=== PATIENT | female | born 1950 | race American Indian/Alaskan Native ===

== ENCOUNTER 2018-08-04 12:30 | Inpatient (IN) | payer MEDICARE ==
--- NOTE | 2018-08-04 12:53 | Emergency Department Report ---
Blank Doc - Documentation Documentation: This is a 68-year-old female that presents with mal lower legs swelling and SOB. HX of CHF. Stated has been out of her insulin medications since February of last year. This initial assessment/diagnostic orders/clinical plan/treatment(s) is/are subject to change based on patient's health status, clinical progression and re- assessment by fellow clinical providers in the ED. Further treatment and workup at subsequent clinical providers discretion. Patient/guardians urged not to elope from the ED as their condition may be serious if not clinically assessed and managed. Initial orders include: 1- Patient sent to MAIN ED for further evaluation and treatment 2- labs 3- CXR 4- EKG 5- blood sugar
[2018-08-04] MEDS ORDERED: LASIX IV ONE (13:23)
--- NOTE | 2018-08-04 13:28 | Emergency Department Report ---
ED Shortness of Breath HPI - General Chief Complaint: Dyspnea/Respdistress Stated Complaint: SOB Time Seen by Provider: 08/04/18 12:52 Source: patient Mode of arrival: Wheelchair Limitations: No Limitations - History of Present Illness Initial Comments: Patient is 68 year old female with history of congestive heart failure, hypertension and diabetes. Patient presented to the ER complaining of shortness of breath and difficulty in breathing over the last 3 days. Patient stated that she has a diagnosis of congestive heart failure but she is not taking any medication. Patient found to have an oxygen saturation of 84%. Patient denied any chest pain. Patient also complaining of bilateral lower extremity swelling. I will am examining her patient found to have a fungating right breast mass. Patient stated that she discovered this mass three years ago and she did not wanted to be checked. She stated that she is here for the shortness of breath only. Patient informed this is most likely a breast cancer but she said she does not want to talk about it. MD Complaint: shortness of breath, cough -: days(s) (3) Known History Of: congestive heart failure Treatments Prior to Arrival: none - Related Data Home Oxygen Therapy: No Home Medications Medication Instructions Recorded Confirmed Last Taken No Known Home Medications [No 08/04/18 08/04/18 Unknown Reported Home Medications] Allergies Allergy/AdvReac Type Severity Reaction Status Date / Time No Known Allergies Allergy Unverified 08/04/18 12:53 ED Review of Systems ROS: Stated complaint: SOB Other details as noted in HPI Comment: All other systems reviewed and negative Constitutional: denies: chills, fever Respiratory: cough, orthopnea, shortness of breath, SOB with exertion, SOB at rest. denies: wheezing Cardiovascular: palpitations. denies: chest pain Gastrointestinal: denies: abdominal pain, nausea, vomiting, diarrhea, constipation, hematemesis, melena Neurological: denies: headache, weakness, numbness, paresthesias, confusion, abnormal gait ED Past Medical Hx - Past Medical History Previous Medical History?: Yes Hx Congestive Heart Failure: Yes Hx Diabetes: Yes - Social History Smoking Status: Former Smoker Substance Use Type: None - Medications Home Medications: Home Medications Medication Instructions Recorded Confirmed Last Taken Type No Known Home Medications [No 08/04/18 08/04/18 Unknown History Reported Home Medications] ED Physical Exam - General Limitations: No Limitations General appearance: alert, in distress (moderate respiratory distress) - Head Head exam: Present: atraumatic, normocephalic, normal inspection - Eye Eye exam: Present: normal appearance - ENT ENT exam: Present: normal exam, normal orophraynx, mucous membranes moist - Neck Neck exam: Present: normal inspection, full ROM. Absent: tenderness, meningismus, lymphadenopathy, thyromegaly - Respiratory Respiratory exam: Present: respiratory distress, rales, decreased breath sounds. Absent: wheezes, rhonchi, stridor, accessory muscle use, prolonged expiratory - Cardiovascular Cardiovascular Exam: Present: tachycardia - GI/Abdominal GI/Abdominal exam: Present: soft, normal bowel sounds. Absent: distended, tenderness, guarding, rebound, rigid, organomegaly, mass, bruit, pulsatile mass, hernia - Extremities Exam Extremities exam: Present: normal inspection, pedal edema - Back Exam Back exam: Present: normal inspection, full ROM - Neurological Exam Neurological exam: Present: alert, oriented X3, CN II-XII intact, normal gait, reflexes normal. Absent: motor sensory deficit - Skin Skin exam: Present: warm, intact, normal color ED Course Vital Signs 08/04/18 08/04/18 08/04/18 12:53 13:28 13:30 Temperature 98.7 F Pulse Rate 102 H 101 H 99 H Respiratory 18 15 21 Rate Blood Pressure 157/88 Blood Pressure [Left] O2 Sat by Pulse 84 95 94 Oximetry 08/04/18 08/04/18 08/04/18 13:46 14:00 14:09 Temperature Pulse Rate 97 H 97 H 96 H Respiratory 15 15 22 Rate Blood Pressure 189/100 Blood Pressure 188/97 [Left] O2 Sat by Pulse 100 100 Oximetry 08/04/18 08/04/18 08/04/18 14:16 14:20 14:30 Temperature Pulse Rate 96 H 95 H Respiratory 15 22 14 Rate Blood Pressure 188/97 188/104 Blood Pressure [Left] O2 Sat by Pulse 100 99 Oximetry 08/04/18 08/04/18 08/04/18 14:45 15:01 15:15 Temperature Pulse Rate 94 H 93 H 98 H Respiratory 14 17 12 Rate Blood Pressure 188/97 193/100 193/100 Blood Pressure [Left] O2 Sat by Pulse 99 100 85 Oximetry 08/04/18 08/04/18 08/04/18 15:31 15:45 16:00 Temperature Pulse Rate 99 H 91 H 89 Respiratory 29 H 17 23 Rate Blood Pressure 193/100 207/96 187/107 Blood Pressure [Left] O2 Sat by Pulse 100 100 Oximetry 08/04/18 08/04/18 08/04/18 16:09 16:15 16:16 Temperature Pulse Rate 92 H 91 H 92 H Respiratory 18 17 Rate Blood Pressure 207/96 212/115 Blood Pressure 212/115 [Left] O2 Sat by Pulse 100 100 Oximetry 08/04/18 08/04/18 08/04/18 16:30 16:45 16:58 Temperature Pulse Rate 92 H 89 Respiratory 25 H 19 20 Rate Blood Pressure 184/114 184/114 Blood Pressure 204/111 [Left] O2 Sat by Pulse 100 100 100 Oximetry 08/04/18 08/04/18 08/04/18 17:00 17:15 17:31 Temperature Pulse Rate 89 89 88 Respiratory 12 Rate Blood Pressure 184/109 184/114 187/107 Blood Pressure [Left] O2 Sat by Pulse 100 100 100 Oximetry 08/04/18 08/04/18 08/04/18 17:45 18:00 18:06 Temperature Pulse Rate 89 89 87 Respiratory Rate Blood Pressure 184/109 182/110 182/110 Blood Pressure [Left] O2 Sat by Pulse 100 100 Oximetry 08/04/18 08/04/18 08/04/18 18:15 18:26 18:31 Temperature Pulse Rate 84 96 H Respiratory 20 20 Rate Blood Pressure 182/110 Blood Pressure 193/105 176/96 [Left] O2 Sat by Pulse 100 100 100 Oximetry ED Medical Decision Making - Lab Data Result diagrams: 08/04/18 13:30 08/04/18 13:30 - EKG Data -: EKG Interpreted by Fl EKG shows normal: sinus rhythm - EKG Data Interpretation: no acute changes - Radiology Data Radiology results: report reviewed Chest x-ray is showing bilateral pleural effusion and pulmonary edema consistent with congestive heart failure. - Medical Decision Making Patient is 68 year old female with history of congestive heart failure, hypertension and diabetes. Patient presented to the ER complaining of shortness of breath and difficulty in breathing over the last 3 days. Patient stated that she has a diagnosis of congestive heart failure but she is not taking any medication. Patient denied any chest pain. Patient also complaining of bilateral lower extremity swelling. While am examining her patient found to have a fungating right breast mass. Patient stated that she discovered this mass three years ago and she did not wanted to be checked. She stated that she is here for the shortness of breath only. Patient informed this is most likely a breast cancer but she said she does not want to talk about it. Patient found to be in acute congestive heart failure. Patient given Lasix and started on BiPAP. The patient stated that she is feeling better. I discussed the patient is Dr. Chong, he agreed to admit the patient to medical service. Critical Care Time: Yes Critical care time in (mins) excluding proc time.: 30 Critical care attestation.: If time is entered above; I have spent that time in minutes in the direct care of this critically ill patient, excluding procedure time. ED Disposition Clinical Impression: Acute exacerbation of CHF (congestive heart failure), Acute and chronic respiratory failure Disposition: OP ADMIT IP TO THIS HOSP Is pt being admited?: Yes Condition: Stable
--- NOTE | 2018-08-04 13:38 | XRay Report ---
ROUTINE CHEST, TWO VIEWS: HISTORY: Dyspnea. No comparison. Mild cardiomegaly and pulmonary venous congestion are suspected. Small moderate left pleural effusion and trace right pleural effusion are identified. There is compressive atelectasis of the left lower lobe and lingula. No obvious pneumonia. No pneumothorax. IMPRESSION: Mild CHF.
[2018-08-04 14:03] LABS: Basophils # (Auto) 0.2 K/mm3 (0.0-0.1); Basophils % (Auto) 1.6 % (0.0-1.8); Eosinophils # (Auto) 0.2 K/mm3 (0.0-0.4); Hematocrit 27.8 % (30.3-42.9); Lymphocytes # (Auto) 1.9 K/mm3 (1.2-5.4); Lymphocytes % (Auto) 16.9 % (13.4-35.0); Mean Corpuscular HGB Conc 33 % (30-34); Mean Corpuscular Volume 78 fl (79-97); Monocytes # (Auto) 0.7 K/mm3 (0.0-0.8); Monocytes % (Auto) 6.6 % (0.0-7.3); Platelet Count 419 K/mm3 (140-440); Red Blood Count 3.55 M/mm3 (3.65-5.03); Red Cell Distribution Width 15.6 % (13.2-15.2)
[2018-08-04 14:12] LABS: INR 0.99 (0.87-1.13)
[2018-08-04 14:13] LABS: Partial Thromboplastin Time 32.3 Sec. (24.2-36.6)
[2018-08-04 14:37] LABS: Creatine Kinase MB 4.3 ng/mL (0.0-4.0)
[2018-08-04 14:40] LABS: Albumin 2.3 g/dL (3.9-5); Calcium 8.7 mg/dL (8.4-10.2)
[2018-08-04] MEDS ORDERED: NITROSTAT SL ONE ×2 (16:08→16:15)
[2018-08-04] MEDS ORDERED: APRESOLINE IV PRN (17:38)
[2018-08-04] MEDS ORDERED: APRESOLINE ONE (18:03)
[2018-08-04] MEDS ORDERED: IBUPROFEN PO PRN (23:08)
[2018-08-04] MEDS ORDERED: ZOFRAN IV PRN (23:08)
[2018-08-04] MEDS ORDERED: TYLENOL PO PRN (23:08)
[2018-08-04] MEDS ORDERED: SODIUM CHLORIDE FLUSH SYRINGE 10 ML IV PRN (23:08)
--- NOTE | 2018-08-04 23:20 | History and Physical Report ---
History of Present Illness Date of examination: 08/04/18 Date of admission: 08/04/18 15:04 Chief complaint: Shortness of breath for 3-5 days History of present illness: 68-year-old female with history of congestive heart failure hypertension and diabetes presents to the ER with increasing shortness of breath for the last 3-5 days. Patient has severe orthopnea and shortness of breath on minimal exertion. Patient has class IV NYHA symptoms. Patient not taking any medications. No chest pain. Very noncompliant. Precipitating factors== not taking diuretics. Relieving factors--compliance. No fever or chills. Past Medical History Previous Medical History?: Yes Congestive Heart Failure: Yes Diabetes: Yes Past surgical history N/a Social History Smoking Status: Former Smoker Substance Use Type: None Family history Htn Medications Home Medications: Home Medications Medication Instructions Recorded Confirmed Last Taken Type No Known Home Medications [No 08/04/18 08/04/18 Unknown History Reported Home Medications] Review of Systems ROS: Stated complaint: SOB Other details as noted in HPI Comment: All other systems reviewed and negative Constitutional: denies: chills, fever Respiratory: cough, orthopnea, shortness of breath, SOB with exertion, SOB at rest. denies: wheezing Cardiovascular: palpitations. denies: chest pain Gastrointestinal: denies: abdominal pain, nausea, vomiting, diarrhea, constipation, hematemesis, melena Neurological: denies: headache, weakness, numbness, paresthesias, confusion, abnormal gait 14 point review of systems done and otherwise negative Medications and Allergies Allergies Allergy/AdvReac Type Severity Reaction Status Date / Time No Known Allergies Allergy Unverified 08/04/18 12:53 Home Medications Medication Instructions Recorded Confirmed Last Taken Type No Known Home Medications [No 08/04/18 08/04/18 Unknown History Reported Home Medications] Active Meds: Active Medications Acetaminophen (Tylenol) 650 mg PO Q4H PRN PRN Reason: Pain MILD(1-3)/Fever >100.5/GANT Amlodipine Besylate (Norvasc) 10 mg PO QDAY [facility] Famotidine (Pepcid) 20 mg PO BID [facility] Furosemide (Lasix) 40 mg IV 0600,1800 [facility] Hydralazine HCl (Apresoline) 10 mg IV Q3H PRN PRN Reason: Blood Pressure Ibuprofen (Motrin) 600 mg PO Q6H PRN PRN Reason: Pain, Mild (1-3) Losartan Potassium (Cozaar) 100 mg PO QDAY [facility] Morphine Sulfate (Morphine) 2 mg IV Q4H PRN PRN Reason: Pain, Moderate (4-6) Ondansetron HCl (Zofran) 4 mg IV Q8H PRN PRN Reason: Nausea And Vomiting Potassium Chloride (K-Dur) 20 meq PO Q12H [facility] Sodium Chloride (Sodium Chloride Flush Syringe 10 Ml) 10 ml IV BID [facility] Sodium Chloride (Sodium Chloride Flush Syringe 10 Ml) 10 ml IV PRN PRN PRN Reason: LINE FLUSH Exam - Constitutional Vitals: Temp Pulse Resp BP Pulse Ox 94.5 F L 94 H 22 179/102 100 08/04/18 22:04 08/04/18 20:54 08/04/18 21:22 08/04/18 20:54 08/04/18 21:22 General appearance: Present: severe distress, well-nourished - EENT Eyes: Present: PERRL ENT: hearing intact, clear oral mucosa - Neck Neck: Present: supple, normal ROM - Respiratory Respiratory effort: normal Respiratory: bilateral: CTA - Cardiovascular Heart rate: 100 Rhythm: regular Heart Sounds: Present: S1 & S2. Absent: rub, click - Extremities Extremities: no ischemia, pulses intact, pulses symmetrical, No edema Peripheral Pulses: within normal limits - Abdominal General gastrointestinal: Present: soft, non-tender, non-distended, normal bowel sounds Female genitourinary: Present: normal - Integumentary Integumentary: Present: clear, warm, dry - Musculoskeletal Musculoskeletal: gait normal, strength equal bilaterally - Psychiatric Psychiatric: appropriate mood/affect, intact judgment & insight - Neurologic Neurologic: CNII-XII intact, moves all extremities - Allied Health Allied health notes reviewed: nursing, case management Results - Labs CBC & Chem 7: 08/04/18 13:30 08/04/18 13:30 Labs: Laboratory Last Values WBC 11.4 K/mm3 (4.5-11.0) H 08/04/18 13:30 RBC 3.55 M/mm3 (3.65-5.03) L 08/04/18 13:30 Hgb 9.0 gm/dl (10.1-14.3) L 08/04/18 13:30 Hct 27.8 % (30.3-42.9) L 08/04/18 13:30 MCV 78 fl (79-97) L 08/04/18 13:30 MCH 25 pg (28-32) L 08/04/18 13:30 MCHC 33 % (30-34) 08/04/18 13:30 RDW 15.6 % (13.2-15.2) H 08/04/18 13:30 Plt Count 419 K/mm3 (140-440) 08/04/18 13:30 Lymph % (Auto) 16.9 % (13.4-35.0) 08/04/18 13:30 [place] % (Auto) 6.6 % (0.0-7.3) 08/04/18:30 Eos % (Auto) 2.0 % (0.0-4.3) 08/04/18 13:30 Baso % (Auto) 1.6 % (0.0-1.8) 08/04/18 13:30 Lymph # 1.9 K/mm3 (1.2-5.4) 08/04/18 13:30 [place] # 0.7 K/mm3 (0.0-0.8) 08/04/18 13:30 Eos # 0.2 K/mm3 (0.0-0.4) 08/04/18 13:30 Baso # 0.2 K/mm3 (0.0-0.1) H 08/04/18 13:30 Seg Neutrophils % 72.9 % (40.0-70.0) H 08/04/18 13:30 Seg Neutrophils # 8.3 K/mm3 (1.8-7.7) H 08/04/18 13:30 PT 13.7 Sec. (12.2-14.9) 08/04/18 13:30 INR 0.99 (0.87-1.13) 08/04/18 13:30 APTT 32.3 Sec. (24.2-36.6) 08/04/18 13:30 VBG pH 7.325 (7.320-7.420) 08/04/18 13:30 Sodium 141 mmol/L (137-145) 08/04/18 13:30 Potassium 3.9 mmol/L (3.6-5.0) 08/04/18 13:30 Chloride 107.9 mmol/L (98-107) H 08/04/18 13:30 Carbon Dioxide 22 mmol/L (22-30) 08/04/18 13:30 15 mmol/L 08/04/18 13:30 BUN 23 mg/dL (7-17) H 08/04/18 13:30 1.4 mg/dL (0.7-1.2) H 08/04/18 13:30 Estimated GFR 46 ml/min 08/04/18 13:30 16 % 08/04/18 13:30 Glucose 183 mg/dL (65-100) H 08/04/18 13:30 Calcium 8.7 mg/dL (8.4-10.2) 08/04/18 13:30 0.20 mg/dL (0.1-1.2) 08/04/18 13:30 AST 17 units/L (5-40) 08/04/18 13:30 ALT 15 units/L (7-56) 08/04/18 13:30 132 units/L (35-129) H 08/04/18 13:30 164 units/L (30-135) H 08/04/18 13:30 CK-MB (CK-2) 4.3 ng/mL (0.0-4.0) H 08/04/18 13:30 CK-MB (CK-2) Rel Index 2.6 (0-4) 08/04/18 13:30 0.015 ng/mL (0.00-0.029) 08/04/18 16:47 NT-Pro-B Natriuret Pep 4330 pg/mL (0-900) H 08/04/18 13:30 7.2 g/dL (6.3-8.2) 08/04/18 13:30 2.3 g/dL (3.9-5) L 08/04/18 13:30 0.5 % 08/04/18 13:30 Short CBC 08/04/18 Range/Units 13:30 WBC 11.4 H (4.5-11.0) K/mm3 Hgb 9.0 L (10.1-14.3) gm/dl Hct 27.8 L (30.3-42.9) % Plt Count 419 (140-440) K/mm3 BMP 08/04/18 13:30 Sodium 141 Potassium 3.9 Chloride 107.9 H Carbon Dioxide 22 BUN 23 H Creatinine 1.4 H Glucose 183 H Calcium 8.7 Cardiac Enzymes 08/04/18 08/04/18 Range/Units 13:30 16:47 Total Creatine Kinase 164 H (30-135) units/L CK-MB (CK-2) 4.3 H (0.0-4.0) ng/mL Troponin T 0.019 0.015 (0.00-0.029) ng/mL Liver Function 08/04/18 Range/Units 13:30 Total Bilirubin 0.20 (0.1-1.2) mg/dL AST 17 (5-40) units/L ALT 15 (7-56) units/L Alkaline Phosphatase 132 H (35-129) units/L Albumin 2.3 L (3.9-5) g/dL - Imaging and Cardiology EKG: report reviewed (sinus tachycardia probable left ventricular enlargement and left atrial enlargement) Chest x-ray: report reviewed Imaging and Cardiology: Chest x-ray IMPRESSION: Mild CHF. Assessment and Plan Advance Directives: Yes (full code) VTE prophylaxis?: Chemical Plan of care discussed with patient/family: Yes - Patient Problems (1) Hypertensive emergency Current Visit: Yes Status: Acute Plan to address problem: Patient given multiple doses of IV hydralazine to bring the blood pressure down Blood pressure still high Losartan Coreg and amlodipine added IV hydralazine every 3 hours when necessary If necessary start Cardene drip (2) Acute exacerbation of CHF (congestive heart failure) Current Visit: Yes Status: Acute Qualifiers: Heart failure type: combined systolic and diastolic Qualified Code(s): I50.43 - Acute on chronic combined systolic (congestive) and diastolic (congestive) heart failure Plan to address problem: Patient initiated on IV Lasix and potassium Echocardiogram ordered Cardiology consult requested BNP high (3) Type 2 diabetes mellitus Current Visit: Yes Status: Chronic 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
[2018-08-04] MEDS: K-DUR PO SCH (23:41)
[2018-08-04] MEDS: COZAAR PO SCH (23:41)
[2018-08-05 01:39] LABS: % Iron Saturation 10.69 %
[2018-08-05 06:27] LABS: Hemoglobin 8.4 gm/dl (10.1-14.3); Mean Corpuscular HGB Conc 32 % (30-34); Mean Corpuscular Volume 79 fl (79-97); Red Cell Distribution Width 15.7 % (13.2-15.2)
[2018-08-05 06:28] LABS: Basophils # (Auto) 0.1 K/mm3 (0.0-0.1); Basophils % (Auto) 0.9 % (0.0-1.8); Eosinophils # (Auto) 0.3 K/mm3 (0.0-0.4); Eosinophils % (Auto) 2.6 % (0.0-4.3); Lymphocytes # (Auto) 1.7 K/mm3 (1.2-5.4); Lymphocytes % (Auto) 17.7 % (13.4-35.0); Monocytes # (Auto) 0.9 K/mm3 (0.0-0.8); Monocytes % (Auto) 9.4 % (0.0-7.3); Platelet Count 396 K/mm3 (140-440)
[2018-08-05] MEDS: LASIX IV SCH ×2 (06:50→18:44)
[2018-08-05 07:00] LABS: Calcium 8.5 mg/dL (8.4-10.2)
[2018-08-05] MEDS: HumaLOG SUB-Q SCH ×2 (08:18→21:58)
[2018-08-05] MEDS: DUONEB *Not for PRN Use IH SCH ×4 (09:34→21:00)
--- NOTE | 2018-08-05 10:00 | Consultation ---
History of Present Illness Consult date: 08/05/18 Consult reason: congestive heart failure History of present illness: Patient is a 68 year old woman with a history of Diabetes, Hypertension and a Right Breast Mass. She also has a history of congestive heart failure. As per patient, she is not taking any medications and has not seen a physician. Patient presents to this hospital with shortness of breath, fluid overload, anasarca with edema extending upwards to thighs and abdomen. CXR shows cardiomegaly with interstitial edema and bilateral pleural effusion. Initial labs shows acute renal failure, creatinine of 1.4 and anemia, hemoglobin 8.4. Patient was admitted to [facility] 4 months ago with similar symptoms. An echocardiogram at that time revealed a normal left ventricular systolic function, ejection fraction 60-65%. Medications and Allergies Allergies Allergy/AdvReac Type Severity Reaction Status Date / Time No Known Allergies Allergy Unverified 08/04/18 12:53 Home Medications Medication Instructions Recorded Confirmed Last Taken Type No Known Home Medications [No 08/04/18 08/04/18 Unknown History Reported Home Medications] Active Meds: Active Medications Acetaminophen (Tylenol) 650 mg PO Q4H PRN PRN Reason: Pain MILD(1-3)/Fever >100.5/GANT Albuterol/Ipratropium (Duoneb *Not For Prn Use*) 1 ampul IH QIDRT [facility] Last Admin: 08/05/18 09:34 Dose: 1 ampul Documented by: Amlodipine Besylate (Norvasc) 10 mg PO QDAY [facility] Famotidine (Pepcid) 20 mg PO BID [facility] Furosemide (Lasix) 40 mg IV 0600,1800 [facility] Last Admin: 08/05/18 06:50 Dose: 40 mg Documented by: Hydralazine HCl (Apresoline) 10 mg IV Q3H PRN PRN Reason: Blood Pressure Ibuprofen (Motrin) 600 mg PO Q6H PRN PRN Reason: Pain, Mild (1-3) Insulin Human Lispro (Humalog) 0 unit SUB-Q [facility]; Protocol Losartan Potassium (Cozaar) 100 mg PO QDAY [facility] Last Admin: 08/04/18 23:41 Dose: 100 mg Documented by: Morphine Sulfate (Morphine) 2 mg IV Q4H PRN PRN Reason: Pain, Moderate (4-6) Ondansetron HCl (Zofran) 4 mg IV Q8H PRN PRN Reason: Nausea And Vomiting Potassium Chloride (K-Dur) 20 meq PO Q12HR [facility] Last Admin: 08/04/18 23:41 Dose: 20 meq Documented by: Sodium Chloride (Sodium Chloride Flush Syringe 10 Ml) 10 ml IV BID [facility] Sodium Chloride (Sodium Chloride Flush Syringe 10 Ml) 10 ml IV PRN PRN PRN Reason: LINE FLUSH Physical Examination Vital Signs Temp Pulse Resp BP Pulse Ox 98.7 F 102 H 18 157/88 84 08/04/18 12:53 08/04/18 12:53 08/04/18 12:53 08/04/18 12:53 08/04/18 12:53 General appearance: no acute distress HEENT: Positive: PERRL Cardiac: Positive: Reg Rate and Rhythm Lungs: Positive: Decreased Breath Sounds Neuro: Positive: Grossly Intact Extremities: Present: edema Results 08/05/18 05:15 08/05/18 05:15 Cardiac Enzymes 08/04/18 08/05/18 Range/Units 13:30 05:15 AST 17 18 (5-40) units/L CK-MB (CK-2) 4.3 H (0.0-4.0) ng/mL Coagulation 08/04/18 Range/Units 13:30 PT 13.7 (12.2-14.9) Sec. INR 0.99 (0.87-1.13) APTT 32.3 (24.2-36.6) Sec. CBC 08/04/18 08/05/18 Range/Units 13:30 05:15 WBC 11.4 H 9.8 (4.5-11.0) K/mm3 RBC 3.55 L 3.30 L (3.65-5.03) M/mm3 Hgb 9.0 L 8.4 L (10.1-14.3) gm/dl Hct 27.8 L 26.0 L (30.3-42.9) % Plt Count 419 396 (140-440) K/mm3 Lymph # 1.9 1.7 (1.2-5.4) K/mm3 [place] # 0.7 0.9 H (0.0-0.8) K/mm3 Eos # 0.2 0.3 (0.0-0.4) K/mm3 Baso # 0.2 H 0.1 (0.0-0.1) K/mm3 Comprehensive Metabolic Panel 08/04/18 08/05/18 Range/Units 13:30 05:15 Sodium 141 143 (137-145) mmol/L Potassium 3.9 4.3 (3.6-5.0) mmol/L Chloride 107.9 H 111.1 H (98-107) mmol/L Carbon Dioxide 22 20 L (22-30) mmol/L BUN 23 H 23 H (7-17) mg/dL Creatinine 1.4 H 1.4 H (0.7-1.2) mg/dL Glucose 183 H 136 H (65-100) mg/dL Calcium 8.7 8.5 (8.4-10.2) mg/dL AST 17 18 (5-40) units/L ALT 15 13 (7-56) units/L Alkaline Phosphatase 132 H 116 (35-129) units/L Total Protein 7.2 6.4 (6.3-8.2) g/dL Albumin 2.3 L 2.0 L (3.9-5) g/dL Assessment and Plan Fluid overload Heart failure with a preserved ejection fraction 60-65% by echo 04/2018 at [facility] Bilateral pleural effusion Acute renal failure Diabetes Hypertension Hx of Right Breast mass Anemia Noncompliant with medications and follow up Recommendations We will obtain an echocardiogram for LVEF reassessment. Pulmonary consultation and evaluation of shortness of breath, wheezing and pleural effusion.
[2018-08-05] MEDS: NORVASC PO SCH (10:51)
[2018-08-05] MEDS: PEPCID PO SCH ×2 (10:51→22:00)
[2018-08-05] MEDS: COZAAR PO SCH (10:51)
[2018-08-05] MEDS: K-DUR PO SCH ×2 (10:51→21:59)
--- NOTE | 2018-08-05 15:22 | Consultation ---
History of Present Illness - Reason for Consult Consult date: 08/05/18 acute renal failure, other (suspected nephrotic syndrome) - History of Present Illness The patient is a 68 YO female with history significant for Morbid Obesity, HTN, HFpEF, DM type 2 and R breast mass who presented to [facility] with increasing shortness of breath for the past month. Patient is a very poor historian. Her symptoms are worse for about 5 days. Associated symptoms include orthopnea, MOROCHO and bilateral leg swelling. Patient currently not taking any medications at home. Patient denies fever, chills, dysuria, hematuria, foamy urine, GANT, CP, dizziness, syncope, N, V, D, abd pain or jaundice. Creatinine was 1.4 with Albumin 2. Nephrology was consulted for further evaluation. Her creatinine was normal in Mar 2018. Past History Past Medical History: diabetes, heart failure, hypertension Medications and Allergies Allergies Allergy/AdvReac Type Severity Reaction Status Date / Time No Known Allergies Allergy Unverified 08/04/18 12:53 Home Medications Medication Instructions Recorded Confirmed Last Taken Type No Known Home Medications [No 08/04/18 08/04/18 Unknown History Reported Home Medications] Active Meds: Active Medications Acetaminophen (Tylenol) 650 mg PO Q4H PRN PRN Reason: Pain MILD(1-3)/Fever >100.5/GANT Albuterol/Ipratropium (Duoneb *Not For Prn Use*) 1 ampul IH TIDRT [facility] Last Admin: 08/05/18 14:33 Dose: 1 ampul Documented by: Amlodipine Besylate (Norvasc) 10 mg PO QDAY [facility] Last Admin: 08/05/18 10:51 Dose: 10 mg Documented by: Famotidine (Pepcid) 20 mg PO BID [facility] Last Admin: 08/05/18 10:51 Dose: 20 mg Documented by: Furosemide (Lasix) 40 mg IV 0600,1800 [facility] Last Admin: 08/05/18 06:50 Dose: 40 mg Documented by: Hydralazine HCl (Apresoline) 10 mg IV Q3H PRN PRN Reason: Blood Pressure Ibuprofen (Motrin) 600 mg PO Q6H PRN PRN Reason: Pain, Mild (1-3) Insulin Human Lispro (Humalog) 0 unit SUB-Q [facility]; Protocol Losartan Potassium (Cozaar) 100 mg PO QDAY [facility] Last Admin: 08/05/18 10:51 Dose: 100 mg Documented by: Morphine Sulfate (Morphine) 2 mg IV Q4H PRN PRN Reason: Pain, Moderate (4-6) Ondansetron HCl (Zofran) 4 mg IV Q8H PRN PRN Reason: Nausea And Vomiting Potassium Chloride (K-Dur) 20 meq PO Q12HR [facility] Last Admin: 08/05/18 10:51 Dose: 20 meq Documented by: Sodium Chloride (Sodium Chloride Flush Syringe 10 Ml) 10 ml IV BID [facility] Sodium Chloride (Sodium Chloride Flush Syringe 10 Ml) 10 ml IV PRN PRN PRN Reason: LINE FLUSH Review of Systems Constitutional: weight gain, no weight loss, no fever, no chills, no anorexia, no fatigue, no weakness Breasts: deferred Cardiovascular: orthopnea, edema, shortness of breath, dyspnea on exertion, paroxysmal nocturnal dyspnea, high blood pressure, leg edema, decreased exercise tolerance, no chest pain, no palpitations, no syncope, no lightheadedness Respiratory: shortness of breath, dyspnea on exertion, no cough, no hemoptysis Gastrointestinal: no abdominal pain, no nausea, no vomiting, no diarrhea, no melena Musculoskeletal: no prior amputations Integumentary: no rash, no sores, no wounds, no jaundice Neurological: no seizures, no syncope, no convulsions, no aphasia, no change in speech, no change in mentation, no confusion Exam - Vital Signs Vital signs: Vital Signs Temp Pulse Resp BP Pulse Ox 98.7 F 102 H 18 157/88 84 08/04/18 12:53 08/04/18 12:53 08/04/18 12:53 08/04/18 12:53 08/04/18 12:53 - General Appearance General appearance: well-developed, well-nourished, appears stated age, obese, other (tachypnea) EENT: ATNC, PERRL, mucous membranes moist, hearing intact, vision intact Neck: Present: neck supple, trachea midline Respiratory: Wheezes Heart: regular, S1S2, no murmurs Gastrointestinal: Present: normoactive bowel sounds, obese. Absent: tenderness, distended Integumentary: no rash, warm and dry Neurologic: no focal deficit, no asterixis, alert and oriented x3 Musculoskeletal: Present: other (3+ edema of both LEs noted) Psychiatric: cooperative Results - Lab Results 08/05/18 05:15 08/06/18 05:39 Most recent lab results Calcium 8.5 mg/dL (8.4-10.2) 08/05/18 05:15 - Image Kidney/bladder ultrasound: pending Assessment and Plan 1. Acute kidney injury: Patient has features suggestive of nephrotic syndrome. Likely the STEVIE is related to nephrotic syndrome. Urine studies and Renal US ordered. Monitor renal function. Avoid nephrotoxic agents. Meds dosage based on GFR. 2. Suspected Nephrotic syndrome: Urine studies pending. Likely Minimal change or FSGS. Unlikely Nephritis. NUBIA, ANCA, C3, C4 and SPEP ordered. 3. FEN: Volume overload, IV Lasix. Monitor lytes. 4. HFpEF: Followed by Cards. 5. R breast mass: Heme-Onc consult. 6. Anemia: POA.
--- NOTE | 2018-08-05 16:31 | Progress Note ---
Assessment and Plan / Hypertensive emergency Patient given multiple doses of IV hydralazine to bring the blood pressure down Losartan Coreg and amlodipine added IV hydralazine every 3 hours when necessary If necessary start Cardene drip /Acute exacerbation of CHF (congestive heart failure) with preserved EF Patient initiated on IV Lasix and potassium Echocardiogram ordered, previous echo at [facility] showed EF was 55-60% Cardiology consult requested / Right breast mass, consulted oncology /Type 2 diabetes mellitus Check hemoglobin A1c SSI Coverage for now / STEVIE (acute kidney injury) Patient on Lasix Nephrology consult requested because the Lasix can increase the creatinine /Anemia Anemia workup ordered / DVT prophylaxis On Lovenox and GI prophylaxis Brief History: 68-year-old woman with a history of Diabetes, Hypertension and a Right Breast Mass for several years who presents to the hospital with shortness of breath and bilateral lower extremity edema with huge breast mass. Chest x-ray reveals bilateral pleural effusion, with at least moderate severity effusion on the left. The lung crooks show mild interstitial edema. EKG is normal sinus rhythm with no acute changes, essentially normal ECG. Radiological data: EKG: report reviewed (sinus tachycardia probable left ventricular enlargement and left atrial enlargement) Chest x-ray: Mild CHF. Hospitalist Physical exam: GENERAL: well-developed and well-nourished lying on bed appeared to be in no discomfort. HEENT: Normocephalic. Atraumatic. No conjunctival congestion or icterus. Patient has moist mucous membranes. NECK: Supple. Trachea midline. CHEST/LUNGS: Clear to auscultated bilaterally, breathing nonlabored. No wheezes crackles or rhonchi. right sided breast mass HEART/CARDIOVASCULAR: Regular in rate and rhythm. S1 and S2 positive. ABDOMEN: Abdomen is soft, nontender. Patient has normal bowel sounds. SKIN: There is no rash. Warm and dry. NEURO: No focal motor deficit. Follows command. MUSCULOSKELETAL: No joint effusion or tenderness. EXTRIMITY: No edema, no cyanosis or clubbing. PSYCH: Cooperative. Subjective Date of service: 08/05/18 Interval history: Patient seen and examined. Medical records and medication list reviewed. No acute event overnight noted by the RN. Patient c/o difficulty breathing on minimal exception. Patient is tolerating diet. Discussed plan of care at bedside with patient. states she has that breast mass for several years Objective - Constitutional Vitals: Vital Signs - 12hr 08/05/18 08/05/18 08/05/18 08:05 08:22 08:23 Temperature 98.2 F Pulse Rate 99 H 91 H Pulse Rate [ Posterior Bilateral Bases ] Pulse Rate [ Throughout] Respiratory Rate [Posterior Bilateral Bases] Respiratory Rate [ Throughout] Blood Pressure 156/82 O2 Sat by Pulse 96 Oximetry 08/05/18 08/05/18 08/05/18 09:39 09:40 11:53 Temperature Pulse Rate Pulse Rate [ 96 H Posterior Bilateral Bases ] Pulse Rate [ 100 H Throughout] Respiratory 20 Rate [Posterior Bilateral Bases] Respiratory 18 Rate [ Throughout] Blood Pressure O2 Sat by Pulse 100 99 Oximetry 08/05/18 08/05/18 12:09 14:00 Temperature Pulse Rate 107 H Pulse Rate [ 93 H Posterior Bilateral Bases ] Pulse Rate [ 89 Throughout] Respiratory 18 Rate [Posterior Bilateral Bases] Respiratory 18 Rate [ Throughout] Blood Pressure 160/72 O2 Sat by Pulse 94 Oximetry - Labs CBC & Chem 7: 08/05/18 05:15 08/06/18 05:39 Labs: Abnormal lab results 08/04/18 08/05/18 08/05/18 Range/Units 23:15 00:35 00:35 RBC (3.65-5.03) M/mm3 Hgb (10.1-14.3) gm/dl Hct (30.3-42.9) % MCH (28-32) pg RDW (13.2-15.2) % Towns % (Auto) (0.0-7.3) % Towns # (0.0-0.8) K/mm3 Chloride (98-107) mmol/L Carbon Dioxide (22-30) mmol/L BUN (7-17) mg/dL Creatinine (0.7-1.2) mg/dL Glucose (65-100) mg/dL POC Glucose (70-105) Hemoglobin A1c 10.9 H (4-6) % Iron 17 L (37-170) ug/dL TIBC 159 L (250-450) mcg/dL Transferrin 145 L (192-382) mg/dl Albumin (3.9-5) g/dL Vitamin B12 > 2000 H (211-911) pg/mL 08/05/18 08/05/18 08/05/18 Range/Units 05:15 05:15 12:15 RBC 3.30 L (3.65-5.03) M/mm3 Hgb 8.4 L (10.1-14.3) gm/dl Hct 26.0 L (30.3-42.9) % MCH 25 L (28-32) pg RDW 15.7 H (13.2-15.2) % Towns % (Auto) 9.4 H (0.0-7.3) % Towns # 0.9 H (0.0-0.8) K/mm3 Chloride 111.1 H (98-107) mmol/L Carbon Dioxide 20 L (22-30) mmol/L BUN 23 H (7-17) mg/dL Creatinine 1.4 H (0.7-1.2) mg/dL Glucose 136 H (65-100) mg/dL POC Glucose 180 H (70-105) Hemoglobin A1c (4-6) % Iron (37-170) ug/dL TIBC (250-450) mcg/dL Transferrin (192-382) mg/dl Albumin 2.0 L (3.9-5) g/dL Vitamin B12 (211-911) pg/mL
[2018-08-05] MEDS: SODIUM CHLORIDE FLUSH SYRINGE 10 ML IV SCH (21:57)
[2018-08-05] MEDS: APRESOLINE IV PRN (21:59)
[2018-08-06] MEDS: LASIX IV SCH ×2 (06:10→18:11)
[2018-08-06 06:37] LABS: Calcium 8.8 mg/dL (8.4-10.2)
--- NOTE | 2018-08-06 08:20 | Event Note ---
Date: 08/06/18 [id number]
[2018-08-06] MEDS: HumaLOG SUB-Q SCH ×5 (08:27→22:14)
--- NOTE | 2018-08-06 08:33 | Progress Note ---
Assessment and Plan 1. Acute kidney injury: Likely the STEVIE is related to proeinuria / nephrotic syndrome. Renal US ordered. Monitor renal function. Avoid nephrotoxic agents. Meds dosage based on GFR. 2. Suspected Nephrotic syndrome: Urine protein creatinine ratio 3.12 Likely Minimal change or FSGS. Unlikely Nephritis. NUBIA, ANCA, C3, C4 and SPEP results pending. 3. FEN: Volume overload, IV Lasix. Monitor lytes. 4. HFpEF: Followed by Cards. 5. R breast mass: Seen by Heme-Onc. 6. Anemia: POA. Subjective Date of service: 08/06/18 Interval history: Patient was seen and examined at the bedside. Objective - Vital Signs Vital signs: Vital Signs - 12hr 08/05/18 08/05/18 08/05/18 20:35 21:02 21:59 Temperature 98.3 F Pulse Rate 95 H 104 H Pulse Rate [ 86 Throughout] Respiratory 16 Rate Respiratory 20 Rate [ Throughout] Blood Pressure 168/74 168/74 Blood Pressure [Left] O2 Sat by Pulse 98 97 Oximetry 08/05/18 08/06/18 08/06/18 23:52 00:00 04:00 Temperature 97.7 F Pulse Rate 102 H 101 H 85 Pulse Rate [ Throughout] Respiratory 18 24 Rate Respiratory Rate [ Throughout] Blood Pressure 150/80 Blood Pressure [Left] O2 Sat by Pulse 98 100 Oximetry 08/06/18 08/06/18 08/06/18 04:10 07:14 07:30 Temperature 97.1 F L 97.5 F L 97.6 F Pulse Rate 89 95 H Pulse Rate [ Throughout] Respiratory 20 20 20 Rate Respiratory Rate [ Throughout] Blood Pressure 133/67 143/75 Blood Pressure 143/75 [Left] O2 Sat by Pulse 98 100 Oximetry 08/06/18 08:24 Temperature Pulse Rate 94 H Pulse Rate [ Throughout] Respiratory Rate Respiratory Rate [ Throughout] Blood Pressure Blood Pressure [Left] O2 Sat by Pulse Oximetry - General Appearance General appearance: well-developed, well-nourished, appears stated age, obese, other (not in distress) EENT: ATNC, PERRL, mucous membranes moist, hearing intact, vision intact Neck: supple Respiratory: Present: Clear to Ascultation Cardiology: regular, S1S2, no murmurs Gastrointestinal: normoactive bowel sounds, no tenderness, no distended, obese Integumentary: no rash, warm and dry Neurologic: no focal deficit, no asterixis, alert and oriented x3 Musculoskeletal: other (2+ edema of both LEs noted) Psychiatric: cooperative - Lab 08/05/18 05:15 08/06/18 05:39 Most recent lab results Calcium 8.8 mg/dL (8.4-10.2) 08/06/18 05:39 Phosphorus 3.90 mg/dL (2.5-4.5) 08/06/18 05:39 Magnesium 1.60 mg/dL (1.7-2.3) L 08/06/18 05:39 Medications & Allergies - Medications Allergies/Adverse Reactions: Allergies No Known Allergies Allergy (Unverified 08/04/18 12:53) Home Medications: Home Medications Medication Instructions Recorded Confirmed Last Taken Type No Known Home Medications [No 08/04/18 08/04/18 Unknown History Reported Home Medications] Active Medications: Generic Name Dose Route Start Last Admin Trade Name Freq PRN Reason Stop Dose Admin Acetaminophen 650 mg 08/04/18 23:08 Tylenol PO Q4H PRN Pain MILD(1-3)/Fever >100.5/GANT Albuterol/Ipratropium 1 ampul 08/05/18 14:00 08/05/18 21:00 Duoneb *Not For Prn Use* IH 1 ampul TIDRT [facility] Administration Amlodipine Besylate 10 mg 08/05/18 10:00 08/05/18 10:51 Norvasc PO 10 mg QDAY [facility] Administration Famotidine 20 mg 08/05/18 10:00 08/05/18 22:00 Pepcid PO 20 mg BID [facility] Administration Furosemide 40 mg 08/05/18 06:00 08/06/18 06:10 Lasix IV 40 mg 0600,1800 [facility] Administration Hydralazine HCl 10 mg 08/04/18 23:10 08/05/18 21:59 Apresoline IV 10 mg Q3H PRN Administration Blood Pressure Ibuprofen 600 mg 08/04/18 23:08 Motrin PO Q6H PRN Pain, Mild (1-3) Insulin Human Lispro 0 unit 08/05/18 07:30 08/05/18 21:58 Humalog SUB-Q 3 unit ACHS [facility] Administration Protocol Losartan Potassium 100 mg 08/04/18 23:12 08/05/18 10:51 Cozaar PO 100 mg QDAY [facility] Administration Morphine Sulfate 2 mg 08/04/18 23:08 Morphine IV Q4H PRN Pain, Moderate (4-6) Ondansetron HCl 4 mg 08/04/18 23:08 Zofran IV Q8H PRN Nausea And Vomiting Potassium Chloride 20 meq 08/04/18 23:45 08/05/18 21:59 K-Dur PO 20 meq Q12HR [facility] Administration Sodium Chloride 10 ml 08/05/18 10:00 08/05/18 21:57 Sodium Chloride Flush Syringe 10 Ml IV 10 ml BID [facility] Administration Sodium Chloride 10 ml 08/04/18 23:08 08/06/18 06:11 Sodium Chloride Flush Syringe 10 Ml IV 10 ml PRN PRN Administration LINE FLUSH
[2018-08-06] MEDS: DUONEB *Not for PRN Use IH SCH ×3 (08:34→20:41)
[2018-08-06] MEDS ORDERED: MAGNESIUM SULFATE 2GM/50ML 2 GM/50 ML BAG IV ONE (09:30)
--- NOTE | 2018-08-06 10:27 | Progress Note ---
Assessment and Plan Fluid overload Heart failure with a preserved ejection fraction 60-65% by echo 04/2018 at [facility] Bilateral pleural effusion Acute renal failure Diabetes Hypertension Hx of Right Breast mass Anemia Noncompliant with medications and follow up Recommendations: Diuretic therapy as per nephrology. We will obtain an echocardiogram for LVEF reassessment. Subjective Date of service: 08/06/18 Interval history: Patient appears comfortable. She reports her breathing is better. Objective Vital Signs Temp Pulse Pulse Pulse Resp Resp Resp 08/06/18 08:46 97 H 20 08/06/18 08:40 08/06/18 08:34 97 H 20 08/06/18 08:24 94 H 08/06/18 07:30 97.6 F 95 H 20 08/06/18 07:14 97.5 F L 20 08/06/18 04:10 97.1 F L 89 20 08/06/18 04:00 85 08/06/18 00:00 101 H 24 08/05/18 23:52 97.7 F 102 H 18 08/05/18 21:59 104 H 08/05/18 21:02 86 20 08/05/18 20:35 98.3 F 95 H 16 08/05/18 20:00 96 H 08/05/18 17:53 08/05/18 14:00 93 H 89 18 18 08/05/18 12:09 107 H 08/05/18 11:53 BP BP Pulse Ox 08/06/18 08:46 08/06/18 08:40 97 08/06/18 08:34 08/06/18 08:24 08/06/18 07:30 143/75 100 08/06/18 07:14 143/75 08/06/18 04:10 133/67 98 08/06/18 04:00 08/06/18 00:00 100 08/05/18 23:52 150/80 98 08/05/18 21:59 168/74 08/05/18 21:02 97 08/05/18 20:35 168/74 98 08/05/18 20:00 08/05/18 17:53 143/70 08/05/18 14:00 08/05/18 12:09 160/72 94 08/05/18 11:53 99 - Physical Examination General: No Apparent Distress HEENT: Positive: PERRL Neck: Positive: trachea midline Cardiac: Positive: Reg Rate and Rhythm Lungs: Positive: Decreased Breath Sounds Neuro: Positive: Grossly Intact Extremities: Present: edema - Labs and Meds Comprehensive Metabolic Panel 08/06/18 Range/Units 05:39 Sodium 144 (137-145) mmol/L Potassium 4.9 (3.6-5.0) mmol/L Chloride 110.6 H (98-107) mmol/L Carbon Dioxide 24 (22-30) mmol/L BUN 29 H (7-17) mg/dL Creatinine 1.5 H (0.7-1.2) mg/dL Glucose 140 H (65-100) mg/dL Calcium 8.8 (8.4-10.2) mg/dL - Imaging and Cardiology EKG: report reviewed (sinus tachycardia probable left ventricular enlargement and left atrial enlargement)
[2018-08-06] MEDS: COZAAR PO SCH (12:27)
[2018-08-06] MEDS: NORVASC PO SCH (12:28)
[2018-08-06] MEDS: PEPCID PO SCH ×2 (12:28→21:42)
[2018-08-06] MEDS: SODIUM CHLORIDE FLUSH SYRINGE 10 ML IV SCH ×3 (12:34→21:42)
--- NOTE | 2018-08-06 13:35 | Cat Scan Report ---
PROCEDURE: CT CHEST WO CON TECHNIQUE: CT of the chest performed. No IV contrast administered. Axial images and coronal and sagit jeet reformatted images were obtained. HISTORY: rt breast mass COMPARISON: None FINDINGS: There is marked generalized edema. There is a nonspecific retroareolar masslike area in the right sandoval ast region measuring about 6 cm. There is overlying skin thickening. There are moderate to large pleural effusions. There is no abnormal mediastinal or hilar mass seen. There is peripheral interstitial thickening in visualized lungs. There is mild emphysema in the apice s. There is dependent/compressive atelectasis posteriorly in both lungs, left more than right. IMPRESSION: Marked generalized edema. Right retroareolar 6 cm masslike area and overlying skin thickening. Bilateral moderate to large pleural effusions with adjacent compressive/dependent atelectasis, left m ore than right. Diffuse interstitial thickening could be interstitial edema and/or chronic disease. Mild emphysema in the upper lobes. This document is electronically signed by Victoria Parisi MD., Aug 06 2018 01:33:52 PM ET
[2018-08-06 13:57] LABS: Creatinine,Urine 100.4 mg/dL (0.1-20.0)
[2018-08-06 14:10] LABS: Protein/Creatinine Ratio,Urine 3.12
--- NOTE | 2018-08-06 15:02 | Progress Note ---
Assessment and Plan Acute hypoxic respiratory failure, present on admission - Due to acute exacerbation of CHF and bilateral pleural effusion - Continue supplemental O2 and Herman as tolerated - Continue to treat underlying cause / Hypertensive emergency BP improving Patient given multiple doses of IV hydralazine to bring the blood pressure down Losartan Coreg and amlodipine added, IV hydralazine every 3 hours when necessary /Acute exacerbation of CHF (congestive heart failure) with preserved EF Patient initiated on IV Lasix and potassium Echocardiogram results pending, previous echo at [facility] showed EF was 55-60% Cardiology consult requested / Right breast mass, consulted oncology /b/l Pleural effusion, wait for CT chest result may need thracentesis /Type 2 diabetes mellitus Check hemoglobin A1c SSI Coverage for now / STEVIE (acute kidney injury) Patient on Lasix Nephrology consult requested because the Lasix can increase the creatinine /Anemia Anemia workup ordered / DVT prophylaxis On Lovenox and GI prophylaxis Brief History: 68-year-old woman with a history of Diabetes, Hypertension and a Right Breast Mass for several years who presents to the hospital with shortness of breath and bilateral lower extremity edema with huge breast mass. Chest x-ray reveals bilateral pleural effusion, with at least moderate severity effusion on the left. The lung crooks show mild interstitial edema. EKG is normal sinus rhythm with no acute changes, essentially normal ECG. Radiological data: EKG: report reviewed (sinus tachycardia probable left ventricular enlargement and left atrial enlargement) Chest x-ray: Mild CHF. Hospitalist Physical exam: GENERAL: well-developed and well-nourished lying on bed appeared to be in no discomfort. HEENT: Normocephalic. Atraumatic. No conjunctival congestion or icterus. Patient has moist mucous membranes. NECK: Supple. Trachea midline. CHEST/LUNGS: Clear to auscultated bilaterally, breathing nonlabored. No wheezes crackles or rhonchi. right sided breast mass HEART/CARDIOVASCULAR: Regular in rate and rhythm. S1 and S2 positive. ABDOMEN: Abdomen is soft, nontender. Patient has normal bowel sounds. SKIN: There is no rash. Warm and dry. NEURO: No focal motor deficit. Follows command. MUSCULOSKELETAL: No joint effusion or tenderness. EXTRIMITY: No edema, no cyanosis or clubbing. PSYCH: Cooperative. Subjective Date of service: 08/06/18 Interval history: Patient seen and examined. Medical records and medication list reviewed. No acute event overnight noted by the RN. Patient c/o difficulty breathing on minimal exception. Patient is tolerating diet. Discussed plan of care at bedside with patient. states she has that breast mass for several years Objective - Constitutional Vitals: Vital Signs - 12hr 08/06/18 08/06/18 08/06/18 04:00 04:10 07:14 Temperature 97.1 F L 97.5 F L Pulse Rate 85 89 Pulse Rate [ Throughout] Respiratory 20 20 Rate Respiratory Rate [ Throughout] Blood Pressure 133/67 143/75 Blood Pressure [Left] O2 Sat by Pulse 98 Oximetry 08/06/18 08/06/18 08/06/18 07:30 08:24 08:34 Temperature 97.6 F Pulse Rate 95 H 94 H Pulse Rate [ 97 H Throughout] Respiratory 20 Rate Respiratory 20 Rate [ Throughout] Blood Pressure Blood Pressure 143/75 [Left] O2 Sat by Pulse 100 Oximetry 08/06/18 08/06/18 08/06/18 08:40 08:46 14:00 Temperature Pulse Rate Pulse Rate [ 97 H 95 H Throughout] Respiratory Rate Respiratory 20 20 Rate [ Throughout] Blood Pressure Blood Pressure [Left] O2 Sat by Pulse 97 Oximetry 08/06/18 14:09 Temperature Pulse Rate Pulse Rate [ 96 H Throughout] Respiratory Rate Respiratory 20 Rate [ Throughout] Blood Pressure Blood Pressure [Left] O2 Sat by Pulse Oximetry - Labs CBC & Chem 7: 08/05/18 05:15 08/07/18 08:30 Labs: Abnormal lab results 08/05/18 08/06/18 08/06/18 Range/Units 21:30 05:39 07:20 Chloride 110.6 H (98-107) mmol/L BUN 29 H (7-17) mg/dL Creatinine 1.5 H (0.7-1.2) mg/dL Glucose 140 H (65-100) mg/dL POC Glucose 205 H 133 H (70-105) Magnesium 1.60 L (1.7-2.3) mg/dL Urine Creatinine (0.1-20.0) mg/dL Urine Total Protein (5-11.8) mg/dL 08/06/18 08/06/18 Range/Units 12:25 13:25 Chloride (98-107) mmol/L BUN (7-17) mg/dL Creatinine (0.7-1.2) mg/dL Glucose (65-100) mg/dL POC Glucose 286 H (70-105) Magnesium (1.7-2.3) mg/dL Urine Creatinine 100.4 H (0.1-20.0) mg/dL Urine Total Protein 313 H (5-11.8) mg/dL
--- NOTE | 2018-08-07 00:20 | Consultation ---
REFERRED BY: Africa Hunter MD REASON FOR CONSULTATION: Right breast mass and anemia. HISTORY OF PRESENT ILLNESS: I saw the patient, a 68-year-old female in the medical floor. The patient has a history of congestive heart failure, hypertension, diabetes. She came to the hospital because of shortness of breath and on minimal exertion. She is not on any medication. No chest pain. She was also found to be anemic, low albumin, renal impairment. She has been seen by Nephrology team. I have been asked to evaluate because of right breast mass and anemia. At this time, the patient is on CPAP. She says she lives with her sons. REVIEW OF SYSTEMS: No headache, no chest pain, no abdominal pain, no vomiting, no diarrhea. PAST MEDICAL HISTORY: As above. SURGICAL HISTORY: Not applicable. SOCIAL HISTORY: Ex-smoker. FAMILY HISTORY: Hypertension. ALLERGIES: None. HOME MEDICATIONS: None. PHYSICAL EXAMINATION: VITAL SIGNS: Temperature 97, pulse 95, respirations 20, blood pressure 143/75. HEENT: Pallor present. No icterus. NECK: No neck lymph nodes. CHEST: Right breast mass present. HEART: S1, S2. LUNGS: Decreased air entry. ABDOMEN: Soft. EXTREMITIES: Leg edema present. NEUROLOGIC: Alert, awake. LABORATORY DATA: White cell 9.8, hemoglobin 8.4, MCV 79, platelets 396. Potassium 4.9, creatinine 1.5, calcium 8.8. Serum iron 17. B12 more than 2000. Bilirubin 0.3. Chest x-ray was done. ASSESSMENT: 1. Right breast mass, likely neoplastic. 2. Short of breath. 3. Low albumin. 4. Anemia. Serum iron is low. B12 is normal. We will follow. 5. Diabetes. 6. Hypertension. 7. I will follow the patient during inpatient stay and then in the clinic. We will look into radiology of the chest, abdomen and pelvis. I discussed with IR to see if biopsy can be done. JOB# [id number] ARTEMIO/NTS
[2018-08-07] MEDS: LASIX IV SCH ×2 (06:48→18:35)
[2018-08-07] MEDS: DUONEB *Not for PRN Use IH SCH ×3 (07:19→19:18)
--- NOTE | 2018-08-07 07:41 | Hem/Onc Progress Note ---
Assessment and Plan 1. Right breast mass, likely neoplastic. 2. Short of breath. 3. Low albumin. 4. Anemia. Serum iron is low. B12 is normal. We will follow. 5. Diabetes. 6. Hypertension. 7. I will follow the patient during inpatient stay and then in the clinic. radiology of the chest, abdomen and pelvis. I on 08/06 I had discussed with IR to see if biopsy can be done. CT chest - non contrast - breast mass at [facility] in Mar 2018 - CA 27- was high IR following low albumin - Patient Problems (1) Breast mass in female Current Visit: Yes Status: Acute Subjective Date of service: 08/07/18 Principal diagnosis: anemia and breast mass Interval history: pt had Ct chest Objective - Constitutional Vitals: Last Vital Signs Temp 98.0 F 08/07/18 07:19 Pulse 94 H 08/07/18 07:19 Resp 20 08/07/18 07:19 BP 145/76 08/07/18 07:19 Pulse Ox 100 08/07/18 07:19 Pain Intensity (0-10): denies any pain General appearance: no acute distress Performance status: 3-limited selfcare - EENT Eyes: PERRL, EOM intact ENT: hearing intact Lymph node exam: negative cervical - Neck Neck: supple - Respiratory Respiratory effort: Positive: other (on o2) - Breasts Breasts: right: masses - Cardiovascular Heart Sounds: Present: S1 & S2 Extremity abnormal: edema - Gastrointestinal General gastrointestinal: Present: soft, non-tender Rectal Exam: deferred - Genitourinary Female genitourinary: Present: deferred - Integumentary Integumentary: warm - Musculoskeletal Musculoskeletal: strength equal bilaterally - Neurologic Neurologic: moves all extremities - Labs Lab Results: Laboratory Results - last 24 hr 08/06/18 08/06/18 08/06/18 07:20 12:25 13:25 POC Glucose 133 H 286 H Urine Creatinine 100.4 H Protein/Creatinin Ratio 3.12 Urine Sodium 75 Urine Total Protein 313 H 08/06/18 08/06/18 16:22 22:03 POC Glucose 261 H 293 H Urine Creatinine Protein/Creatinin Ratio Urine Sodium Urine Total Protein Medications & Allergies - Medications Allergies/Adverse Reactions: Allergies No Known Allergies Allergy (Unverified 08/04/18 12:53) Home Medications: Home Medications Medication Instructions Recorded Confirmed Last Taken Type RX: No Known Home Medications [No 08/04/18 08/04/18 Unknown History Reported Home Medications] Active Medications: Generic Name Dose Route Start Last Admin Trade Name Melani PRN Reason Stop Dose Admin Acetaminophen 650 mg 08/04/18 23:08 Tylenol PO Q4H PRN Pain MILD(1-3)/Fever >100.5/GANT Albuterol/Ipratropium 1 ampul 08/05/18 14:00 08/07/18 07:19 Duoneb *Not For Prn Use* IH 1 ampul TIDRT MARLI Administration Amlodipine Besylate 10 mg 08/05/18 10:00 08/06/18 12:28 Norvasc PO 10 mg QDAY MARLI Administration Famotidine 20 mg 08/05/18 10:00 08/06/18 21:42 Pepcid PO 20 mg BID MARLI Administration Furosemide 40 mg 08/05/18 06:00 08/07/18 06:48 Lasix IV 40 mg 0600,1800 MARLI Administration Hydralazine HCl 10 mg 08/04/18 23:10 08/05/18 21:59 Apresoline IV 10 mg Q3H PRN Administration Blood Pressure Insulin Human Lispro 0 unit 08/05/18 07:30 08/06/18 22:14 Humalog SUB-Q 4 unit ACHS MARLI Administration Protocol Losartan Potassium 100 mg 08/04/18 23:12 08/06/18 12:27 Cozaar PO 100 mg QDAY MARLI Administration Morphine Sulfate 2 mg 08/04/18 23:08 Morphine IV Q4H PRN Pain, Moderate (4-6) Ondansetron HCl 4 mg 08/04/18 23:08 Zofran IV Q8H PRN Nausea And Vomiting Sodium Chloride 10 ml 08/05/18 10:00 08/06/18 21:42 Sodium Chloride Flush Syringe 10 Ml IV 10 ml BID MARLI Administration Sodium Chloride 10 ml 08/04/18 23:08 08/06/18 06:11 Sodium Chloride Flush Syringe 10 Ml IV 10 ml PRN PRN Administration LINE FLUSH
--- NOTE | 2018-08-07 08:32 | Ultrasound Report ---
ULTRASOUND RENAL BILATERAL HISTORY: Acute renal failure. COMPARISON: None at this facility. TECHNIQUE: transabdominal ultrasound with color Doppler interrogation. FINDINGS: The right kidney measures 12.4 x 5.1 x 6.5cm. Right renal cortex: 2.1cm. The left kidney measures 9.4 x 4.3 x 6.3cm. Left renal cortex: 1.8cm. The left kidney is poorly visualized secondary to overlying bowel gas. The left kidney is grossly within normal limits. There is good visualization of the right kidney. A 3.6 x 2.8 cm cyst is noted in the midline right kidney. The renal parenchyma appears slightly echogenic consistent with nonspecific renal parenchymal disease. No mass, calculus or hydronephrosis is identified. The bladder is mostly empty and poorly evaluated. Bilateral pleural effusions are partially imaged. IMPRESSION: Slightly echogenic kidneys consistent with nonspecific renal parenchymal disease. Right renal cyst. Bilateral pleural effusions.
[2018-08-07] MEDS: HumaLOG SUB-Q SCH ×4 (08:46→22:22)
[2018-08-07 09:16] LABS: Calcium 8.5 mg/dL (8.4-10.2)
[2018-08-07] MEDS ORDERED: KIONEX PO ONE (10:03)
--- NOTE | 2018-08-07 10:03 | Progress Note ---
Assessment and Plan 1. Acute kidney injury: Likely the STEVIE is related to proeinuria / nephrotic syndrome. Renal US was negative for [place]. Gradual increase in the creatinine level noted. May have stop Losartan if creatinine continue to increase. Monitor renal function. Avoid nephrotoxic agents. Meds dosage based on GFR. 2. Suspected Nephrotic syndrome: Urine protein creatinine ratio 3.12 Likely Minimal change or FSGS. Unlikely Nephritis. NUBIA, ANCA, C3, C4 and SPEP results pending. 3. FEN: Hyperkalemia, Kayexalate ordered. Volume overload, IV Lasix. Monitor lytes. 4. HFpEF: Followed by Cards. 5. R breast mass: Seen by Heme-Onc. 6. Pleural effusion: S/p thoracentesis. 7. Anemia: POA. Subjective Date of service: 08/07/18 Principal diagnosis: anemia and breast mass Interval history: Patient was seen and examined at the bedside. Objective - Vital Signs Vital signs: Vital Signs - 12hr 08/07/18 08/07/18 03:52 07:19 Temperature 98.3 F 98.0 F Pulse Rate 95 H 94 H Respiratory 20 20 Rate Blood Pressure 136/67 145/76 O2 Sat by Pulse 100 100 Oximetry - General Appearance General appearance: well-developed, well-nourished, appears stated age, obese, other (not in distress) EENT: ATNC, PERRL, hearing intact, vision intact Neck: supple Respiratory: Present: Clear to Ascultation Cardiology: regular, S1S2, no murmurs Gastrointestinal: normoactive bowel sounds, no tenderness, no distended Integumentary: no rash, warm and dry Neurologic: no focal deficit, no asterixis, alert and oriented x3 Musculoskeletal: other (1+ edema of both LEs noted) Psychiatric: cooperative - Lab 08/05/18 05:15 08/07/18 08:30 Most recent lab results Calcium 8.5 mg/dL (8.4-10.2) 08/07/18 08:30 Phosphorus 3.90 mg/dL (2.5-4.5) 08/06/18 05:39 Magnesium 1.80 mg/dL (1.7-2.3) 08/07/18 08:30 100.4 mg/dL (0.1-20.0) H 08/06/18 13:25 75 mmol/L 08/06/18 13:25 313 mg/dL (5-11.8) H 08/06/18 13:25 Medications & Allergies - Medications Allergies/Adverse Reactions: Allergies No Known Allergies Allergy (Unverified 08/04/18 12:53) Home Medications: Home Medications Medication Instructions Recorded Confirmed Last Taken Type No Known Home Medications [No 08/04/18 08/04/18 Unknown History Reported Home Medications] Active Medications: Generic Name Dose Route Start Last Admin Trade Name Freq PRN Reason Stop Dose Admin Acetaminophen 650 mg 08/04/18 23:08 Tylenol PO Q4H PRN Pain MILD(1-3)/Fever >100.5/GANT Albuterol/Ipratropium 1 ampul 08/05/18 14:00 08/07/18 07:19 Duoneb *Not For Prn Use* IH 1 ampul TIDRT MARLI Administration Amlodipine Besylate 10 mg 08/05/18 10:00 08/06/18 12:28 Norvasc PO 10 mg QDAY MARLI Administration Famotidine 20 mg 08/05/18 10:00 08/06/18 21:42 Pepcid PO 20 mg BID MARLI Administration Furosemide 40 mg 08/05/18 06:00 08/07/18 06:48 Lasix IV 40 mg 0600,1800 MARLI Administration Hydralazine HCl 10 mg 08/04/18 23:10 08/05/18 21:59 Apresoline IV 10 mg Q3H PRN Administration Blood Pressure Insulin Human Lispro 0 unit 08/05/18 07:30 08/06/18 22:14 Humalog SUB-Q 4 unit ACHS MARLI Administration Protocol Losartan Potassium 100 mg 08/04/18 23:12 08/06/18 12:27 Cozaar PO 100 mg QDAY MARLI Administration Morphine Sulfate 2 mg 08/04/18 23:08 Morphine IV Q4H PRN Pain, Moderate (4-6) Ondansetron HCl 4 mg 08/04/18 23:08 Zofran IV Q8H PRN Nausea And Vomiting Sodium Chloride 10 ml 08/05/18 10:00 08/06/18 21:42 Sodium Chloride Flush Syringe 10 Ml IV 10 ml BID MARLI Administration Sodium Chloride 10 ml 08/04/18 23:08 08/06/18 06:11 Sodium Chloride Flush Syringe 10 Ml IV 10 ml PRN PRN Administration LINE FLUSH
--- NOTE | 2018-08-07 10:42 | Progress Note ---
Assessment and Plan Fluid overload Heart failure with a preserved ejection fraction 60-65% by echo 04/2018 at [facility] Bilateral pleural effusion Acute renal failure Diabetes Hypertension Hx of Right Breast mass Anemia Noncompliant with medications and follow up Normal LVEF 60-65% by echocardiogram this admission. Recommendations: Advised fluid/sodium restriction. Diuretic therapy as per nephrology. Pulmonary consultation for left pleural effusion. Subjective Date of service: 08/07/18 Principal diagnosis: anemia and breast mass Interval history: Patient appears comfortable. Venturi mask is in place. Objective Vital Signs Temp Pulse Pulse Resp Resp BP BP 08/07/18 07:19 98.0 F 94 H 20 145/76 08/07/18 03:52 98.3 F 95 H 20 136/67 08/06/18 20:55 107 H 107 H 20 08/06/18 20:44 08/06/18 20:43 100 H 20 08/06/18 19:44 97.6 F 104 H 20 156/80 08/06/18 15:16 97.3 F L 18 136/69 08/06/18 15:00 97.3 F L 104 H 18 136/69 08/06/18 14:09 96 H 20 08/06/18 14:00 95 H 20 08/06/18 12:04 97.3 F L 18 144/79 Pulse Ox 08/07/18 07:19 100 08/07/18 03:52 100 08/06/18 20:55 08/06/18 20:44 97 08/06/18 20:43 08/06/18 19:44 96 08/06/18 15:16 08/06/18 15:00 98 08/06/18 14:09 08/06/18 14:00 08/06/18 12:04 - Physical Examination General: No Apparent Distress HEENT: Positive: PERRL Neck: Positive: trachea midline Cardiac: Positive: Reg Rate and Rhythm Lungs: Positive: Decreased Breath Sounds, Wheezes Neuro: Positive: Grossly Intact Extremities: Present: edema - Labs and Meds Comprehensive Metabolic Panel 08/07/18 Range/Units 08:30 Sodium 142 (137-145) mmol/L Potassium 5.2 H (3.6-5.0) mmol/L Chloride 109.7 H (98-107) mmol/L Carbon Dioxide 24 (22-30) mmol/L BUN 30 H (7-17) mg/dL Creatinine 1.6 H (0.7-1.2) mg/dL Glucose 162 H (65-100) mg/dL Calcium 8.5 (8.4-10.2) mg/dL
[2018-08-07] MEDS: COZAAR PO SCH (11:02)
[2018-08-07] MEDS: NORVASC PO SCH (11:03)
[2018-08-07] MEDS: PEPCID PO SCH ×2 (11:03→22:21)
[2018-08-07] MEDS: SODIUM CHLORIDE FLUSH SYRINGE 10 ML IV SCH ×2 (11:03→22:21)
--- NOTE | 2018-08-07 13:17 | Ultrasound Report ---
ULTRASOUND THORACENTESIS History: Left pleural effusion Description of procedure: Informed consent was obtained. Sterile technique was utilized. 1% lidocaine for skin anesthesia. Using ultrasound guidance, a 5 Thai centesis needle was advanced into the left pleural space. There was spontaneous return of blood-tinged pink fluid. 1400 cc of fluid was aspirated. 120 cc of fluid was sent to the lab for analysis. No complications. Impression: Successful ultrasound-guided left thoracentesis.
--- NOTE | 2018-08-07 14:03 | Procedure Note ---
Date of procedure: 08/07/18 Pre-op diagnosis: left pleural effusion Post-op diagnosis: same Procedure: US thoracentesis,left Findings: large lft pl effusion Anesthesia: local Surgeon: LEROY QIULES Estimated blood loss: none Pathology: list (120cc) Specimen disposition: to lab Condition: stable Disposition: floor
[2018-08-07 14:36] LABS: Total Cells Counted 100 /mm3
--- NOTE | 2018-08-07 14:51 | XRay Report ---
AP CHEST: HISTORY: Short of breath Recent ultrasound-guided left thoracentesis was performed. Near complete evacuation of the left pleural fluid is demonstrated. No pneumothorax. Mild cardiomegaly and pulmonary venous congestion are identified. The bony structures are grossly intact. IMPRESSION: No evidence for pneumothorax.
--- NOTE | 2018-08-07 16:10 | Progress Note ---
Assessment and Plan Acute hypoxic respiratory failure, present on admission - Due to acute exacerbation of CHF and bilateral pleural effusion - Continue supplemental O2 and Herman as tolerated - Continue to treat underlying cause - We'll consult pulmonary / Hypertensive emergency BP improving Patient given multiple doses of IV hydralazine to bring the blood pressure down Losartan Coreg and amlodipine added, IV hydralazine every 3 hours when necessary /Acute exacerbation of CHF (congestive heart failure) with preserved EF Patient initiated on IV Lasix and potassium Echocardiogram during this admission and previous echo at [facility] showed EF was 60-65% Cardiology consult requested / Right breast mass, consulted oncology - CT scan showed a right breast mass involving skin - Planned for biopsy, I am consulted /b/l Pleural effusion, - Moderate to severe pleural effusion bilaterally - Status post left-sided thoracentesis today drained 1.4 L of fluid - Planned for right-sided thoracentesis tomorrow /Type 2 diabetes mellitus hemoglobin A1c 10.8 SSI Coverage for now / STEVIE (acute kidney injury) Patient on Lasix Nephrology consult requested because the Lasix can increase the creatinine /Anemia of chronic disease Anemia workup ordered / DVT prophylaxis On Lovenox and GI prophylaxis Brief History: 68-year-old woman with a history of Diabetes, Hypertension and a Right Breast Mass for several years who presents to the hospital with shortness of breath and bilateral lower extremity edema with huge breast mass. Chest x-ray reveals bilateral pleural effusion, with at least moderate severity effusion on the le ft. The lung crooks show mild interstitial edema. EKG is normal sinus rhythm with no acute changes, essentially normal ECG. Radiological data: EKG: report reviewed (sinus tachycardia probable left ventricular enlargement and left atrial enlargement) Chest x-ray: Mild CHF. CT chest: Marked generalized edema. Right retroareolar 6 cm masslike area and overlying skin thickening. Bilateral moderate to large pleural effusions with adjacent compressive/dependent atelectasis, left more than right. Diffuse interstitial thickening could be interstitial edema and/or chronic disease. Mild emphysema in the upper lobes. Hospitalist Physical exam: GENERAL: well-developed and well-nourished lying on bed appeared to be in no discomfort. HEENT: Normocephalic. Atraumatic. No conjunctival congestion or icterus. Patient has moist mucous membranes. NECK: Supple. Trachea midline. CHEST/LUNGS: Clear to auscultated bilaterally, breathing nonlabored. No wheezes crackles or rhonchi. right sided breast mass HEART/CARDIOVASCULAR: Regular in rate and rhythm. S1 and S2 positive. ABDOMEN: Abdomen is soft, nontender. Patient has normal bowel sounds. SKIN: There is no rash. Warm and dry. NEURO: No focal motor deficit. Follows command. MUSCULOSKELETAL: No joint effusion or tenderness. EXTRIMITY: No edema, no cyanosis or clubbing. PSYCH: Cooperative. Subjective Date of service: 08/07/18 Principal diagnosis: anemia and breast mass Interval history: Patient seen and examined. Medical records and medication list reviewed. No acute event overnight noted by the RN. Patient c/o difficulty breathing on minimal exception. Patient is tolerating diet. Patient is still on 10 L oxygen Status post left-sided thoracentesis today Objective - Constitutional Vitals: Vital Signs - 12hr 08/07/18 08/07/18 08/07/18 07:19 07:20 10:56 Temperature 98.0 F 98.2 F Pulse Rate 94 H 96 H Pulse Rate [ 91 H 94 H Anterior Bilateral Throughout] Respiratory 20 20 Rate Respiratory 20 20 Rate [Anterior Bilateral Throughout] Blood Pressure 145/76 157/73 O2 Sat by Pulse 100 100 Oximetry 08/07/18 08/07/18 13:32 13:42 Temperature Pulse Rate Pulse Rate [ 97 H 98 H Anterior Bilateral Throughout] Respiratory Rate Respiratory 20 20 Rate [Anterior Bilateral Throughout] Blood Pressure O2 Sat by Pulse Oximetry - Labs CBC & Chem 7: 08/08/18 05:18 08/08/18 05:18 Labs: Abnormal lab results 08/06/18 08/06/18 08/07/18 Range/Units 16:22 22:03 07:21 Potassium (3.6-5.0) mmol/L Chloride (98-107) mmol/L BUN (7-17) mg/dL Creatinine (0.7-1.2) mg/dL Glucose (65-100) mg/dL POC Glucose 261 H 293 H 180 H (70-105) 08/07/18 08/07/18 Range/Units 08:30 10:59 Potassium 5.2 H (3.6-5.0) mmol/L Chloride 109.7 H (98-107) mmol/L BUN 30 H (7-17) mg/dL Creatinine 1.6 H (0.7-1.2) mg/dL Glucose 162 H (65-100) mg/dL POC Glucose 191 H (70-105)
[2018-08-08 06:01] LABS: Basophils % (Auto) 0.5 % (0.0-1.8); Eosinophils # (Auto) 0.3 K/mm3 (0.0-0.4); Hematocrit 22.8 % (30.3-42.9); Hemoglobin 7.3 gm/dl (10.1-14.3); Lymphocytes # (Auto) 1.8 K/mm3 (1.2-5.4); Lymphocytes % (Auto) 21.8 % (13.4-35.0); Mean Corpuscular HGB Conc 32 % (30-34); Mean Corpuscular Volume 79 fl (79-97); Monocytes # (Auto) 0.8 K/mm3 (0.0-0.8); Monocytes % (Auto) 9.1 % (0.0-7.3); Platelet Count 358 K/mm3 (140-440); Red Blood Count 2.89 M/mm3 (3.65-5.03)
[2018-08-08 06:25] LABS: Calcium 8.1 mg/dL (8.4-10.2)
[2018-08-08] MEDS: LASIX IV SCH ×2 (06:39→18:24)
--- NOTE | 2018-08-08 07:45 | Hem/Onc Progress Note ---
Assessment and Plan 1. Right breast mass, likely neoplastic. 2. Short of breath. 3. Low albumin. 4. Anemia. Serum iron is low. B12 is normal. We will follow. 5. Diabetes. 6. Hypertension. 7. I will follow the patient during inpatient stay and then in the clinic. radiology of the chest, 8. renal impairement - nephrology following CT chest - non contrast - breast mass at [facility] in Mar 2018 - CA 27-29 was high IR following low albumin thoracentesis done - will await path iv iron trial - Patient Problems (1) Breast mass in female Current Visit: Yes Status: Acute Subjective Date of service: 08/08/18 Principal diagnosis: rt breast mass Interval history: thoracentesis Objective - Constitutional Vitals: Last Vital Signs Temp 97.2 F L 08/08/18 07:03 Pulse 89 08/08/18 07:03 Resp 18 08/08/18 07:03 BP 133/62 08/08/18 07:03 Pulse Ox 100 08/08/18 07:03 Pain Intensity (0-10): denies any pain General appearance: no acute distress Performance status: 4-completely disabled - EENT Eyes: EOM intact ENT: hearing intact, clear oral mucosa Lymph node exam: negative cervical - Neck Neck: supple, normal ROM - Respiratory Respiratory effort: Positive: other (on o2) Respiratory: bilateral: diminished - Breasts Breasts: right: masses - Cardiovascular Heart Sounds: Present: S1 & S2 Extremity abnormal: edema - Gastrointestinal General gastrointestinal: Present: soft, non-tender Rectal Exam: deferred - Genitourinary Female genitourinary: Present: deferred - Integumentary Integumentary: warm - Musculoskeletal Musculoskeletal: generalized weakness - Neurologic Neurologic: moves all extremities - Labs Lab Results: Laboratory Results - last 24 hr 08/05/18 08/07/18 08/07/18 00:35 07:21 08:30 WBC RBC Hgb Hct MCV MCH MCHC RDW Plt Count Lymph % (Auto) [place] % (Auto) Eos % (Auto) Baso % (Auto) Lymph # [place] # Eos # Baso # Seg Neutrophils % Seg Neutrophils # Sodium 142 Potassium 5.2 H Chloride 109.7 H Carbon Dioxide 24 Anion Gap 14 BUN 30 H Creatinine 1.6 H Estimated GFR 39 BUN/Creatinine Ratio 19 Glucose 162 H POC Glucose 180 H Calcium 8.5 Magnesium 1.80 RBC Folic Acid 981 Fluid Type Fluid Color Fluid Appearance Fluid WBC Fluid RBC Fluid Seg Neutrophils Fluid Lymphocytes Fluid Reactive Lymphs Fluid Monocytes Fluid Eosinophils Fluid Basophils 08/07/18 08/07/18 08/07/18 10:59 15:49 20:31 WBC RBC Hgb Hct MCV MCH MCHC RDW Plt Count Lymph % (Auto) [place] % (Auto) Eos % (Auto) Baso % (Auto) Lymph # [place] # Eos # Baso # Seg Neutrophils % Seg Neutrophils # Sodium Potassium Chloride Carbon Dioxide Anion Gap BUN Creatinine Estimated GFR BUN/Creatinine Ratio Glucose POC Glucose 191 H 267 H 238 H Calcium Magnesium RBC Folic Acid Fluid Type Fluid Color Fluid Appearance Fluid WBC Fluid RBC Fluid Seg Neutrophils Fluid Lymphocytes Fluid Reactive Lymphs Fluid Monocytes Fluid Eosinophils Fluid Basophils 08/07/18 08/08/18 08/08/18 Unknown 05:18 05:18 WBC 8.4 RBC 2.89 L Hgb 7.3 L Hct 22.8 L MCV 79 MCH 25 L MCHC 32 RDW 16.0 H Plt Count 358 Lymph % (Auto) 21.8 [place] % (Auto) 9.1 H Eos % (Auto) 4.0 Baso % (Auto) 0.5 Lymph # 1.8 [place] # 0.8 Eos # 0.3 Baso # 0.0 Seg Neutrophils % 64.6 Seg Neutrophils # 5.4 Sodium 143 Potassium 4.8 Chloride 110.4 H Carbon Dioxide 23 Anion Gap 14 BUN 31 H Creatinine 1.6 H Estimated GFR 39 BUN/Creatinine Ratio 19 Glucose 164 H POC Glucose Calcium 8.1 L Magnesium RBC Folic Acid Fluid Type Pleural Fluid Color [place] Fluid Appearance Hazy Fluid WBC 330 Fluid RBC 5650 Fluid Seg Neutrophils 20.0 Fluid Lymphocytes 44.0 Fluid Reactive Lymphs 0 Fluid Monocytes 36.0 Fluid Eosinophils 0 Fluid Basophils 0 Medications & Allergies - Medications Allergies/Adverse Reactions: Allergies No Known Allergies Allergy (Unverified 08/04/18 12:53) Home Medications: Home Medications Medication Instructions Recorded Confirmed Last Taken Type No Known Home Medications [No 08/04/18 08/04/18 Unknown History Reported Home Medications] Active Medications: Generic Name Dose Route Start Last Admin Trade Name Freq PRN Reason Stop Dose Admin Acetaminophen 650 mg 08/04/18 23:08 Tylenol PO Q4H PRN Pain MILD(1-3)/Fever >100.5/GANT Albuterol/Ipratropium 1 ampul 08/05/18 14:00 08/07/18 19:18 Duoneb *Not For Prn Use* IH 1 ampul TIDRT MARLI Administration Amlodipine Besylate 10 mg 08/05/18 10:00 08/07/18 11:03 Norvasc PO 10 mg QDAY MARLI Administration Famotidine 20 mg 08/05/18 10:00 08/07/18 22:21 Pepcid PO 20 mg BID MARLI Administration Furosemide 40 mg 08/05/18 06:00 08/08/18 06:39 Lasix IV 40 mg 0600,1800 MARLI Administration Hydralazine HCl 10 mg 08/04/18 23:10 08/05/18 21:59 Apresoline IV 10 mg Q3H PRN Administration Blood Pressure Insulin Human Lispro 0 unit 08/05/18 07:30 08/07/18 22:22 Humalog SUB-Q 3 unit ACHS MARLI Administration Protocol Losartan Potassium 100 mg 08/04/18 23:12 08/07/18 11:02 Cozaar PO 100 mg QDAY MARLI Administration Morphine Sulfate 2 mg 08/04/18 23:08 Morphine IV Q4H PRN Pain, Moderate (4-6) Ondansetron HCl 4 mg 08/04/18 23:08 Zofran IV Q8H PRN Nausea And Vomiting Sodium Chloride 10 ml 08/05/18 10:00 08/07/18 22:21 Sodium Chloride Flush Syringe 10 Ml IV 10 ml BID MARLI Administration Sodium Chloride 10 ml 08/04/18 23:08 08/06/18 06:11 Sodium Chloride Flush Syringe 10 Ml IV 10 ml PRN PRN Administration LINE FLUSH
[2018-08-08] MEDS: DUONEB *Not for PRN Use IH SCH ×3 (07:56→20:37)
[2018-08-08] MEDS: HumaLOG SUB-Q SCH ×4 (07:59→21:40)
[2018-08-08] MEDS ORDERED: FERRLECIT 125 MG in NACL 0.9% 100 ML IV ONE (09:30)
--- NOTE | 2018-08-08 09:56 | Progress Note ---
Assessment and Plan 1. Acute kidney injury: Likely the STEVIE is related to proeinuria / nephrotic syndrome. Renal US was negative for [place]. Creatinine level plateaued. Monitor renal function. Avoid nephrotoxic agents. Meds dosage based on GFR. 2. Suspected Nephrotic syndrome: Urine protein creatinine ratio 3.12 Likely Minimal change or FSGS. Unlikely Nephritis. NUBIA, ANCA, C3, C4 and SPEP results pending. 3. FEN: Hyperkalemia, improved. Volume overload, IV Lasix. Monitor lytes. 4. HFpEF: Followed by Cards. 5. R breast mass: Seen by Heme-Onc. 6. Pleural effusion: S/p thoracentesis. 7. Anemia: POA. Subjective Date of service: 08/08/18 Principal diagnosis: rt breast mass Interval history: Patient was seen and examined at the bedside. Doing ok. Objective - Vital Signs Vital signs: Vital Signs - 12hr 08/07/18 08/07/18 08/08/18 22:45 23:52 00:00 Temperature 98.0 F Pulse Rate 104 H 98 H Pulse Rate [ Anterior Bilateral Throughout] Pulse Rate [ 104 H Apical] Respiratory 18 18 26 H Rate Respiratory Rate [Anterior Bilateral Throughout] Blood Pressure 154/69 O2 Sat by Pulse 95 95 100 Oximetry 08/08/18 08/08/18 08/08/18 04:15 07:03 07:55 Temperature 98.0 F 97.2 F L Pulse Rate 92 H 89 Pulse Rate [ Anterior Bilateral Throughout] Pulse Rate [ Apical] Respiratory 18 18 Rate Respiratory Rate [Anterior Bilateral Throughout] Blood Pressure 138/69 133/62 O2 Sat by Pulse 100 100 100 Oximetry 08/08/18 08/08/18 07:56 08:10 Temperature Pulse Rate Pulse Rate [ 97 H 97 H Anterior Bilateral Throughout] Pulse Rate [ Apical] Respiratory Rate Respiratory 20 18 Rate [Anterior Bilateral Throughout] Blood Pressure O2 Sat by Pulse Oximetry - General Appearance General appearance: well-developed, well-nourished, appears stated age, obese, other (not in distress) EENT: ATNC, PERRL, hearing intact, vision intact Neck: supple Respiratory: Present: Clear to Ascultation Cardiology: regular, S1S2, no murmurs Gastrointestinal: normoactive bowel sounds, no tenderness, no distended Integumentary: no rash Neurologic: no focal deficit, no asterixis Musculoskeletal: other (1+ LE edema) Psychiatric: cooperative - Lab 08/10/18 08:30 08/10/18 08:30 Most recent lab results Calcium 8.1 mg/dL (8.4-10.2) L 08/08/18 05:18 Phosphorus 3.90 mg/dL (2.5-4.5) 08/06/18 05:39 Magnesium 1.80 mg/dL (1.7-2.3) 08/07/18 08:30 100.4 mg/dL (0.1-20.0) H 08/06/18 13:25 75 mmol/L 08/06/18 13:25 313 mg/dL (5-11.8) H 08/06/18 13:25 Medications & Allergies - Medications Allergies/Adverse Reactions: Allergies No Known Allergies Allergy (Unverified 08/04/18 12:53) Home Medications: Home Medications Medication Instructions Recorded Confirmed Last Taken Type No Known Home Medications [No 08/04/18 08/04/18 Unknown History Reported Home Medications] Active Medications: Generic Name Dose Route Start Last Admin Trade Name Freq PRN Reason Stop Dose Admin Acetaminophen 650 mg 08/04/18 23:08 Tylenol PO Q4H PRN Pain MILD(1-3)/Fever >100.5/GANT Albuterol/Ipratropium 1 ampul 08/05/18 14:00 08/08/18 07:56 Duoneb *Not For Prn Use* IH 1 ampul TIDRT MARLI Administration Amlodipine Besylate 10 mg 08/05/18 10:00 08/07/18 11:03 Norvasc PO 10 mg QDAY MARLI Administration Famotidine 20 mg 08/05/18 10:00 08/07/18 22:21 Pepcid PO 20 mg BID MARLI Administration Furosemide 40 mg 08/05/18 06:00 08/08/18 06:39 Lasix IV 40 mg 0600,1800 MARLI Administration Hydralazine HCl 10 mg 08/04/18 23:10 08/05/18 21:59 Apresoline IV 10 mg Q3H PRN Administration Blood Pressure Ferric Sodium Gluconate 110 mls @ 100 mls/hr 08/08/18 09:30 Complex 125 mg/ Sodium IV 08/08/18 10:35 Chloride ONCE ONE Insulin Human Lispro 0 unit 08/05/18 07:30 08/08/18 07:59 Humalog SUB-Q Not Given ACHS MARLI Protocol Losartan Potassium 100 mg 08/04/18 23:12 08/07/18 11:02 Cozaar PO 100 mg QDAY MARLI Administration Morphine Sulfate 2 mg 08/04/18 23:08 Morphine IV Q4H PRN Pain, Moderate (4-6) Ondansetron HCl 4 mg 08/04/18 23:08 Zofran IV Q8H PRN Nausea And Vomiting Sodium Chloride 10 ml 08/05/18 10:00 08/07/18 22:21 Sodium Chloride Flush Syringe 10 Ml IV 10 ml BID MARLI Administration Sodium Chloride 10 ml 08/04/18 23:08 08/06/18 06:11 Sodium Chloride Flush Syringe 10 Ml IV 10 ml PRN PRN Administration LINE FLUSH
--- NOTE | 2018-08-08 11:24 | Ultrasound Report ---
ULTRASOUND THORACENTESIS History: Right pleural effusion. Description of procedure: Informed consent was obtained. Sterile technique visualized. One percent lidocaine for skin anesthesia. Using ultrasound guidance, a 5 [place] centesis needle was advanced into the right pleural space. There was spontaneous return of blood-tinged fluid. 900 cc of fluid was aspirated and discarded. No complications. Impression: Successful ultrasound-guided right thoracentesis.
--- NOTE | 2018-08-08 11:28 | Procedure Note ---
Date of procedure: 08/08/18 Pre-op diagnosis: right pleural effusion Post-op diagnosis: same Procedure: US thoracentesis, right Findings: moderate right pleural fluid Anesthesia: local Surgeon: LEROY QUILES Estimated blood loss: none Pathology: none Specimen disposition: discarded Condition: stable Disposition: floor
[2018-08-08] MEDS: PEPCID PO SCH ×2 (11:57→21:40)
[2018-08-08] MEDS: COZAAR PO SCH (11:57)
[2018-08-08] MEDS: NORVASC PO SCH (11:57)
--- NOTE | 2018-08-08 11:57 | Progress Note ---
Assessment and Plan Fluid overload Heart failure with a preserved ejection fraction 60-65% by echo 04/2018 at [facility] Bilateral pleural effusion s/p right sided thoracentesis Acute renal failure Diabetes Hypertension Hx of Right Breast mass Anemia Noncompliant with medications and follow up Normal LVEF 60-65% by echocardiogram this admission. Recommendations: Advised fluid/sodium restriction. Diuretic therapy as per nephrology. Pulmonary consultation for left pleural effusion. No new cardiac recommendations Subjective Date of service: 08/08/18 Principal diagnosis: rt breast mass Interval history: No cardiac events overnight Patient is s/p right sided thoracentesis Objective Vital Signs Temp Pulse Pulse Pulse Pulse Resp Resp 08/08/18 10:00 89 18 08/08/18 08:10 97 H 18 08/08/18 07:56 97 H 20 08/08/18 07:55 08/08/18 07:03 97.2 F L 89 18 08/08/18 04:15 98.0 F 92 H 18 08/08/18 00:00 98 H 26 H 08/07/18 23:52 98.0 F 104 H 18 08/07/18 22:45 104 H 18 08/07/18 19:45 97.4 F L 105 H 20 08/07/18 19:43 104 H 08/07/18 19:29 103 H 18 08/07/18 19:20 08/07/18 19:19 101 H 17 08/07/18 15:47 98.0 F 100 H 18 08/07/18 13:42 98 H 20 08/07/18 13:32 97 H 20 08/07/18 12:00 96 H BP Pulse Ox 08/08/18 10:00 100 08/08/18 08:10 08/08/18 07:56 08/08/18 07:55 100 08/08/18 07:03 133/62 100 08/08/18 04:15 138/69 100 08/08/18 00:00 100 08/07/18 23:52 154/69 95 08/07/18 22:45 95 08/07/18 19:45 159/84 95 08/07/18 19:43 08/07/18 19:29 08/07/18 19:20 96 08/07/18 19:19 08/07/18 15:47 133/80 94 08/07/18 13:42 08/07/18 13:32 08/07/18 12:00 - Physical Examination General: No Apparent Distress HEENT: Positive: PERRL Neck: Positive: trachea midline Cardiac: Positive: Reg Rate and Rhythm Lungs: Positive: Decreased Breath Sounds Neuro: Positive: Grossly Intact Extremities: Present: edema - Labs and Meds CBC 08/08/18 Range/Units 05:18 WBC 8.4 (4.5-11.0) K/mm3 RBC 2.89 L (3.65-5.03) M/mm3 Hgb 7.3 L (10.1-14.3) gm/dl Hct 22.8 L (30.3-42.9) % Plt Count 358 (140-440) K/mm3 Lymph # 1.8 (1.2-5.4) K/mm3 [place] # 0.8 (0.0-0.8) K/mm3 Eos # 0.3 (0.0-0.4) K/mm3 Baso # 0.0 (0.0-0.1) K/mm3 Comprehensive Metabolic Panel 08/08/18 Range/Units 05:18 Sodium 143 (137-145) mmol/L Potassium 4.8 (3.6-5.0) mmol/L Chloride 110.4 H (98-107) mmol/L Carbon Dioxide 23 (22-30) mmol/L BUN 31 H (7-17) mg/dL Creatinine 1.6 H (0.7-1.2) mg/dL Glucose 164 H (65-100) mg/dL Calcium 8.1 L (8.4-10.2) mg/dL - Imaging and Cardiology EKG: report reviewed (sinus tachycardia probable left ventricular enlargement and left atrial enlargement)
[2018-08-08] MEDS: SODIUM CHLORIDE FLUSH SYRINGE 10 ML IV SCH ×2 (11:58→21:41)
--- NOTE | 2018-08-08 13:23 | XRay Report ---
AP CHEST: HISTORY: Short of breath, recent ultrasound-guided right thoracentesis Recent ultrasound guided right thoracentesis was performed in which 900 cc of fluid was removed. Complete evacuation of the right pleural fluid is demonstrated. There is a medium left pleural effusion which has reaccumulated. Cardiomegaly and pulmonary venous congestion appear stable. No pneumothorax is visualized. IMPRESSION: Complete evacuation of the right pleural effusion. No pneumothorax. The left pleural effusion appears to be reaccumulating.
--- NOTE | 2018-08-08 14:25 | Consultation ---
History of Present Illness Consult date: 08/08/18 Requesting physician: ANSHUL DUKE Reason for consult: other (Acute Respiratory Failure) History of present illness: PULMONARY/CCM CONSULT NOTE (Full dictation # [id number]) Please see dictated notes for full details - Oncology evaluation ongoing for breast mass Past History Past Medical History: diabetes, heart failure, hypertension Medications and Allergies Allergies Allergy/AdvReac Type Severity Reaction Status Date / Time No Known Allergies Allergy Unverified 08/04/18 12:53 Home Medications Medication Instructions Recorded Confirmed Last Taken Type RX: No Known Home Medications [No 08/04/18 08/04/18 Unknown History Reported Home Medications] Active Meds: Active Medications Acetaminophen (Tylenol) 650 mg PO Q4H PRN PRN Reason: Pain MILD(1-3)/Fever >100.5/GANT Albuterol/Ipratropium (Duoneb *Not For Prn Use*) 1 ampul IH TIDRT [facility] Last Admin: 08/08/18 13:56 Dose: 1 ampul Documented by: Amlodipine Besylate (Norvasc) 10 mg PO QDAY [facility] Last Admin: 08/08/18 11:57 Dose: 10 mg Documented by: Famotidine (Pepcid) 20 mg PO BID [facility] Last Admin: 08/08/18 11:57 Dose: 20 mg Documented by: Furosemide (Lasix) 40 mg IV 0600,1800 [facility] Last Admin: 08/08/18 06:39 Dose: 40 mg Documented by: Hydralazine HCl (Apresoline) 10 mg IV Q3H PRN PRN Reason: Blood Pressure Last Admin: 08/05/18 21:59 Dose: 10 mg Documented by: Insulin Human Lispro (Humalog) 0 unit SUB-Q [facility]; Protocol Last Admin: 08/08/18 11:25 Dose: Not Given Documented by: Losartan Potassium (Cozaar) 100 mg PO QDAY [facility] Last Admin: 08/08/18 11:57 Dose: 100 mg Documented by: Morphine Sulfate (Morphine) 2 mg IV Q4H PRN PRN Reason: Pain, Moderate (4-6) Ondansetron HCl (Zofran) 4 mg IV Q8H PRN PRN Reason: Nausea And Vomiting Sodium Chloride (Sodium Chloride Flush Syringe 10 Ml) 10 ml IV BID [facility] Last Admin: 08/08/18 11:58 Dose: 10 ml Documented by: Sodium Chloride (Sodium Chloride Flush Syringe 10 Ml) 10 ml IV PRN PRN PRN Reason: LINE FLUSH Last Admin: 08/06/18 06:11 Dose: 10 ml Documented by: Physical Examination Vital signs: Vital Signs Temp Pulse Resp BP Pulse Ox 98.7 F 102 H 18 157/88 84 08/04/18 12:53 08/04/18 12:53 08/04/18 12:53 08/04/18 12:53 08/04/18 12:53 Results - Laboratory Findings CBC and BMP: 08/08/18 05:18 08/08/18 05:18 PT/INR, D-dimer PT 13.7 Sec. (12.2-14.9) 08/04/18 13:30 INR 0.99 (0.87-1.13) 08/04/18 13:30 Abnormal lab findings: Abnormal Labs 08/04/18 08/04/18 08/04/18 13:30 13:30 23:15 WBC 11.4 H RBC 3.55 L Hgb 9.0 L Hct 27.8 L MCV 78 L MCH 25 L RDW 15.6 H [place] % (Auto) [place] # Baso # 0.2 H Seg Neutrophils % 72.9 H Seg Neutrophils # 8.3 H Potassium Chloride 107.9 H Carbon Dioxide BUN 23 H Creatinine 1.4 H Glucose 183 H POC Glucose Hemoglobin A1c 10.9 H Calcium Magnesium Iron TIBC Transferrin Alkaline Phosphatase 132 H Total Creatine Kinase 164 H CK-MB (CK-2) 4.3 H NT-Pro-B Natriuret Pep 4330 H Albumin 2.3 L Vitamin B12 Urine Creatinine Urine Total Protein 08/05/18 08/05/18 08/05/18 00:35 00:35 05:15 WBC RBC 3.30 L Hgb 8.4 L Hct 26.0 L MCV MCH 25 L RDW 15.7 H [place] % (Auto) 9.4 H [place] # 0.9 H Baso # Seg Neutrophils % Seg Neutrophils # Potassium Chloride Carbon Dioxide BUN Creatinine Glucose POC Glucose Hemoglobin A1c Calcium Magnesium Iron 17 L TIBC 159 L Transferrin 145 L Alkaline Phosphatase Total Creatine Kinase CK-MB (CK-2) NT-Pro-B Natriuret Pep Albumin Vitamin B12 > 2000 H Urine Creatinine Urine Total Protein 08/05/18 08/05/1819 05:15 12:15 21:30 WBC RBC Hgb Hct MCV MCH RDW [place] % (Auto) [place] # Baso # Seg Neutrophils % Seg Neutrophils # Potassium Chloride 111.1 H Carbon Dioxide 20 L BUN 23 H Creatinine 1.4 H Glucose 136 H POC Glucose 180 H 205 H Hemoglobin A1c Calcium Magnesium Iron TIBC Transferrin Alkaline Phosphatase Total Creatine Kinase CK-MB (CK-2) NT-Pro-B Natriuret Pep Albumin 2.0 L Vitamin B12 Urine Creatinine Urine Total Protein 08/06/18 08/06/18 08/06/18 05:39 07:20 12:25 WBC RBC Hgb Hct MCV MCH RDW [place] % (Auto) [place] # Baso # Seg Neutrophils % Seg Neutrophils # Potassium Chloride 110.6 H Carbon Dioxide BUN 29 H Creatinine 1.5 H Glucose 140 H POC Glucose 133 H 286 H Hemoglobin A1c Calcium Magnesium 1.60 L Iron TIBC Transferrin Alkaline Phosphatase Total Creatine Kinase CK-MB (CK-2) NT-Pro-B Natriuret Pep Albumin Vitamin B12 Urine Creatinine Urine Total Protein 08/06/18 08/06/18 08/06/18 13:25 16:22 22:03 WBC RBC Hgb Hct MCV MCH RDW [place] % (Auto) [place] # Baso # Seg Neutrophils % Seg Neutrophils # Potassium Chloride Carbon Dioxide BUN Creatinine Glucose POC Glucose 261 H 293 H Hemoglobin A1c Calcium Magnesium Iron TIBC Transferrin Alkaline Phosphatase Total Creatine Kinase CK-MB (CK-2) NT-Pro-B Natriuret Pep Albumin Vitamin B12 Urine Creatinine 100.4 H Urine Total Protein 313 H 08/07/18 08/07/18 08/07/18 07:21 08:30 10:59 WBC RBC Hgb Hct MCV MCH RDW [place] % (Auto) [place] # Baso # Seg Neutrophils % Seg Neutrophils # Potassium 5.2 H Chloride 109.7 H Carbon Dioxide BUN 30 H Creatinine 1.6 H Glucose 162 H POC Glucose 180 H 191 H Hemoglobin A1c Calcium Magnesium Iron TIBC Transferrin Alkaline Phosphatase Total Creatine Kinase CK-MB (CK-2) NT-Pro-B Natriuret Pep Albumin Vitamin B12 Urine Creatinine Urine Total Protein 08/07/18 08/07/18 08/08/18 15:49 20:31 05:18 WBC RBC 2.89 L Hgb 7.3 L Hct 22.8 L MCV MCH 25 L RDW 16.0 H [place] % (Auto) 9.1 H [place] # Baso # Seg Neutrophils % Seg Neutrophils # Potassium Chloride Carbon Dioxide BUN Creatinine Glucose POC Glucose 267 H 238 H Hemoglobin A1c Calcium Magnesium Iron TIBC Transferrin Alkaline Phosphatase Total Creatine Kinase CK-MB (CK-2) NT-Pro-B Natriuret Pep Albumin Vitamin B12 Urine Creatinine Urine Total Protein 08/08/18 08/08/18 08/08/18 05:18 07:10 11:17 WBC RBC Hgb Hct MCV MCH RDW [place] % (Auto) [place] # Baso # Seg Neutrophils % Seg Neutrophils # Potassium Chloride 110.4 H Carbon Dioxide BUN 31 H Creatinine 1.6 H Glucose 164 H POC Glucose 168 H 131 H Hemoglobin A1c Calcium 8.1 L Magnesium Iron TIBC Transferrin Alkaline Phosphatase Total Creatine Kinase CK-MB (CK-2) NT-Pro-B Natriuret Pep Albumin Vitamin B12 Urine Creatinine Urine Total Protein
--- NOTE | 2018-08-08 15:41 | Progress Note ---
Assessment and Plan Acute hypoxic respiratory failure, present on admission - Due to acute exacerbation of CHF and bilateral pleural effusion - Continue supplemental O2 and Herman as tolerated - Continue to treat underlying cause - consulted pulmonary, will follow recommendation - Braething status much improved following thoracentesis / Hypertensive emergency BP improving Patient given multiple doses of IV hydralazine to bring the blood pressure down Losartan Coreg and amlodipine added, IV hydralazine every 3 hours when necessary /Acute exacerbation of CHF (congestive heart failure) with preserved EF Patient initiated on IV Lasix and potassium Echocardiogram during this [facility] 60-65% Cardiology following, cont lasix iv for now / Right breast mass, consulted oncology - CT scan showed a right breast mass involving skin - Planned for biopsy, IR consulted /b/l Pleural effusion, - Moderate to severe pleural effusion bilaterally - Status post left-sided thoracentesis 08/07/18 drained 1.4 L of fluid - s/p right-sided thoracentesis yesterday drained 900cc - will follow ascitic fluid studym - pending /Type 2 diabetes mellitus hemoglobin A1c 10.8 SSI and long acting Coverage for now /hyperkalemia, due to STEVIE, resolved / STEVIE (acute kidney injury) Patient on Lasix, Cr stable Nephrology consult requested because the Lasix can increase the creatinine /Anemia of chronic disease and Fe deficiency replaced iron, transfuse if Hb <7 / DVT prophylaxis On Lovenox and GI prophylaxis Brief History: 68-year-old woman with a history of Diabetes, Hypertension and a Right Breast Mass for several years who presents to the hospital with shortness of breath and bilateral lower extremity edema with huge breast mass. Chest x-ray reveals bilateral pleural effusion, with at least moderate severity effusion on the left. The lung crooks show mild interstitial edema. EKG is normal sinus rhythm with no acute changes, essentially normal ECG. Radiological data: EKG: report reviewed (sinus tachycardia probable left ventricular enlargement and left atrial enlargement) Chest x-ray: Mild CHF. CT chest: Marked generalized edema. Right retroareolar 6 cm masslike area and overlying skin thickening. Bilateral moderate to large pleural effusions with adjacent compressive/dependent atelectasis, left more than right. Diffuse interstitial thickening could be interstitial edema and/or chronic disease. Mild emphysema in the upper lobes. Hospitalist Physical exam: GENERAL: well-developed and well-nourished elderly AAF lying on bed appeared to be in no discomfort. HEENT: Normocephalic. Atraumatic. No conjunctival congestion or icterus. Patient has moist mucous membranes. NECK: Supple. Trachea midline. CHEST/LUNGS: Clear to auscultated bilaterally, breathing nonlabored. No wheezes crackles or rhonchi. right sided breast mass HEART/CARDIOVASCULAR: Regular in rate and rhythm. S1 and S2 positive. ABDOMEN: Abdomen is soft, nontender. Patient has normal bowel sounds. SKIN: There is no rash. Warm and dry. NEURO: No focal motor deficit. Follows command. MUSCULOSKELETAL: No joint effusion or tenderness. EXTRIMITY: No edema, no cyanosis or clubbing. PSYCH: Cooperative. Subjective Date of service: 08/08/18 Principal diagnosis: anemia and breast mass Interval history: Patient seen and examined. Medical records and medication list reviewed. No acute event overnight noted by the RN. Patient states her breathing much improved. Patient is tolerating diet. Patient is still on 3-4 L oxygen Objective - Constitutional Vitals: Vital Signs - 12hr 08/08/18 08/08/18 08/08/18 04:15 07:03 07:55 Temperature 98.0 F 97.2 F L Pulse Rate 92 H 89 Pulse Rate [ Anterior Bilateral Throughout] Pulse Rate [ From Monitor] Respiratory 18 18 Rate Respiratory Rate [Anterior Bilateral Throughout] Blood Pressure 138/69 133/62 O2 Sat by Pulse 100 100 100 Oximetry 08/08/18 08/08/18 08/08/18 07:56 08:10 10:00 Temperature Pulse Rate Pulse Rate [ 97 H 97 H Anterior Bilateral Throughout] Pulse Rate [ 89 From Monitor] Respiratory 18 Rate Respiratory 20 18 Rate [Anterior Bilateral Throughout] Blood Pressure O2 Sat by Pulse 100 Oximetry 08/08/18 08/08/18 08/08/18 11:57 12:48 13:56 Temperature 98.2 F Pulse Rate 97 H 90 Pulse Rate [ 98 H Anterior Bilateral Throughout] Pulse Rate [ From Monitor] Respiratory 18 Rate Respiratory 18 Rate [Anterior Bilateral Throughout] Blood Pressure 139/71 O2 Sat by Pulse 99 Oximetry 08/08/18 14:08 Temperature Pulse Rate Pulse Rate [ 101 H Anterior Bilateral Throughout] Pulse Rate [ From Monitor] Respiratory Rate Respiratory 18 Rate [Anterior Bilateral Throughout] Blood Pressure O2 Sat by Pulse Oximetry - Labs CBC & Chem 7: 08/10/18 08:30 08/10/18 08:30 Labs: Abnormal lab results 08/07/18 08/07/18 08/08/18 Range/Units 15:49 20:31 05:18 RBC 2.89 L (3.65-5.03) M/mm3 Hgb 7.3 L (10.1-14.3) gm/dl Hct 22.8 L (30.3-42.9) % MCH 25 L (28-32) pg RDW 16.0 H (13.2-15.2) % [place] % (Auto) 9.1 H (0.0-7.3) % Chloride (98-107) mmol/L BUN (7-17) mg/dL Creatinine (0.7-1.2) mg/dL Glucose (65-100) mg/dL POC Glucose 267 H 238 H (70-105) Calcium (8.4-10.2) mg/dL 08/08/18 08/08/18 08/08/18 Range/Units 05:18 07:10 11:17 RBC (3.65-5.03) M/mm3 Hgb (10.1-14.3) gm/dl Hct (30.3-42.9) % MCH (28-32) pg RDW (13.2-15.2) % [place] % (Auto) (0.0-7.3) % Chloride 110.4 H (98-107) mmol/L BUN 31 H (7-17) mg/dL Creatinine 1.6 H (0.7-1.2) mg/dL Glucose 164 H (65-100) mg/dL POC Glucose 168 H 131 H (70-105) Calcium 8.1 L (8.4-10.2) mg/dL
--- NOTE | 2018-08-08 19:35 | Vascular Lab Report ---
PROCEDURE: VL VENOUS DUPLEX LE BILAT HISTORY: swelling FINDINGS: Real-time ultrasound of the legs was performed using grayscale and color Doppler images. These images demonstrate no evidence of deep venous thrombus in the right or left common femoral vein , superficial femoral vein, popliteal vein or posterior tibial vein. IMPRESSION: No DVT in either leg This document is electronically signed by Chang Bhakta MD., Aug 08 2018 07:33:11 PM ET
[2018-08-08] MEDS: BROVANA NEBU IH SCH (20:37)
[2018-08-08] MEDS: PULMICORT IH SCH (20:38)
[2018-08-08] MEDS: APRESOLINE IV PRN (20:41)
[2018-08-08] MEDS: MORPHINE IV PRN (21:49)
--- NOTE | 2018-08-08 23:57 | Consultation ---
PULMONARY CONSULTATION NOTE CONSULTING PHYSICIAN: Africa Hunter MD REASON FOR CONSULTATION: Acute hypoxemic respiratory failure. CHIEF COMPLAINT AND HISTORY OF PRESENT ILLNESS: As follows: The patient is a 68-year-old -[place] female with past medical history significant amongst other things for a diagnosis of congestive heart failure. Denies history of chronic obstructive lung disease, who presented to the Emergency Room complaining of shortness of breath, dyspnea on exertion have been going on about 3 days. She stated that she ran out of her diuretics some time back. She had been on home oxygen intermittently in the past, but not now. She also complained of bilateral lower extremity swelling. During the examination, she was found to have a fungating right breast mass. She stated that she noted a mass 3 years prior and did not want to be checked. She just came to the hospital for shortness of breath only. She was informed that this might be a breast cancer, but initially she had refused evaluation in the Emergency Room. She was admitted to the hospital with a diagnosis of an acute CHF exacerbation and we are asked to evaluate her. When I stopped by to see her, she was lying in bed. She was complaining of increased shortness of breath. She admitted to some element of orthopnea. She had a cough that was nonproductive. She denied any chest pain, pleuritic or otherwise denied nausea, vomiting, or overt aspiration. When asked about her history of tobacco use, she has about a 10+ pack year smoking history, but quit smoking many years ago. That really is as much of the history of presentation as I have. She mentions she denied sick contacts. Denied recent long distance travel, but again admitted to the bilateral lower extremity swelling. PAST MEDICAL HISTORY: Again, significant for congestive heart failure, diabetes, she is obese. PAST SURGICAL HISTORY: Denies. MEDICATIONS: She was on at the time I stopped by to see her were reviewed. Pertinent medications included the following: DuoNeb treatments nebulized t.i.d. scheduled, amlodipine 10 mg p.o. daily, Pepcid 20 mg p.o. b.i.d., Lasix 40 mg IV b.i.d., p.r.n., hydralazine 10 mg IV q. 3 hours p.r.n. elevated blood pressure, insulin via sliding scale, losartan 100 mg p.o. daily, morphine 2 mg IV q. 4 hours p.r.n. moderate pain, Zofran 4 mg IV q. 8 hours p.r.n. nausea and vomiting. ALLERGIES: No known drug allergies. DIET: Obese lady. Denies significant weight loss or gain in the preceding few weeks to months. FAMILY AND SOCIAL HISTORY: She has a remote 10+ pack year tobacco smoking history. Denies alcohol, tobacco, illicit drug use or abuse currently. There is a family history of hypertension. REVIEW OF SYSTEMS: No loss of consciousness. No new onset seizures. No new onset focal weakness. Denies gross hematochezia or melena. Denies gross hematuria or dysuria. She has the new onset bilateral extremity swelling. She denies polydipsia, polyuria. Denies heat or cold intolerance. She denies any gross or streaky hemoptysis. Denied palpitations. She has had dyspnea on exertion. She has had the orthopnea. She has the cough. Complete 13-system review of system was obtained. Pertinent positives and/or negatives as in body of history above, otherwise noncontributory. I should mention she denied any new headaches, any lateralizing signs, any paresthesias. PHYSICAL EXAMINATION: VITAL SIGNS: At presentation in the Emergency Room, she was afebrile, temperature 98.7 degrees Fahrenheit with a pulse of 102, respiratory rate of 18, blood pressure 157/88, O2 sats were 84%, inspired oxygen concentration at that time was not recorded. When I saw her, O2 sats were 99% that was on a 35% Venturi mask. GENERAL: She is an elderly looking obese -[place] female, normocephalic, atraumatic, talking to me with slightly interrupted sentences, in mild respiratory distress at rest. HEAD, EYES, EARS, NOSE AND THROAT: She is anicteric. No conjunctival erythema. Oropharynx is moist. It is a Mallampati #4 oropharynx. No thyromegaly. She has gross jugular venous distention up to the angle of her jaw. Grossly, no palpable lymph nodes in the supraclavicular or submandibular lymph node chains. LUNGS: Auscultation of both lung crooks significant for bilateral rales in particular in the bases, prolonged expiratory phase. No active wheezing. HEART: Heart sounds 1 and 2 are heard, regular rate and rhythm at the time of my evaluation without overt rubs or murmurs. ABDOMEN: Soft, full, protuberant. Bowel sounds are positive, nontender, no palpable hepatosplenomegaly. EXTREMITIES: Without overt digital clubbing or cyanosis and really just trace pedal edema. Pedal pulses are palpable bilaterally. NEUROLOGIC: Pupils are equal, round, about 4 mm, reactive to light. Extraocular muscle movements are intact. She moves all 4 extremities spontaneously. No fasciculations. No spasticity. SKIN: The skin is of normal turgor in the areas examined. BREASTS: Deferred, but we have a fungating mass reported in the right breast. The odor in the room did suggest that diagnosis also. LABORATORY DATA: From review as follows: White cell count on admission 11,400, hemoglobin 9.0, hematocrit 27.8, platelets 419. INR 0.99. Serum sodium 141, potassium 3.9, chloride 108, bicarbonate 22, BUN 23, creatinine 1.4, glucose 183. Hemoglobin A1c was 10.9. AST, ALT within normal limits. Alkaline phosphatase was up a little bit at 132. Troponin within normal limits. BNP was 4330. Most recent labs: White count is 8400. BUN is 31, creatinine is 1.6. I have reviewed the chest x-ray. She does have bilateral pulmonary infiltrates, interstitial pattern with some cephalization. She likely has bilateral pleural effusions, small to moderate, borderline to gross cardiomegaly, no overt pneumothorax, no gross bony fractures that I can see. Most recent chest x-rays likely a post right thoracentesis with improvement in the right pleural effusion. She has a CT scan of the chest that was done in 2015. I had mentioned the right retroareolar 6 cm mass-like area with overlying skin thickening, probably consistent with a fungating mass reported. ASSESSMENT: 1. Acute hypoxemic respiratory failure. 2. Acute congestive heart failure exacerbation. Echocardiogram done on 08/05/2018 reports ejection fraction 60-65%; however, with diastolic dysfunction. No pulmonary hypertension reported. 3. Likely breast cancer. 4. History of tobacco use. 5. Diabetes. 6. Obesity. 7. Hypertension. 8. Acute kidney injury. 9. Anemia that is normocytic. PLAN: I will make sure that the pleural fluid has been sent for pertinent studies in particular cytology in this lady. We will also send it for cultures and other routine studies. Supplemental oxygen will be continued to keep sats greater than or equal to about 90%. She is happy with the bilevel positive airway pressure ventilation machine. She is using at night. I have encouraged continued bedtime use with use p.r.n. during the day. She will need a sleep study to be done post-discharge for likely obstructive sleep apnea. I will go ahead and empirically based on her x-ray features, her tobacco smoking history and continued shortness of breath, I will schedule her on Brovana and Pulmicort and then continue the p.r.n. short-acting treatments. We should continue diuresis for the pulmonary edema component. I will get a CT scan of the chest, especially post-thoracentesis now to ensure that we are not dealing with pulmonary metastasis at this time. She certainly is at risk for venous thromboembolic phenomenon. I expected D-dimer level will be elevated at this point, I will start with bilateral lower extremity Dopplers as part of a screen, pulse or minus V/Q scan or CT angiogram depend on her renal function down the line. Weight loss has been counseled. Optimization of the cardiac function will improve her symptoms. I will defer to the garland maker. She is appropriately on GI prophylaxis. She will be placed on DVT prophylaxis. Flu and pneumonia vaccination will be addressed per protocol. Thank you very much for the consult. We will follow along and make further recommendations as the picture progresses/becomes clearer. JOB# [id number] DILIP/NOELLE
[2018-08-09 05:14] LABS: Calcium 8.7 mg/dL (8.4-10.2)
[2018-08-09] MEDS: LASIX IV SCH ×2 (06:44→18:28)
[2018-08-09] MEDS: HumaLOG SUB-Q SCH ×4 (07:30→21:28)
--- NOTE | 2018-08-09 08:05 | Progress Note ---
Assessment and Plan 1. Acute kidney injury: Likely the STEVIE is related to proeinuria / nephrotic syndrome. Renal US was negative for Tofte. Creatinine level plateaued. Monitor renal function. Avoid nephrotoxic agents. Meds dosage based on GFR. 2. Suspected Nephrotic syndrome: Urine protein creatinine ratio 3.12 Suspect Diabetic nephropathy vs Minimal change vs FSGS. Unlikely Nephritis. NUBIA, ANCA, C3, C4 and SPEP results pending. 3. FEN: Hyperkalemia, improved. Volume overload, IV Lasix. Monitor lytes. 4. HFpEF: Followed by Cards. 5. R breast mass: Seen by Heme-Onc. 6. Pleural effusion: S/p thoracentesis. 7. Anemia: POA. Subjective Date of service: 08/09/18 Principal diagnosis: anemia and breast mass Interval history: Patient was seen and examined at the bedside. Doing ok. Objective - Vital Signs Vital signs: Vital Signs - 12hr 08/08/18 08/08/18 08/08/18 20:08 20:25 20:40 Temperature Pulse Rate 105 H Pulse Rate [ 102 H Anterior Bilateral Throughout] Pulse Rate [ 103 H Apical] Respiratory 18 Rate Respiratory 18 Rate [Anterior Bilateral Throughout] Respiratory Rate [Back] Blood Pressure O2 Sat by Pulse 95 96 Oximetry 08/08/18 08/08/18 08/08/18 20:41 20:57 21:49 Temperature Pulse Rate 103 H Pulse Rate [ 105 H Anterior Bilateral Throughout] Pulse Rate [ Apical] Respiratory 18 Rate Respiratory 18 Rate [Anterior Bilateral Throughout] Respiratory Rate [Back] Blood Pressure 176/87 O2 Sat by Pulse Oximetry 08/08/18 08/08/18 08/08/18 22:00 22:06 22:19 Temperature Pulse Rate 104 H Pulse Rate [ Anterior Bilateral Throughout] Pulse Rate [ Apical] Respiratory 22 18 Rate Respiratory Rate [Anterior Bilateral Throughout] Respiratory 18 Rate [Back] Blood Pressure O2 Sat by Pulse 97 Oximetry 08/09/18 08/09/18 08/09/18 00:09 04:13 07:56 Temperature 98.3 F 98.4 F 98.4 F Pulse Rate 104 H 96 H 94 H Pulse Rate [ Anterior Bilateral Throughout] Pulse Rate [ Apical] Respiratory 18 18 20 Rate Respiratory Rate [Anterior Bilateral Throughout] Respiratory Rate [Back] Blood Pressure 138/52 132/65 140/74 O2 Sat by Pulse 98 100 98 Oximetry - General Appearance General appearance: well-developed, well-nourished, appears stated age, obese, other (not in distress) EENT: ATNC, PERRL, hearing intact, vision intact Neck: supple Respiratory: Present: Clear to Ascultation Cardiology: regular, S1S2, no murmurs Gastrointestinal: normoactive bowel sounds, no tenderness, no distended, obese Integumentary: warm and dry Neurologic: no focal deficit, no asterixis Musculoskeletal: other (b/l LE edema noted) Psychiatric: cooperative - Lab 08/10/18 08:30 08/10/18 08:30 Most recent lab results Calcium 8.7 mg/dL (8.4-10.2) 08/09/18 04:24 Phosphorus 3.90 mg/dL (2.5-4.5) 08/06/18 05:39 Magnesium 1.80 mg/dL (1.7-2.3) 08/07/18 08:30 100.4 mg/dL (0.1-20.0) H 08/06/18 13:25 75 mmol/L 08/06/18 13:25 313 mg/dL (5-11.8) H 08/06/18 13:25 Medications & Allergies - Medications Allergies/Adverse Reactions: Allergies No Known Allergies Allergy (Unverified 08/04/18 12:53) Home Medications: Home Medications Medication Instructions Recorded Confirmed Last Taken Type No Known Home Medications [No 08/04/18 08/04/18 Unknown History Reported Home Medications] Active Medications: Generic Name Dose Route Start Last Admin Trade Name Freq PRN Reason Stop Dose Admin Acetaminophen 650 mg 08/04/18 23:08 Tylenol PO Q4H PRN Pain MILD(1-3)/Fever >100.5/GANT Albuterol/Ipratropium 1 ampul 08/05/18 14:00 08/08/18 20:37 Duoneb *Not For Prn Use* IH 1 ampul TIDRT MARLI Administration Amlodipine Besylate 10 mg 08/05/18 10:00 08/08/18 11:57 Norvasc PO 10 mg QDAY MARLI Administration Arformoterol Tartrate 15 mcg 08/08/18 20:00 08/08/18 20:37 Brovana Nebu IH 15 mcg Q12HRT MARLI Administration Budesonide 0.5 mg 08/08/18 20:00 08/08/18 20:38 Pulmicort IH 0.5 mg Q12HRT MARLI Administration Famotidine 20 mg 08/05/18 10:00 08/08/18 21:40 Pepcid PO 20 mg BID MARLI Administration Furosemide 40 mg 08/05/18 06:00 08/09/18 06:44 Lasix IV 40 mg 0600,1800 MARLI Administration Hydralazine HCl 10 mg 08/04/18 23:10 08/08/18 20:41 Apresoline IV 10 mg Q3H PRN Administration Blood Pressure Insulin Human Isoph/Insulin Regular 8 unit 08/08/18 17:00 08/08/18 18:24 Humulin 70/30 SUB-Q Not Given BIDDIAB MARLI Insulin Human Lispro 0 unit 08/05/18 07:30 08/08/18 21:40 Humalog SUB-Q 3 unit ACHS MARLI Administration Protocol Losartan Potassium 100 mg 08/04/18 23:12 08/08/18 11:57 Cozaar PO 100 mg QDAY MARLI Administration Morphine Sulfate 2 mg 08/04/18 23:08 08/08/18 21:49 Morphine IV 2 mg Q4H PRN Administration Pain, Moderate (4-6) Ondansetron HCl 4 mg 08/04/18 23:08 Zofran IV Q8H PRN Nausea And Vomiting Sodium Chloride 10 ml 08/05/18 10:00 08/08/18 21:41 Sodium Chloride Flush Syringe 10 Ml IV 10 ml BID MARLI Administration Sodium Chloride 10 ml 08/04/18 23:08 08/06/18 06:11 Sodium Chloride Flush Syringe 10 Ml IV 10 ml PRN PRN Administration LINE FLUSH
[2018-08-09] MEDS: BROVANA NEBU IH SCH ×2 (08:07→20:09)
[2018-08-09] MEDS: DUONEB *Not for PRN Use IH SCH ×3 (08:07→20:10)
[2018-08-09] MEDS: PULMICORT IH SCH ×2 (08:07→20:09)
--- NOTE | 2018-08-09 08:48 | Progress Note ---
Assessment and Plan - Patient Problems (1) Edema Current Visit: Yes Status: Acute Plan to address problem: We will continue diuretic therapy for fluid overload and bilateral lower extremity edema. Workup of right breast mass is in progress. The patient has also had thoracentesis for left pleural effusion. Subjective Date of service: 08/09/18 Principal diagnosis: anemia and breast mass Interval history: Patient is comfortable, no chest pain and no shortness of breath. She remains on facemask O2. Her lower extremity edema appears to be slowly resolving. Objective Vital Signs Temp Pulse Pulse Pulse Pulse Resp Resp 08/09/18 07:56 98.4 F 94 H 20 08/09/18 04:13 98.4 F 96 H 18 08/09/18 00:09 98.3 F 104 H 18 08/08/18 22:19 18 08/08/18 22:06 104 H 22 08/08/18 22:00 08/08/18 21:49 18 08/08/18 20:57 105 H 18 08/08/18 20:41 103 H 08/08/18 20:40 102 H 18 08/08/18 20:25 103 H 18 08/08/18 20:08 105 H 08/08/18 19:19 97.0 F L 103 H 20 08/08/18 14:48 98.3 F 106 H 18 08/08/18 14:08 101 H 18 08/08/18 13:56 98 H 18 08/08/18 12:48 90 08/08/18 11:57 98.2 F 97 H 18 08/08/18 10:00 89 18 Resp BP Pulse Ox 08/09/18 07:56 140/74 98 08/09/18 04:13 132/65 100 08/09/18 00:09 138/52 98 08/08/18 22:19 08/08/18 22:06 97 08/08/18 22:00 18 08/08/18 21:49 08/08/18 20:57 08/08/18 20:41 176/87 08/08/18 20:40 96 08/08/18 20:25 95 08/08/18 20:08 08/08/18 19:19 176/87 95 08/08/18 14:48 161/78 94 08/08/18 14:08 08/08/18 13:56 08/08/18 12:48 08/08/18 11:57 139/71 99 08/08/18 10:00 100 - Physical Examination General: No Apparent Distress HEENT: Positive: PERRL Neck: Positive: trachea midline Cardiac: Positive: Reg Rate and Rhythm Lungs: Positive: Decreased Breath Sounds Neuro: Positive: Grossly Intact Abdomen: Positive: Soft Skin: Positive: Clear Extremities: Present: +3 Edema - Labs and Meds Cardiac Enzymes 08/08/18 Range/Units 16:02 Lactate Dehydrogenase 327 H (91-180) units/L Comprehensive Metabolic Panel 08/08/18 08/09/18 Range/Units 16:02 04:24 Sodium 144 (137-145) mmol/L Potassium 4.6 (3.6-5.0) mmol/L Chloride 110.3 H (98-107) mmol/L Carbon Dioxide 24 (22-30) mmol/L BUN 34 H (7-17) mg/dL Creatinine 1.5 H (0.7-1.2) mg/dL Glucose 152 H (65-100) mg/dL Calcium 8.7 (8.4-10.2) mg/dL Total Protein 6.3 (6.3-8.2) g/dL - Imaging and Cardiology EKG: report reviewed (sinus tachycardia probable left ventricular enlargement and left atrial enlargement)
[2018-08-09] MEDS: COZAAR PO SCH (09:13)
[2018-08-09] MEDS: PEPCID PO SCH ×2 (09:13→21:28)
[2018-08-09] MEDS: NORVASC PO SCH (09:13)
--- NOTE | 2018-08-09 17:00 | Progress Note ---
Assessment and Plan Patient awake. Resting on High flow O2 6 litres ,O2 saturation 93%. Patient complaining some shortness of breath and non productive cough. - Patient Problems (1) Acute and chronic respiratory failure Current Visit: Yes Status: Acute Plan to address problem: On High flow o2 6 litres. Albuterol/atrovent aerosol treatments q 6 hours prn for shortness of breath. Brovanna/Budesonide aerosol treatments q 12 hours. Recommend DVT prophylaxis S/C Heparin. Continue famotidine. (2) Acute exacerbation of CHF (congestive heart failure) Current Visit: Yes Status: Acute Qualifiers: Heart failure type: combined systolic and diastolic Qualified Code(s): I50.43 - Acute on chronic combined systolic (congestive) and diastolic (congestive) heart failure Plan to address problem: Management as per primary care and cardiology. (3) STEVIE (acute kidney injury) Current Visit: Yes Status: Acute Plan to address problem: Managent as per Neohrology. (4) Breast mass in female Current Visit: Yes Status: Acute Plan to address problem: Management as per primary care and surgery. (5) Hypertensive emergency Current Visit: Yes Status: Acute Plan to address problem: Management as per primary care. (6) Anemia Current Visit: Yes Status: Chronic Qualifiers: Anemia type: unspecified type Qualified Code(s): D64.9 - Anemia, unspecified Plan to address problem: Management as per primary care and hematology. 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 Subjective Date of service: 08/09/18 Principal diagnosis: anemia and breast mass Interval history: Patient awake. Resting on High flow O2 6 litres ,O2 saturation 93%. Patient complaining some shortness of breath and non productive cough. Objective Vital Signs - 12hr 08/09/18 08/09/18 08/09/18 07:56 08:00 08:10 Temperature 98.4 F Pulse Rate 94 H Pulse Rate [ 94 H 94 H Anterior Bilateral Throughout] Respiratory 20 Rate Respiratory 18 18 Rate [Anterior Bilateral Throughout] Blood Pressure 140/74 O2 Sat by Pulse 98 Oximetry 08/09/18 08/09/18 08/09/18 10:00 11:29 15:34 Temperature 98.0 F 98.0 F Pulse Rate 101 H 104 H Pulse Rate [ Anterior Bilateral Throughout] Respiratory 20 20 Rate Respiratory Rate [Anterior Bilateral Throughout] Blood Pressure 143/69 139/76 O2 Sat by Pulse 93 91 93 Oximetry Constitutional: no acute distress, alert, other (Has cough) Eyes: non-icteric ENT: oropharynx moist Neck: supple, no lymphadenopathy Ascultation: Left: diminished breath sounds Cardiovascular: regular rate and rhythm Gastrointestinal: normoactive bowel sounds, soft Integumentary: normal Extremities: no cyanosis, no edema Neurologic: normal mental status, non-focal exam, pupils equal and round, CN II-XII normal Psychiatric: mood appropriate CBC and BMP: 08/08/18 05:18 08/09/18 04:24 ABG, PT/INR, D-dimer: ABG POC ABG pH 7.349 (7.35-7.45) L 08/08/18 18:27 POC ABG pCO2 42.3 (35-45) 08/08/18 18:27 POC ABG pO2 60 (80-105) L 08/08/18 18:27 POC ABG HCO3 23.3 (22-26 mml/L) 08/08/18 18:27 POC ABG Total CO2 25 (23-27mmol/L) 08/08/18 18:27 POC ABG O2 Sat 89 08/08/18 18:27 PT/INR, D-dimer PT 13.7 Sec. (12.2-14.9) 08/04/18 13:30 INR 0.99 (0.87-1.13) 08/04/18 13:30 3043.96 ng/mlDDU (0-234) H 08/08/18 16:02 Abnormal lab findings: Abnormal Labs 08/04/18 08/04/18 08/04/18 13:30 13:30 23:15 WBC 11.4 H RBC 3.55 L Hgb 9.0 L Hct 27.8 L MCV 78 L MCH 25 L RDW 15.6 H [place] % (Auto) [place] # Baso # 0.2 H Seg Neutrophils % 72.9 H Seg Neutrophils # 8.3 H D-Dimer POC ABG pH POC ABG pO2 Potassium Chloride 107.9 H Carbon Dioxide BUN 23 H Creatinine 1.4 H Glucose 183 H POC Glucose Hemoglobin A1c 10.9 H Calcium Magnesium Iron TIBC Transferrin Alkaline Phosphatase 132 H Lactate Dehydrogenase Total Creatine Kinase 164 H CK-MB (CK-2) 4.3 H NT-Pro-B Natriuret Pep 4330 H Albumin 2.3 L Vitamin B12 Urine Creatinine Urine Total Protein 08/05/18 08/05/18 08/05/18 00:35 00:35 05:15 WBC RBC 3.30 L Hgb 8.4 L Hct 26.0 L MCV MCH 25 L RDW 15.7 H [place] % (Auto) 9.4 H [place] # 0.9 H Baso # Seg Neutrophils % Seg Neutrophils # D-Dimer POC ABG pH POC ABG pO2 Potassium Chloride Carbon Dioxide BUN Creatinine Glucose POC Glucose Hemoglobin A1c Calcium Magnesium Iron 17 L TIBC 159 L Transferrin 145 L Alkaline Phosphatase Lactate Dehydrogenase Total Creatine Kinase CK-MB (CK-2) NT-Pro-B Natriuret Pep Albumin Vitamin B12 > 2000 H Urine Creatinine Urine Total Protein 08/05/18 08/05/18 08/05/18 05:15 12:15 21:30 WBC RBC Hgb Hct MCV MCH RDW [place] % (Auto) [place] # Baso # Seg Neutrophils % Seg Neutrophils # D-Dimer POC ABG pH POC ABG pO2 Potassium Chloride 111.1 H Carbon Dioxide 20 L BUN 23 H Creatinine 1.4 H Glucose 136 H POC Glucose 180 H 205 H Hemoglobin A1c Calcium Magnesium Iron TIBC Transferrin Alkaline Phosphatase Lactate Dehydrogenase Total Creatine Kinase CK-MB (CK-2) NT-Pro-B Natriuret Pep Albumin 2.0 L Vitamin B12 Urine Creatinine Urine Total Protein 08/06/18 08/06/18 08/06/18 05:39 07:20 12:25 WBC RBC Hgb Hct MCV MCH RDW [place] % (Auto) [place] # Baso # Seg Neutrophils % Seg Neutrophils # D-Dimer POC ABG pH POC ABG pO2 Potassium Chloride 110.6 H Carbon Dioxide BUN 29 H Creatinine 1.5 H Glucose 140 H POC Glucose 133 H 286 H Hemoglobin A1c Calcium Magnesium 1.60 L Iron TIBC Transferrin Alkaline Phosphatase Lactate Dehydrogenase Total Creatine Kinase CK-MB (CK-2) NT-Pro-B Natriuret Pep Albumin Vitamin B12 Urine Creatinine Urine Total Protein 08/06/18 08/06/18 08/06/18 13:25 16:22 22:03 WBC RBC Hgb Hct MCV MCH RDW [place] % (Auto) [place] # Baso # Seg Neutrophils % Seg Neutrophils # D-Dimer POC ABG pH POC ABG pO2 Potassium Chloride Carbon Dioxide BUN Creatinine Glucose POC Glucose 261 H 293 H Hemoglobin A1c Calcium Magnesium Iron TIBC Transferrin Alkaline Phosphatase Lactate Dehydrogenase Total Creatine Kinase CK-MB (CK-2) NT-Pro-B Natriuret Pep Albumin Vitamin B12 Urine Creatinine 100.4 H Urine Total Protein 313 H 08/07/18 08/07/18 08/07/18 07:21 08:30 10:59 WBC RBC Hgb Hct MCV MCH RDW [place] % (Auto) [place] # Baso # Seg Neutrophils % Seg Neutrophils # D-Dimer POC ABG pH POC ABG pO2 Potassium 5.2 H Chloride 109.7 H Carbon Dioxide BUN 30 H Creatinine 1.6 H Glucose 162 H POC Glucose 180 H 191 H Hemoglobin A1c Calcium Magnesium Iron TIBC Transferrin Alkaline Phosphatase Lactate Dehydrogenase Total Creatine Kinase CK-MB (CK-2) NT-Pro-B Natriuret Pep Albumin Vitamin B12 Urine Creatinine Urine Total Protein 08/07/18 08/07/18 08/08/18 15:49 20:31 05:18 WBC RBC 2.89 L Hgb 7.3 L Hct 22.8 L MCV MCH 25 L RDW 16.0 H [place] % (Auto) 9.1 H [place] # Baso # Seg Neutrophils % Seg Neutrophils # D-Dimer POC ABG pH POC ABG pO2 Potassium Chloride Carbon Dioxide BUN Creatinine Glucose POC Glucose 267 H 238 H Hemoglobin A1c Calcium Magnesium Iron TIBC Transferrin Alkaline Phosphatase Lactate Dehydrogenase Total Creatine Kinase CK-MB (CK-2) NT-Pro-B Natriuret Pep Albumin Vitamin B12 Urine Creatinine Urine Total Protein 08/08/18 08/08/18 08/08/18 05:18 07:10 11:17 WBC RBC Hgb Hct MCV MCH RDW [place] % (Auto) [place] # Baso # Seg Neutrophils % Seg Neutrophils # D-Dimer POC ABG pH POC ABG pO2 Potassium Chloride 110.4 H Carbon Dioxide BUN 31 H Creatinine 1.6 H Glucose 164 H POC Glucose 168 H 131 H Hemoglobin A1c Calcium 8.1 L Magnesium Iron TIBC Transferrin Alkaline Phosphatase Lactate Dehydrogenase Total Creatine Kinase CK-MB (CK-2) NT-Pro-B Natriuret Pep Albumin Vitamin B12 Urine Creatinine Urine Total Protein 08/08/18 08/08/18 08/08/18 15:28 16:02 16:02 WBC RBC Hgb Hct MCV MCH RDW [place] % (Auto) [place] # Baso # Seg Neutrophils % Seg Neutrophils # D-Dimer 3043.96 H POC ABG pH POC ABG pO2 Potassium Chloride Carbon Dioxide BUN Creatinine Glucose POC Glucose 237 H Hemoglobin A1c Calcium Magnesium Iron TIBC Transferrin Alkaline Phosphatase Lactate Dehydrogenase 327 H Total Creatine Kinase CK-MB (CK-2) NT-Pro-B Natriuret Pep Albumin Vitamin B12 Urine Creatinine Urine Total Protein 08/08/18 08/08/18 08/09/18 18:27 20:52 04:24 WBC RBC Hgb Hct MCV MCH RDW [place] % (Auto) [place] # Baso # Seg Neutrophils % Seg Neutrophils # D-Dimer POC ABG pH 7.349 L POC ABG pO2 60 L Potassium Chloride 110.3 H Carbon Dioxide BUN 34 H Creatinine 1.5 H Glucose 152 H POC Glucose 221 H Hemoglobin A1c Calcium Magnesium Iron TIBC Transferrin Alkaline Phosphatase Lactate Dehydrogenase Total Creatine Kinase CK-MB (CK-2) NT-Pro-B Natriuret Pep Albumin Vitamin B12 Urine Creatinine Urine Total Protein 08/09/18 08/09/18 08/09/18 08:00 11:32 15:37 WBC RBC Hgb Hct MCV MCH RDW [place] % (Auto) [place] # Baso # Seg Neutrophils % Seg Neutrophils # D-Dimer POC ABG pH POC ABG pO2 Potassium Chloride Carbon Dioxide BUN Creatinine Glucose POC Glucose 123 H 246 H 243 H Hemoglobin A1c Calcium Magnesium Iron TIBC Transferrin Alkaline Phosphatase Lactate Dehydrogenase Total Creatine Kinase CK-MB (CK-2) NT-Pro-B Natriuret Pep Albumin Vitamin B12 Urine Creatinine Urine Total Protein Chest x-ray: report reviewed (Left pleural effusion.), image reviewed
[2018-08-09] MEDS: SODIUM CHLORIDE FLUSH SYRINGE 10 ML IV SCH ×2 (18:28→21:29)
[2018-08-10] MEDS: LASIX IV SCH ×3 (06:32→17:15)
[2018-08-10] MEDS: HumaLOG SUB-Q SCH ×4 (07:30→21:58)
--- NOTE | 2018-08-10 08:32 | Hem/Onc Progress Note ---
Assessment and Plan 1. Right breast mass, likely neoplastic. 2. Short of breath. 3. Low albumin. 4. Anemia. Serum iron is low. B12 is normal. We will follow. 5. Diabetes. 6. Hypertension. 7. I will follow the patient during inpatient stay and then in the clinic. radiology of the chest, 8. renal impairement - nephrology following CT chest - non contrast - breast mass at [facility] in Mar 2018 - CA 27-29 was high IR following low albumin thoracentesis done iv iron trial path pending - Patient Problems (1) Breast mass in female Current Visit: Yes Status: Acute Subjective Date of service: 08/10/18 Principal diagnosis: breast mass Interval history: on o2 Objective - Constitutional Vitals: Last Vital Signs Temp 98.0 F 08/10/18 04:38 Pulse 88 08/10/18 04:38 Resp 18 08/10/18 04:38 BP 117/53 08/10/18 04:38 Pulse Ox 100 08/10/18 04:38 Pain Intensity (0-10): denies any pain General appearance: other (on o2) Performance status: 3-limited selfcare - EENT Eyes: PERRL ENT: hearing intact Lymph node exam: negative cervical - Neck Neck: supple - Respiratory Respiratory effort: Positive: normal Respiratory: bilateral: diminished - Cardiovascular Heart Sounds: Present: S1 & S2 Extremities: normal temperature Extremity abnormal: edema - Gastrointestinal General gastrointestinal: Present: soft, non-tender Rectal Exam: deferred - Genitourinary Female genitourinary: Present: deferred - Musculoskeletal Musculoskeletal: generalized weakness - Neurologic Neurologic: moves all extremities - Labs Lab Results: Laboratory Results - last 24 hr 08/06/18 08/09/18 08/09/18 05:39 08:00 11:32 POC Glucose 123 H 246 H Complement C4 42 08/09/18 08/09/18 15:37 20:54 POC Glucose 243 H 158 H Complement C4 Medications & Allergies - Medications Allergies/Adverse Reactions: Allergies No Known Allergies Allergy (Unverified 08/04/18 12:53) Home Medications: Home Medications Medication Instructions Recorded Confirmed Last Taken Type No Known Home Medications [No 08/04/18 08/04/18 Unknown History Reported Home Medications] Active Medications: Generic Name Dose Route Start Last Admin Trade Name Freq PRN Reason Stop Dose Admin Acetaminophen 650 mg 08/04/18 23:08 Tylenol PO Q4H PRN Pain MILD(1-3)/Fever >100.5/GANT Albuterol/Ipratropium 1 ampul 08/05/18 14:00 08/09/18 20:10 Duoneb *Not For Prn Use* IH Not Given TIDRT MARLI Amlodipine Besylate 10 mg 08/05/18 10:00 08/09/18 09:13 Norvasc PO 10 mg QDAY MARLI Administration Arformoterol Tartrate 15 mcg 08/08/18 20:00 08/09/18 20:09 Brovana Nebu IH 15 mcg Q12HRT MARLI Administration Budesonide 0.5 mg 08/08/18 20:00 08/09/18 20:09 Pulmicort IH 0.5 mg Q12HRT MARLI Administration Famotidine 20 mg 08/05/18 10:00 08/09/18 21:28 Pepcid PO 20 mg BID MARLI Administration Furosemide 40 mg 08/05/18 06:00 08/09/18 18:28 Lasix IV 40 mg 0600,1800 MARLI Administration Heparin Sodium (Porcine) 5,000 unit 08/10/18 10:00 Heparin SUB-Q Q12HR [facility] Hydralazine HCl 10 mg 08/04/18 23:10 08/08/18 20:41 Apresoline IV 10 mg Q3H PRN Administration Blood Pressure Insulin Human Isoph/Insulin Regular 8 unit 08/08/18 17:00 08/09/18 18:27 Humulin 70/30 SUB-Q 8 unit BIDDIAB MARLI Administration Insulin Human Lispro 0 unit 08/05/18 07:30 08/09/18 21:28 Humalog SUB-Q 2 unit ACHS MARLI Administration Protocol Losartan Potassium 100 mg 08/04/18 23:12 08/09/18 09:13 Cozaar PO 100 mg QDAY MARLI Administration Morphine Sulfate 2 mg 08/04/18 23:08 08/08/18 21:49 Morphine IV 2 mg Q4H PRN Administration Pain, Moderate (4-6) Ondansetron HCl 4 mg 08/04/18 23:08 Zofran IV Q8H PRN Nausea And Vomiting Sodium Chloride 10 ml 08/05/18 10:00 08/09/18 21:29 Sodium Chloride Flush Syringe 10 Ml IV 10 ml BID MARLI Administration Sodium Chloride 10 ml 08/04/18 23:08 08/06/18 06:11 Sodium Chloride Flush Syringe 10 Ml IV 10 ml PRN PRN Administration LINE FLUSH
[2018-08-10 09:07] LABS: Calcium 8.2 mg/dL (8.4-10.2)
[2018-08-10 09:08] LABS: Basophils # (Auto) 0.1 K/mm3 (0.0-0.1); Basophils % (Auto) 0.7 % (0.0-1.8); Eosinophils # (Auto) 0.3 K/mm3 (0.0-0.4); Eosinophils % (Auto) 2.7 % (0.0-4.3); Hematocrit 22.5 % (30.3-42.9); Hemoglobin 7.1 gm/dl (10.1-14.3); Lymphocytes # (Auto) 1.8 K/mm3 (1.2-5.4); Mean Corpuscular HGB Conc 32 % (30-34); Mean Corpuscular Volume 81 fl (79-97); Monocytes % (Auto) 9.9 % (0.0-7.3); Platelet Count 360 K/mm3 (140-440); Red Blood Count 2.78 M/mm3 (3.65-5.03); Red Cell Distribution Width 16.1 % (13.2-15.2)
[2018-08-10] MEDS: PULMICORT IH SCH ×2 (09:38→21:36)
[2018-08-10] MEDS: DUONEB *Not for PRN Use IH SCH ×3 (09:39→21:36)
[2018-08-10] MEDS: BROVANA NEBU IH SCH ×2 (09:39→21:36)
[2018-08-10] MEDS: NORVASC PO SCH (10:33)
[2018-08-10] MEDS: PEPCID PO SCH ×2 (10:33→21:57)
[2018-08-10] MEDS: HEPARIN SUB-Q SCH ×2 (10:33→21:57)
[2018-08-10] MEDS: COZAAR PO SCH (10:33)
[2018-08-10] MEDS: SODIUM CHLORIDE FLUSH SYRINGE 10 ML IV SCH ×2 (10:39→21:58)
--- NOTE | 2018-08-10 11:50 | Progress Note ---
Assessment and Plan 1. Acute kidney injury: Likely the STEVIE is related to proeinuria / nephrotic syndrome. Renal US was negative for [place]. Creatinine level plateaued. Monitor renal function. Avoid nephrotoxic agents. Meds dosage based on GFR. 2. Suspected Nephrotic syndrome: Urine protein creatinine ratio 3.12 Suspect Diabetic nephropathy vs Minimal change vs FSGS. Unlikely Nephritis. NUBIA, ANCA, C3, C4 and SPEP results pending. 3. FEN: Hyperkalemia, improved. Volume overload, IV Lasix. Monitor lytes. 4. HFpEF: Followed by Cards. 5. R breast mass: Seen by Heme-Onc. 6. Pleural effusion: S/p thoracentesis. 7. Anemia: POA. Subjective Date of service: 08/10/18 Principal diagnosis: anemia and breast mass Interval history: Patient was seen and examined at the bedside. Doing ok. Objective - Vital Signs Vital signs: Vital Signs - 12hr 08/09/18 08/10/18 08/10/18 23:57 04:38 08:39 Temperature 98.3 F 98.0 F 98.2 F Pulse Rate 96 H 88 90 Pulse Rate [ Anterior Bilateral Throughout] Pulse Rate [ From Monitor] Respiratory 18 18 14 Rate Respiratory Rate [Anterior Bilateral Throughout] Blood Pressure 137/67 117/53 145/71 O2 Sat by Pulse 100 100 98 Oximetry 08/10/18 08/10/18 08/10/18 09:37 09:59 10:00 Temperature Pulse Rate Pulse Rate [ 98 H 98 H Anterior Bilateral Throughout] Pulse Rate [ 90 From Monitor] Respiratory 14 Rate Respiratory 20 17 Rate [Anterior Bilateral Throughout] Blood Pressure O2 Sat by Pulse 100 98 Oximetry - General Appearance General appearance: well-developed, well-nourished, appears stated age, obese, other (not in distress) EENT: ATNC, PERRL, mucous membranes moist, hearing intact, vision intact Neck: supple Respiratory: Present: Clear to Ascultation, Decreased Breath Sounds Cardiology: regular, S1S2, no murmurs Gastrointestinal: normoactive bowel sounds, no tenderness, no distended, obese Integumentary: no rash Neurologic: no focal deficit, no asterixis Musculoskeletal: other (1 to 2+ edema of both LEs noted) Psychiatric: cooperative - Lab 08/10/18 08:30 08/10/18 08:30 Most recent lab results Calcium 8.2 mg/dL (8.4-10.2) L 08/10/18 08:30 Phosphorus 3.90 mg/dL (2.5-4.5) 08/06/18 05:39 Magnesium 1.80 mg/dL (1.7-2.3) 08/07/18 08:30 100.4 mg/dL (0.1-20.0) H 08/06/18 13:25 75 mmol/L 08/06/18 13:25 313 mg/dL (5-11.8) H 08/06/18 13:25 Medications & Allergies - Medications Allergies/Adverse Reactions: Allergies No Known Allergies Allergy (Unverified 08/04/18 12:53) Home Medications: Home Medications Medication Instructions Recorded Confirmed Last Taken Type No Known Home Medications [No 08/04/18 08/04/18 Unknown History Reported Home Medications] Active Medications: Generic Name Dose Route Start Last Admin Trade Name Freq PRN Reason Stop Dose Admin Acetaminophen 650 mg 08/04/18 23:08 Tylenol PO Q4H PRN Pain MILD(1-3)/Fever >100.5/GANT Albuterol/Ipratropium 1 ampul 08/05/18 14:00 08/10/18 09:39 Duoneb *Not For Prn Use* IH 1 ampul TIDRT MARLI Administration Amlodipine Besylate 10 mg 08/05/18 10:00 08/10/18 10:33 Norvasc PO 10 mg QDAY MARLI Administration Arformoterol Tartrate 15 mcg 08/08/18 20:00 08/10/18 09:39 Brovana Nebu IH 15 mcg Q12HRT MARLI Administration Budesonide 0.5 mg 08/08/18 20:00 08/10/18 09:38 Pulmicort IH 0.5 mg Q12HRT MARLI Administration Famotidine 20 mg 08/05/18 10:00 08/10/18 10:33 Pepcid PO 20 mg BID MARLI Administration Furosemide 40 mg 08/05/18 06:00 08/10/18 08:58 Lasix IV 40 mg 0600,1800 MARLI Administration Heparin Sodium (Porcine) 5,000 unit 08/10/18 10:00 08/10/18 10:33 Heparin SUB-Q 5,000 unit Q12HR MARLI Administration Hydralazine HCl 10 mg 08/04/18 23:10 08/08/18 20:41 Apresoline IV 10 mg Q3H PRN Administration Blood Pressure Insulin Human Isoph/Insulin Regular 8 unit 08/08/18 17:00 08/10/18 08:00 Humulin 70/30 SUB-Q Not Given BIDDIAB MARLI Insulin Human Lispro 0 unit 08/05/18 07:30 08/10/18 07:30 Humalog SUB-Q Not Given ACHS [facility] Protocol Losartan Potassium 100 mg 08/04/18 23:12 08/10/18 10:33 Cozaar PO 100 mg QDAY MARLI Administration Morphine Sulfate 2 mg 08/04/18 23:08 08/08/18 21:49 Morphine IV 2 mg Q4H PRN Administration Pain, Moderate (4-6) Ondansetron HCl 4 mg 08/04/18 23:08 Zofran IV Q8H PRN Nausea And Vomiting Sodium Chloride 10 ml 08/05/18 10:00 08/10/18 10:39 Sodium Chloride Flush Syringe 10 Ml IV 10 ml BID MARLI Administration Sodium Chloride 10 ml 08/04/18 23:08 08/06/18 06:11 Sodium Chloride Flush Syringe 10 Ml IV 10 ml PRN PRN Administration LINE FLUSH
--- NOTE | 2018-08-10 13:41 | Progress Note ---
Assessment and Plan Acute hypoxic respiratory failure, present on admission - Due to acute exacerbation of CHF and bilateral pleural effusion - Continue supplemental O2 and Herman as tolerated - repeat CT pending - consulted pulmonary, will follow recommendation - Braething status much improved following thoracentesis / Hypertensive emergency BP improving Patient given multiple doses of IV hydralazine to bring the blood pressure down Losartan Coreg and amlodipine added, IV hydralazine every 3 hours when necessary /Acute exacerbation of CHF (congestive heart failure) with preserved EF Patient initiated on IV Lasix and potassium Echocardiogram during this admission and previous echo at [facility] showed EF was 60-65% Cardiology following, cont lasix iv for now / Right breast mass, consulted oncology - CT scan showed a right breast mass involving skin - Planned for biopsy, IR consulted /b/l Pleural effusion, - Moderate to severe pleural effusion bilaterally - Status post left-sided thoracentesis 08/07/18 drained 1.4 L of fluid - - s/p right-sided thoracentesis on 08/08/18 drained 900cc - will follow ascitic fluid studym - pending /Type 2 diabetes mellitus hemoglobin A1c 10.8 SSI and long acting Coverage for now /hyperkalemia, due to STEVIE, resolved / STEVIE (acute kidney injury) Patient on Lasix, Cr stable Nephrology consult requested because the Lasix can increase the creatinine /Anemia of chronic disease and Fe deficiency replaced iron, transfuse if Hb <7 / DVT prophylaxis On Lovenox and GI prophylaxis Brief History: 68-year-old woman with a history of Diabetes, Hypertension and a Right Breast Mass for several years who presents to the hospital with shortness of breath and bilateral lower extremity edema with huge breast mass. Chest x-ray reveals bilateral pleural effusion, with at least moderate severity effusion on the left. The lung crooks show mild interstitial edema. EKG is normal sinus rhythm with no acute changes, essentially normal ECG. Radiological data: EKG: report reviewed (sinus tachycardia probable left ventricular enlargement and left atrial enlargement) Chest x-ray: Mild CHF. CT chest: Marked generalized edema. Right retroareolar 6 cm masslike area and overlying skin thickening. Bilateral moderate to large pleural effusions with adjacent c ompressive/dependent atelectasis, left more than right. Diffuse interstitial thickening could be interstitial edema and/or chronic disease. Mild emphysema in the upper lobes. Hospitalist Physical exam: GENERAL: well-developed and well-nourished elderly AAF lying on bed appeared to be in no discomfort. HEENT: Normocephalic. Atraumatic. No conjunctival congestion or icterus. Patient has moist mucous membranes. NECK: Supple. Trachea midline. CHEST/LUNGS: Clear to auscultated bilaterally, breathing nonlabored. No wheezes crackles or rhonchi. right sided breast mass HEART/CARDIOVASCULAR: Regular in rate and rhythm. S1 and S2 positive. ABDOMEN: Abdomen is soft, nontender. Patient has normal bowel sounds. SKIN: There is no rash. Warm and dry. NEURO: No focal motor deficit. Follows command. MUSCULOSKELETAL: No joint effusion or tenderness. EXTRIMITY: No edema, no cyanosis or clubbing. PSYCH: Cooperative. Subjective Date of service: 08/09/18 Principal diagnosis: anemia and breast mass Interval history: Patient seen and examined. Medical records and medication list reviewed. No acute event overnight noted by the RN. Patient states her breathing much improved. Patient is tolerating diet. Patient is still on N/C oxygen, pending path report Objective - Constitutional Vitals: Vital Signs - 12hr 08/10/18 08/10/18 08/10/18 04:38 08:39 09:37 Temperature 98.0 F 98.2 F Pulse Rate 88 90 Pulse Rate [ 98 H Anterior Bilateral Throughout] Pulse Rate [ From Monitor] Respiratory 18 14 Rate Respiratory 20 Rate [Anterior Bilateral Throughout] Blood Pressure 117/53 145/71 O2 Sat by Pulse 100 98 Oximetry 08/10/18 08/10/18 08/10/18 09:59 10:00 12:38 Temperature 98.5 F Pulse Rate 85 100 H Pulse Rate [ 98 H Anterior Bilateral Throughout] Pulse Rate [ 90 From Monitor] Respiratory 14 20 Rate Respiratory 17 Rate [Anterior Bilateral Throughout] Blood Pressure 134/61 O2 Sat by Pulse 100 98 92 Oximetry - Labs CBC & Chem 7: 08/10/18 08:30 08/10/18 08:30 Labs: Abnormal lab results 08/09/18 08/09/18 08/10/18 Range/Units 15:37 20:54 08:30 RBC 2.78 L (3.65-5.03) M/mm3 Hgb 7.1 L (10.1-14.3) gm/dl Hct 22.5 L (30.3-42.9) % MCH 26 L (28-32) pg RDW 16.1 H (13.2-15.2) % [place] % (Auto) 9.9 H (0.0-7.3) % [place] # 1.0 H (0.0-0.8) K/mm3 Chloride (98-107) mmol/L BUN (7-17) mg/dL Creatinine (0.7-1.2) mg/dL POC Glucose 243 H 158 H (70-105) Calcium (8.4-10.2) mg/dL 08/10/18 08/10/18 Range/Units 08:30 12:12 RBC (3.65-5.03) M/mm3 Hgb (10.1-14.3) gm/dl Hct (30.3-42.9) % MCH (28-32) pg RDW (13.2-15.2) % [place] % (Auto) (0.0-7.3) % [place] # (0.0-0.8) K/mm3 Chloride 108.7 H (98-107) mmol/L BUN 34 H (7-17) mg/dL Creatinine 1.5 H (0.7-1.2) mg/dL POC Glucose 191 H (70-105) Calcium 8.2 L (8.4-10.2) mg/dL
--- NOTE | 2018-08-10 13:42 | Progress Note ---
Assessment and Plan Acute hypoxic respiratory failure, present on admission - Due to acute exacerbation of CHF and bilateral pleural effusion - Continue supplemental O2 and Herman as tolerated - repeat CT pending - consulted pulmonary, will follow recommendation - Braething status much improved following thoracentesis / Hypertensive emergency BP improving Patient given multiple doses of IV hydralazine to bring the blood pressure down Losartan Coreg and amlodipine added, IV hydralazine every 3 hours when necessary /Acute exacerbation of CHF (congestive heart failure) with preserved EF Patient initiated on IV Lasix and potassium Echocardiogram during this admission and previous echo at [facility] showed EF was 60-65% Cardiology following, cont lasix iv for now / Right breast mass, consulted oncology - CT scan showed a right breast mass involving skin - Planned for biopsy, IR consulted /b/l Pleural effusion, - Moderate to severe pleural effusion bilaterally - Status post left-sided thoracentesis 08/07/18 drained 1.4 L of fluid - - s/p right-sided thoracentesis on 08/08/18 drained 900cc - will follow ascitic fluid study - pending /Type 2 diabetes mellitus hemoglobin A1c 10.8 SSI and long acting Coverage for now /hyperkalemia, due to STEVIE, resolved / STEVIE (acute kidney injury) Patient on Lasix, Cr stable Nephrology consult requested because the Lasix can increase the creatinine /Anemia of chronic disease and Fe deficiency replaced iron, transfuse if Hb <7 / DVT prophylaxis On Lovenox and GI prophylaxis Brief History: 68-year-old woman with a history of Diabetes, Hypertension and a Right Breast Mass for several years who presents to the hospital with shortness of breath and bilateral lower extremity edema with huge breast mass. Chest x-ray reveals bilateral pleural effusion, with at least moderate severity effusion on the left. The lung crooks show mild interstitial edema. EKG is normal sinus rhythm with no acute changes, essentially normal ECG. Radiological data: EKG: report reviewed (sinus tachycardia probable left ventricular enlargement and left atrial enlargement) Chest x-ray: Mild CHF. CT chest: Marked generalized edema. Right retroareolar 6 cm masslike area and overlying skin thickening. Bilateral moderate to large pleural effusions with adjacent co mpressive/dependent atelectasis, left more than right. Diffuse interstitial thickening could be interstitial edema and/or chronic disease. Mild emphysema in the upper lobes. Hospitalist Physical exam: GENERAL: well-developed and well-nourished elderly AAF lying on bed appeared to be in no discomfort. HEENT: Normocephalic. Atraumatic. No conjunctival congestion or icterus. Patient has moist mucous membranes. NECK: Supple. Trachea midline. CHEST/LUNGS: Clear to auscultated bilaterally, breathing nonlabored. No wheezes crackles or rhonchi. right sided breast mass HEART/CARDIOVASCULAR: Regular in rate and rhythm. S1 and S2 positive. ABDOMEN: Abdomen is soft, nontender. Patient has normal bowel sounds. SKIN: There is no rash. Warm and dry. NEURO: No focal motor deficit. Follows command. MUSCULOSKELETAL: No joint effusion or tenderness. EXTRIMITY: No edema, no cyanosis or clubbing. PSYCH: Cooperative. Subjective Date of service: 08/10/18 Principal diagnosis: anemia and breast mass Interval history: Patient seen and examined. Medical records and medication list reviewed. No acute event overnight noted by the RN. Patient states her breathing much improved. Patient is tolerating diet. Patient is still on N/C oxygen, pending path report Objective - Constitutional Vitals: Vital Signs - 12hr 08/10/18 08/10/18 08/10/18 04:38 08:39 09:37 Temperature 98.0 F 98.2 F Pulse Rate 88 90 Pulse Rate [ 98 H Anterior Bilateral Throughout] Pulse Rate [ From Monitor] Respiratory 18 14 Rate Respiratory 20 Rate [Anterior Bilateral Throughout] Blood Pressure 117/53 145/71 O2 Sat by Pulse 100 98 Oximetry 08/10/18 08/10/18 08/10/18 09:59 10:00 12:38 Temperature 98.5 F Pulse Rate 85 100 H Pulse Rate [ 98 H Anterior Bilateral Throughout] Pulse Rate [ 90 From Monitor] Respiratory 14 20 Rate Respiratory 17 Rate [Anterior Bilateral Throughout] Blood Pressure 134/61 O2 Sat by Pulse 100 98 92 Oximetry - Labs CBC & Chem 7: 08/11/18 05:04 08/11/18 05:04 Labs: Abnormal lab results 08/09/18 08/09/18 08/10/18 Range/Units 15:37 20:54 08:30 RBC 2.78 L (3.65-5.03) M/mm3 Hgb 7.1 L (10.1-14.3) gm/dl Hct 22.5 L (30.3-42.9) % MCH 26 L (28-32) pg RDW 16.1 H (13.2-15.2) % [place] % (Auto) 9.9 H (0.0-7.3) % [place] # 1.0 H (0.0-0.8) K/mm3 Chloride (98-107) mmol/L BUN (7-17) mg/dL Creatinine (0.7-1.2) mg/dL POC Glucose 243 H 158 H (70-105) Calcium (8.4-10.2) mg/dL 08/10/18 08/10/18 Range/Units 08:30 12:12 RBC (3.65-5.03) M/mm3 Hgb (10.1-14.3) gm/dl Hct (30.3-42.9) % MCH (28-32) pg RDW (13.2-15.2) % [place] % (Auto) (0.0-7.3) % [place] # (0.0-0.8) K/mm3 Chloride 108.7 H (98-107) mmol/L BUN 34 H (7-17) mg/dL Creatinine 1.5 H (0.7-1.2) mg/dL POC Glucose 191 H (70-105) Calcium 8.2 L (8.4-10.2) mg/dL
--- NOTE | 2018-08-10 15:06 | Progress Note ---
Assessment and Plan - Patient Problems (1) Edema Current Visit: Yes Status: Acute Plan to address problem: We will continue diuretic therapy for fluid overload and bilateral lower extremity edema. Workup of right breast mass is in progress. The patient has also had thoracentesis for left pleural effusion. Subjective Date of service: 08/10/18 Principal diagnosis: anemia and breast mass Interval history: Patient is comfortable, no chest pain and no shortness of breath. She is now on nasal O2. Her lower extremity edema appears to be slowly resolving. Objective Vital Signs Temp Pulse Pulse Pulse Pulse Resp Resp 08/10/18 12:38 98.5 F 100 H 20 08/10/18 10:00 85 98 H 90 14 17 08/10/18 09:59 08/10/18 09:37 98 H 20 08/10/18 08:39 98.2 F 90 14 08/10/18 04:38 98.0 F 88 18 08/09/18 23:57 98.3 F 96 H 18 08/09/18 22:50 105 H 22 08/09/18 20:45 105 H 105 H 18 08/09/18 20:25 106 H 20 08/09/18 20:11 105 H 20 08/09/18 19:28 98.3 F 104 H 18 08/09/18 19:22 99 H 08/09/18 18:05 97 H 18 08/09/18 15:34 98.0 F 104 H 20 08/09/18 15:15 96 H 18 BP Pulse Ox 08/10/18 12:38 134/61 92 08/10/18 10:00 98 08/10/18 09:59 100 08/10/18 09:37 08/10/18 08:39 145/71 98 08/10/18 04:38 117/53 100 08/09/18 23:57 137/67 100 08/09/18 22:50 98 08/09/18 20:45 100 08/09/18 20:25 08/09/18 20:11 100 08/09/18 19:28 151/67 99 08/09/18 19:22 08/09/18 18:05 08/09/18 15:34 139/76 93 08/09/18 15:15 - Physical Examination General: No Apparent Distress HEENT: Positive: PERRL Neck: Positive: trachea midline Cardiac: Positive: Reg Rate and Rhythm Lungs: Positive: Decreased Breath Sounds Neuro: Positive: Grossly Intact Abdomen: Positive: Soft Skin: Positive: Clear Extremities: Present: +3 Edema - Labs and Meds CBC 08/10/18 Range/Units 08:30 WBC 10.1 (4.5-11.0) K/mm3 RBC 2.78 L (3.65-5.03) M/mm3 Hgb 7.1 L (10.1-14.3) gm/dl Hct 22.5 L (30.3-42.9) % Plt Count 360 (140-440) K/mm3 Lymph # 1.8 (1.2-5.4) K/mm3 [place] # 1.0 H (0.0-0.8) K/mm3 Eos # 0.3 (0.0-0.4) K/mm3 Baso # 0.1 (0.0-0.1) K/mm3 Comprehensive Metabolic Panel 08/10/18 Range/Units 08:30 Sodium 141 (137-145) mmol/L Potassium 4.8 (3.6-5.0) mmol/L Chloride 108.7 H (98-107) mmol/L Carbon Dioxide 22 (22-30) mmol/L BUN 34 H (7-17) mg/dL Creatinine 1.5 H (0.7-1.2) mg/dL Glucose 66 (65-100) mg/dL Calcium 8.2 L (8.4-10.2) mg/dL - Imaging and Cardiology EKG: report reviewed (sinus tachycardia probable left ventricular enlargement and left atrial enlargement)
[2018-08-10 17:34] LABS: Myeloperoxidase Antibody <1.0 AI (<1.0)
[2018-08-10] MEDS: MORPHINE IV PRN (20:14)
--- NOTE | 2018-08-10 21:29 | Progress Note ---
Assessment and Plan Patient awake. Resting on 4 litres O2 ,O2 saturation 94%. Patient says breathing better. - Patient Problems (1) Acute and chronic respiratory failure Current Visit: Yes Status: Acute Plan to address problem: On 4 litres O2. Albuterol/atrovent aerosol treatments q 6 hours prn for shortness of breath. Brovanna/Budesonide aerosol treatments q 12 hours. Recommend DVT prophylaxis S/C Heparin. Continue famotidine. (2) Acute exacerbation of CHF (congestive heart failure) Current Visit: Yes Status: Acute Qualifiers: Heart failure type: combined systolic and diastolic Qualified Code(s): I50.43 - Acute on chronic combined systolic (congestive) and diastolic (congestive) heart failure Plan to address problem: Management as per primary care and cardiology. (3) STEVIE (acute kidney injury) Current Visit: Yes Status: Acute Plan to address problem: Managent as per Neohrology. (4) Breast mass in female Current Visit: Yes Status: Acute Plan to address problem: Management as per primary care and surgery and oncology. (5) Hypertensive emergency Current Visit: Yes Status: Acute Plan to address problem: Management as per primary care. (6) Anemia Current Visit: Yes Status: Chronic Qualifiers: Anemia type: unspecified type Qualified Code(s): D64.9 - Anemia, unspec ified Plan to address problem: Management as per primary care and hematology. (7) Type 2 diabetes mellitus Current Visit: Yes Status: Chronic Qualifiers: Diabetes mellitus senior living insulin use: without supervisor intermediates use Plan to address problem: Management as per primary care. Subjective Date of service: 08/10/18 Principal diagnosis: anemia and breast mass Interval history: Patient awake. Resting on 4 litres O2 ,O2 saturation 94%. Patient says breathing better. Objective Vital Signs - 12hr 08/10/18 08/10/18 08/10/18 09:37 09:59 10:00 Temperature Pulse Rate 85 Pulse Rate [ 98 H 98 H Anterior Bilateral Throughout] Pulse Rate [ 90 From Monitor] Respiratory 14 Rate Respiratory 20 17 Rate [Anterior Bilateral Throughout] Blood Pressure O2 Sat by Pulse 100 98 Oximetry 08/10/18 08/10/18 08/10/18 12:38 16:17 16:25 Temperature 98.5 F 98.3 F Pulse Rate 100 H 100 H Pulse Rate [ 103 H Anterior Bilateral Throughout] Pulse Rate [ From Monitor] Respiratory 20 20 Rate Respiratory 20 Rate [Anterior Bilateral Throughout] Blood Pressure 134/61 142/75 O2 Sat by Pulse 92 98 Oximetry 08/10/18 08/10/18 08/10/18 16:30 18:06 19:20 Temperature Pulse Rate 99 H 106 H Pulse Rate [ 107 H Anterior Bilateral Throughout] Pulse Rate [ From Monitor] Respiratory 22 Rate Respiratory 19 Rate [Anterior Bilateral Throughout] Blood Pressure 167/83 O2 Sat by Pulse 91 Oximetry 08/10/18 08/10/18 19:21 20:14 Temperature 98.3 F Pulse Rate Pulse Rate [ Anterior Bilateral Throughout] Pulse Rate [ From Monitor] Respiratory 20 Rate Respiratory Rate [Anterior Bilateral Throughout] Blood Pressure O2 Sat by Pulse Oximetry Constitutional: no acute distress, alert Eyes: non-icteric ENT: oropharynx moist Neck: supple, no lymphadenopathy Ascultation: Left: diminished breath sounds Cardiovascular: regular rate and rhythm Gastrointestinal: normoactive bowel sounds, soft Integumentary: normal Extremities: no cyanosis, no edema Neurologic: normal mental status, non-focal exam, pupils equal and round, CN II- XII normal Psychiatric: mood appropriate CBC and BMP: 08/11/18 05:04 08/11/18 05:04 ABG, PT/INR, D-dimer: ABG POC ABG pH 7.349 (7.35-7.45) L 08/08/18 18:27 POC ABG pCO2 42.3 (35-45) 08/08/18 18:27 POC ABG pO2 60 (80-105) L 08/08/18 18:27 POC ABG HCO3 23.3 (22-26 mml/L) 08/08/18 18:27 POC ABG Total CO2 25 (23-27mmol/L) 08/08/18 18:27 POC ABG O2 Sat 89 08/08/18 18:27 PT/INR, D-dimer PT 13.7 Sec. (12.2-14.9) 08/04/18 13:30 INR 0.99 (0.87-1.13) 08/04/18 13:30 3043.96 ng/mlDDU (0-234) H 08/08/18 16:02 Abnormal lab findings: Abnormal Labs 08/04/18 08/04/18 08/04/18 13:30 13:30 23:15 WBC 11.4 H RBC 3.55 L Hgb 9.0 L Hct 27.8 L MCV 78 L MCH 25 L RDW 15.6 H [place] % (Auto) [place] # Baso # 0.2 H Seg Neutrophils % 72.9 H Seg Neutrophils # 8.3 H D-Dimer POC ABG pH POC ABG pO2 Potassium Chloride 107.9 H Carbon Dioxide BUN 23 H Creatinine 1.4 H Glucose 183 H POC Glucose Hemoglobin A1c 10.9 H Calcium Magnesium Iron TIBC Transferrin Alkaline Phosphatase 132 H Lactate Dehydrogenase Total Creatine Kinase 164 H CK-MB (CK-2) 4.3 H NT-Pro-B Natriuret Pep 4330 H Albumin 2.3 L Vitamin B12 Urine Creatinine Urine Total Protein 08/05/18 08/05/18 08/05/18 00:35 00:35 05:15 WBC RBC 3.30 L Hgb 8.4 L Hct 26.0 L MCV MCH 25 L RDW 15.7 H [place] % (Auto) 9.4 H [place] # 0.9 H Baso # Seg Neutrophils % Seg Neutrophils # D-Dimer POC ABG pH POC ABG pO2 Potassium Chloride Carbon Dioxide BUN Creatinine Glucose POC Glucose Hemoglobin A1c Calcium Magnesium Iron 17 L TIBC 159 L Transferrin 145 L Alkaline Phosphatase Lactate Dehydrogenase Total Creatine Kinase CK-MB (CK-2) NT-Pro-B Natriuret Pep Albumin Vitamin B12 > 2000 H Urine Creatinine Urine Total Protein 08/05/18 08/05/18 08/05/18 05:15 12:15 21:30 WBC RBC Hgb Hct MCV MCH RDW [place] % (Auto) [place] # Baso # Seg Neutrophils % Seg Neutrophils # D-Dimer POC ABG pH POC ABG pO2 Potassium Chloride 111.1 H Carbon Dioxide 20 L BUN 23 H Creatinine 1.4 H Glucose 136 H POC Glucose 180 H 205 H Hemoglobin A1c Calcium Magnesium Iron TIBC Transferrin Alkaline Phosphatase Lactate Dehydrogenase Total Creatine Kinase CK-MB (CK-2) NT-Pro-B Natriuret Pep Albumin 2.0 L Vitamin B12 Urine Creatinine Urine Total Protein 08/06/18 08/06/18 08/06/18 05:39 07:20 12:25 WBC RBC Hgb Hct MCV MCH RDW [place] % (Auto) [place] # Baso # Seg Neutrophils % Seg Neutrophils # D-Dimer POC ABG pH POC ABG pO2 Potassium Chloride 110.6 H Carbon Dioxide BUN 29 H Creatinine 1.5 H Glucose 140 H POC Glucose 133 H 286 H Hemoglobin A1c Calcium Magnesium 1.60 L Iron TIBC Transferrin Alkaline Phosphatase Lactate Dehydrogenase Total Creatine Kinase CK-MB (CK-2) NT-Pro-B Natriuret Pep Albumin Vitamin B12 Urine Creatinine Urine Total Protein 08/06/18 08/06/18 08/06/18 13:25 16:22 22:03 WBC RBC Hgb Hct MCV MCH RDW [place] % (Auto) [place] # Baso # Seg Neutrophils % Seg Neutrophils # D-Dimer POC ABG pH POC ABG pO2 Potassium Chloride Carbon Dioxide BUN Creatinine Glucose POC Glucose 261 H 293 H Hemoglobin A1c Calcium Magnesium Iron TIBC Transferrin Alkaline Phosphatase Lactate Dehydrogenase Total Creatine Kinase CK-MB (CK-2) NT-Pro-B Natriuret Pep Albumin Vitamin B12 Urine Creatinine 100.4 H Urine Total Protein 313 H 08/07/18 08/07/18 08/07/18 07:21 08:30 10:59 WBC RBC Hgb Hct MCV MCH RDW [place] % (Auto) [place] # Baso # Seg Neutrophils % Seg Neutrophils # D-Dimer POC ABG pH POC ABG pO2 Potassium 5.2 H Chloride 109.7 H Carbon Dioxide BUN 30 H Creatinine 1.6 H Glucose 162 H POC Glucose 180 H 191 H Hemoglobin A1c Calcium Magnesium Iron TIBC Transferrin Alkaline Phosphatase Lactate Dehydrogenase Total Creatine Kinase CK-MB (CK-2) NT-Pro-B Natriuret Pep Albumin Vitamin B12 Urine Creatinine Urine Total Protein 08/07/18 08/07/18 08/08/18 15:49 20:31 05:18 WBC RBC 2.89 L Hgb 7.3 L Hct 22.8 L MCV MCH 25 L RDW 16.0 H [place] % (Auto) 9.1 H [place] # Baso # Seg Neutrophils % Seg Neutrophils # D-Dimer POC ABG pH POC ABG pO2 Potassium Chloride Carbon Dioxide BUN Creatinine Glucose POC Glucose 267 H 238 H Hemoglobin A1c Calcium Magnesium Iron TIBC Transferrin Alkaline Phosphatase Lactate Dehydrogenase Total Creatine Kinase CK-MB (CK-2) NT-Pro-B Natriuret Pep Albumin Vitamin B12 Urine Creatinine Urine Total Protein 08/08/18 08/08/18 08/08/18 05:18 07:10 11:17 WBC RBC Hgb Hct MCV MCH RDW [place] % (Auto) [place] # Baso # Seg Neutrophils % Seg Neutrophils # D-Dimer POC ABG pH POC ABG pO2 Potassium Chloride 110.4 H Carbon Dioxide BUN 31 H Creatinine 1.6 H Glucose 164 H POC Glucose 168 H 131 H Hemoglobin A1c Calcium 8.1 L Magnesium Iron TIBC Transferrin Alkaline Phosphatase Lactate Dehydrogenase Total Creatine Kinase CK-MB (CK-2) NT-Pro-B Natriuret Pep Albumin Vitamin B12 Urine Creatinine Urine Total Protein 08/08/18 08/08/18 08/08/18 15:28 16:02 16:02 WBC RBC Hgb Hct MCV MCH RDW [place] % (Auto) [place] # Baso # Seg Neutrophils % Seg Neutrophils # D-Dimer 3043.96 H POC ABG pH POC ABG pO2 Potassium Chloride Carbon Dioxide BUN Creatinine Glucose POC Glucose 237 H Hemoglobin A1c Calcium Magnesium Iron TIBC Transferrin Alkaline Phosphatase Lactate Dehydrogenase 327 H Total Creatine Kinase CK-MB (CK-2) NT-Pro-B Natriuret Pep Albumin Vitamin B12 Urine Creatinine Urine Total Protein 08/08/18 08/08/18 08/09/18 18:27 20:52 04:24 WBC RBC Hgb Hct MCV MCH RDW [place] % (Auto) [place] # Baso # Seg Neutrophils % Seg Neutrophils # D-Dimer POC ABG pH 7.349 L POC ABG pO2 60 L Potassium Chloride 110.3 H Carbon Dioxide BUN 34 H Creatinine 1.5 H Glucose 152 H POC Glucose 221 H Hemoglobin A1c Calcium Magnesium Iron TIBC Transferrin Alkaline Phosphatase Lactate Dehydrogenase Total Creatine Kinase CK-MB (CK-2) NT-Pro-B Natriuret Pep Albumin Vitamin B12 Urine Creatinine Urine Total Protein 08/09/18 08/09/18 08/09/18 08:00 11:32 15:37 WBC RBC Hgb Hct MCV MCH RDW [place] % (Auto) [place] # Baso # Seg Neutrophils % Seg Neutrophils # D-Dimer POC ABG pH POC ABG pO2 Potassium Chloride Carbon Dioxide BUN Creatinine Glucose POC Glucose 123 H 246 H 243 H Hemoglobin A1c Calcium Magnesium Iron TIBC Transferrin Alkaline Phosphatase Lactate Dehydrogenase Total Creatine Kinase CK-MB (CK-2) NT-Pro-B Natriuret Pep Albumin Vitamin B12 Urine Creatinine Urine Total Protein 08/09/18 08/10/18 08/10/18 20:54 08:30 08:30 WBC RBC 2.78 L Hgb 7.1 L Hct 22.5 L MCV MCH 26 L RDW 16.1 H [place] % (Auto) 9.9 H [place] # 1.0 H Baso # Seg Neutrophils % Seg Neutrophils # D-Dimer POC ABG pH POC ABG pO2 Potassium Chloride 108.7 H Carbon Dioxide BUN 34 H Creatinine 1.5 H Glucose POC Glucose 158 H Hemoglobin A1c Calcium 8.2 L Magnesium Iron TIBC Transferrin Alkaline Phosphatase Lactate Dehydrogenase Total Creatine Kinase CK-MB (CK-2) NT-Pro-B Natriuret Pep Albumin Vitamin B12 Urine Creatinine Urine Total Protein 08/10/18 08/10/18 08/10/18 12:12 16:29 21:22 WBC RBC Hgb Hct MCV MCH RDW [place] % (Auto) [place] # Baso # Seg Neutrophils % Seg Neutrophils # D-Dimer POC ABG pH POC ABG pO2 Potassium Chloride Carbon Dioxide BUN Creatinine Glucose POC Glucose 191 H 164 H 201 H Hemoglobin A1c Calcium Magnesium Iron TIBC Transferrin Alkaline Phosphatase Lactate Dehydrogenase Total Creatine Kinase CK-MB (CK-2) NT-Pro-B Natriuret Pep Albumin Vitamin B12 Urine Creatinine Urine Total Protein
[2018-08-10 22:20] LABS: Albumin 1.8 g/dL (3.8-4.8); Gamma Globulin 1.8 g/dL (0.8-1.7)
[2018-08-11] MEDS: MORPHINE IV PRN (05:21)
[2018-08-11] MEDS: LASIX IV SCH ×2 (05:21→18:36)
[2018-08-11 06:13] LABS: Calcium 8.6 mg/dL (8.4-10.2)
[2018-08-11 06:18] LABS: Hematocrit 21.8 % (30.3-42.9)
--- NOTE | 2018-08-11 06:57 | Hem/Onc Progress Note ---
Assessment and Plan - Patient Problems (1) Breast mass in female Current Visit: Yes Status: Acute Subjective Date of service: 08/11/18 Objective - Constitutional Vitals: Last Vital Signs Temp 97.9 F 08/11/18 04:11 Pulse 90 08/11/18 04:10 Resp 22 08/11/18 05:21 BP 134/67 08/11/18 04:10 Pulse Ox 96 08/11/18 04:10 - Labs Lab Results: Laboratory Results - last 24 hr 08/06/18 08/06/18 08/06/18 05:39 05:39 05:39 WBC RBC Hgb Hct MCV MCH MCHC RDW Plt Count Lymph % (Auto) [place] % (Auto) Eos % (Auto) Baso % (Auto) Lymph # [place] # Eos # Baso # Seg Neutrophils % Seg Neutrophils # Sodium Potassium Chloride Carbon Dioxide Anion Gap BUN Creatinine Estimated GFR BUN/Creatinine Ratio Glucose POC Glucose Calcium Magnesium Serum Total Protein 5.7 L Albumin 1.8 L Cwfcf-1-Elnuetvbc 0.4 H Apxnv-7-Olwqrkaww 0.9 Beta Globulins 0.4 Gamma Globulins 1.8 H Abnorm Protein Band 1 see below PEP Interpretation see below H Proteinase 3 (PR3) Ab <1.0 Myeloperoxidase Ab <1.0 Complement C3 159 08/10/18 08/10/18 08/10/18 08:30 08:30 08:46 WBC 10.1 RBC 2.78 L Hgb 7.1 L Hct 22.5 L MCV 81 MCH 26 L MCHC 32 RDW 16.1 H Plt Count 360 Lymph % (Auto) 18.0 [place] % (Auto) 9.9 H Eos % (Auto) 2.7 Baso % (Auto) 0.7 Lymph # 1.8 [place] # 1.0 H Eos # 0.3 Baso # 0.1 Seg Neutrophils % 68.7 Seg Neutrophils # 6.9 Sodium 141 Potassium 4.8 Chloride 108.7 H Carbon Dioxide 22 Anion Gap 15 BUN 34 H Creatinine 1.5 H Estimated GFR 42 BUN/Creatinine Ratio 23 Glucose 66 POC Glucose 76 Calcium 8.2 L Magnesium Serum Total Protein Albumin Hcqqm-8-Ljjfbhexl Lwdor-6-Rxboboztm Beta Globulins Gamma Globulins Abnorm Protein Band 1 PEP Interpretation Proteinase 3 (PR3) Ab Myeloperoxidase Ab Complement C3 08/10/18 08/10/18 08/10/18 12:12 16:29 21:22 WBC RBC Hgb Hct MCV MCH MCHC RDW Plt Count Lymph % (Auto) [place] % (Auto) Eos % (Auto) Baso % (Auto) Lymph # [place] # Eos # Baso # Seg Neutrophils % Seg Neutrophils # Sodium Potassium Chloride Carbon Dioxide Anion Gap BUN Creatinine Estimated GFR BUN/Creatinine Ratio Glucose POC Glucose 191 H 164 H 201 H Calcium Magnesium Serum Total Protein Albumin Ffnit-5-Kxgtpetzy Uejnd-8-Hyysadmps Beta Globulins Gamma Globulins Abnorm Protein Band 1 PEP Interpretation Proteinase 3 (PR3) Ab Myeloperoxidase Ab Complement C3 08/11/18 08/11/18 05:04 05:04 WBC RBC Hgb 7.0 L Hct 21.8 L MCV MCH MCHC RDW Plt Count Lymph % (Auto) [place] % (Auto) Eos % (Auto) Baso % (Auto) Lymph # [place] # Eos # Baso # Seg Neutrophils % Seg Neutrophils # Sodium 145 Potassium 4.7 Chloride 110.1 H Carbon Dioxide 22 Anion Gap 18 BUN 33 H Creatinine 1.6 H Estimated GFR 39 BUN/Creatinine Ratio 21 Glucose 114 H POC Glucose Calcium 8.6 Magnesium 1.60 L Serum Total Protein Albumin Lqnuh-8-Jlpzcrymo Whzju-4-Xxjlhqmny Beta Globulins Gamma Globulins Abnorm Protein Band 1 PEP Interpretation Proteinase 3 (PR3) Ab Myeloperoxidase Ab Complement C3 Medications & Allergies - Medications Allergies/Adverse Reactions: Allergies No Known Allergies Allergy (Unverified 08/04/18 12:53) Home Medications: Home Medications Medication Instructions Recorded Confirmed Last Taken Type No Known Home Medications [No 08/04/18 08/04/18 Unknown History Reported Home Medications] Active Medications: Generic Name Dose Route Start Last Admin Trade Name Melani PRN Reason Stop Dose Admin Acetaminophen 650 mg 08/04/18 23:08 Tylenol PO Q4H PRN Pain MILD(1-3)/Fever >100.5/GANT Albuterol/Ipratropium 1 ampul 08/05/18 14:00 08/10/18 21:36 Duoneb *Not For Prn Use* IH 1 ampul TIDRT MARLI Administration Amlodipine Besylate 10 mg 08/05/18 10:00 08/10/18 10:33 Norvasc PO 10 mg QDAY MARLI Administration Arformoterol Tartrate 15 mcg 08/08/18 20:00 08/10/18 21:36 Brovana Nebu IH 15 mcg Q12HRT MARLI Administration Budesonide 0.5 mg 08/08/18 20:00 08/10/18 21:36 Pulmicort IH 0.5 mg Q12HRT MARLI Administration Famotidine 20 mg 08/05/18 10:00 08/10/18 21:57 Pepcid PO 20 mg BID MARLI Administration Furosemide 40 mg 08/05/18 06:00 08/11/18 05:21 Lasix IV 40 mg 0600,1800 MARLI Administration Heparin Sodium (Porcine) 5,000 unit 08/10/18 10:00 08/10/18 21:57 Heparin SUB-Q 5,000 unit Q12HR MARLI Administration Hydralazine HCl 10 mg 08/04/18 23:10 08/08/18 20:41 Apresoline IV 10 mg Q3H PRN Administration Blood Pressure Insulin Human Isoph/Insulin Regular 8 unit 08/08/18 17:00 08/10/18 16:27 Humulin 70/30 SUB-Q Not Given [facility] Insulin Human Lispro 0 unit 08/05/18 07:30 08/10/18 21:58 Humalog SUB-Q 3 unit ACHS MARLI Administration Protocol Losartan Potassium 100 mg 08/04/18 23:12 08/10/18 10:33 Cozaar PO 100 mg QDAY MARLI Administration Morphine Sulfate 2 mg 08/04/18 23:08 08/11/18 05:21 Morphine IV 2 mg Q4H PRN Administration Pain, Moderate (4-6) Ondansetron HCl 4 mg 08/04/18 23:08 Zofran IV Q8H PRN Nausea And Vomiting Sodium Chloride 10 ml 08/05/18 10:00 08/10/18 21:58 Sodium Chloride Flush Syringe 10 Ml IV 10 ml BID MARLI Administration Sodium Chloride 10 ml 08/04/18 23:08 08/06/18 06:11 Sodium Chloride Flush Syringe 10 Ml IV 10 ml PRN PRN Administration LINE FLUSH
--- NOTE | 2018-08-11 06:57 | Hem/Onc Progress Note ---
Assessment and Plan 1. Right breast mass, likely neoplastic. 2. Short of breath. 3. Low albumin. 4. Anemia. Serum iron is low. B12 is normal. We will follow. 5. Diabetes. 6. Hypertension. 7. I will follow the patient during inpatient stay and then in the clinic. radiology of the chest, 8. renal impairement - nephrology following CT chest - non contrast - breast mass at [facility] in Mar 2018 - CA 27-29 was high IR following low albumin thoracentesis done iv iron trial pl fluid - path prelim - atypical cells - stains pending - Patient Problems (1) Breast mass in female Current Visit: Yes Status: Acute Subjective Date of service: 08/11/18 Principal diagnosis: rt breast mass Interval history: on CPAP Objective - Constitutional Vitals: Last Vital Signs Temp 97.9 F 08/11/18 04:11 Pulse 90 08/11/18 04:10 Resp 22 08/11/18 05:21 BP 134/67 08/11/18 04:10 Pulse Ox 96 08/11/18 04:10 Pain Intensity (0-10): denies any pain General appearance: no acute distress Performance status: 4-completely disabled - EENT Eyes: EOM intact ENT: hearing intact Lymph node exam: negative cervical - Respiratory Respiratory effort: Positive: other (on support) Respiratory: bilateral: diminished - Cardiovascular Heart Sounds: Present: S1 & S2 Extremity abnormal: edema - Gastrointestinal General gastrointestinal: Present: soft, non-tender Rectal Exam: deferred - Genitourinary Female genitourinary: Present: deferred - Integumentary Integumentary: warm - Musculoskeletal Musculoskeletal: generalized weakness - Neurologic Neurologic: moves all extremities - Labs Lab Results: Laboratory Results - last 24 hr 08/06/18 08/06/18 08/06/18 05:39 05:39 05:39 WBC RBC Hgb Hct MCV MCH MCHC RDW Plt Count Lymph % (Auto) Liberty % (Auto) Eos % (Auto) Baso % (Auto) Lymph # Liberty # Eos # Baso # Seg Neutrophils % Seg Neutrophils # Sodium Potassium Chloride Carbon Dioxide Anion Gap BUN Creatinine Estimated GFR BUN/Creatinine Ratio Glucose POC Glucose Calcium Magnesium Serum Total Protein 5.7 L Albumin 1.8 L Aindi-5-Fdlzsutux 0.4 H Eeldr-1-Tdvqiqhwx 0.9 Beta Globulins 0.4 Gamma Globulins 1.8 H Abnorm Protein Band 1 see below PEP Interpretation see below H Proteinase 3 (PR3) Ab <1.0 Myeloperoxidase Ab <1.0 Complement C3 159 08/10/18 08/10/18 08/10/18 08:30 08:30 08:46 WBC 10.1 RBC 2.78 L Hgb 7.1 L Hct 22.5 L MCV 81 MCH 26 L MCHC 32 RDW 16.1 H Plt Count 360 Lymph % (Auto) 18.0 Liberty % (Auto) 9.9 H Eos % (Auto) 2.7 Baso % (Auto) 0.7 Lymph # 1.8 Liberty # 1.0 H Eos # 0.3 Baso # 0.1 Seg Neutrophils % 68.7 Seg Neutrophils # 6.9 Sodium 141 Potassium 4.8 Chloride 108.7 H Carbon Dioxide 22 Anion Gap 15 BUN 34 H Creatinine 1.5 H Estimated GFR 42 BUN/Creatinine Ratio 23 Glucose 66 POC Glucose 76 Calcium 8.2 L Magnesium Serum Total Protein Albumin Uiobq-8-Ohalrznqo Vfffk-5-Qbvevpasf Beta Globulins Gamma Globulins Abnorm Protein Band 1 PEP Interpretation Proteinase 3 (PR3) Ab Myeloperoxidase Ab Complement C3 08/10/18 08/10/18 08/10/18 12:12 16:29 21:22 WBC RBC Hgb Hct MCV MCH MCHC RDW Plt Count Lymph % (Auto) Liberty % (Auto) Eos % (Auto) Baso % (Auto) Lymph # Liberty # Eos # Baso # Seg Neutrophils % Seg Neutrophils # Sodium Potassium Chloride Carbon Dioxide Anion Gap BUN Creatinine Estimated GFR BUN/Creatinine Ratio Glucose POC Glucose 191 H 164 H 201 H Calcium Magnesium Serum Total Protein Albumin Zxhvp-4-Xhetluzcf Qnhub-5-Fhesmlpmh Beta Globulins Gamma Globulins Abnorm Protein Band 1 PEP Interpretation Proteinase 3 (PR3) Ab Myeloperoxidase Ab Complement C3 08/11/18 08/11/18 05:04 05:04 WBC RBC Hgb 7.0 L Hct 21.8 L MCV MCH MCHC RDW Plt Count Lymph % (Auto) Liberty % (Auto) Eos % (Auto) Baso % (Auto) Lymph # Liberty # Eos # Baso # Seg Neutrophils % Seg Neutrophils # Sodium 145 Potassium 4.7 Chloride 110.1 H Carbon Dioxide 22 Anion Gap 18 BUN 33 H Creatinine 1.6 H Estimated GFR 39 BUN/Creatinine Ratio 21 Glucose 114 H POC Glucose Calcium 8.6 Magnesium 1.60 L Serum Total Protein Albumin Rxhdp-8-Rduzkzksc Ybdno-8-Ahjrtviyd Beta Globulins Gamma Globulins Abnorm Protein Band 1 PEP Interpretation Proteinase 3 (PR3) Ab Myeloperoxidase Ab Complement C3 Medications & Allergies - Medications Allergies/Adverse Reactions: Allergies No Known Allergies Allergy (Unverified 08/04/18 12:53) Home Medications: Home Medications Medication Instructions Recorded Confirmed Last Taken Type No Known Home Medications [No 08/04/18 08/04/18 Unknown History Reported Home Medications] Active Medications: Generic Name Dose Route Start Last Admin Trade Name Freq PRN Reason Stop Dose Admin Acetaminophen 650 mg 08/04/18 23:08 Tylenol PO Q4H PRN Pain MILD(1-3)/Fever >100.5/GANT Albuterol/Ipratropium 1 ampul 08/05/18 14:00 08/10/18 21:36 Duoneb *Not For Prn Use* IH 1 ampul TIDRT MARLI Administration Amlodipine Besylate 10 mg 08/05/18 10:00 08/10/18 10:33 Norvasc PO 10 mg QDAY MARLI Administration Arformoterol Tartrate 15 mcg 08/08/18 20:00 08/10/18 21:36 Brovana Nebu IH 15 mcg Q12HRT MARLI Administration Budesonide 0.5 mg 08/08/18 20:00 08/10/18 21:36 Pulmicort IH 0.5 mg Q12HRT MARLI Administration Famotidine 20 mg 08/05/18 10:00 08/10/18 21:57 Pepcid PO 20 mg BID MARLI Administration Furosemide 40 mg 08/05/18 06:00 08/11/18 05:21 Lasix IV 40 mg 0600,1800 MARLI Administration Heparin Sodium (Porcine) 5,000 unit 08/10/18 10:00 08/10/18 21:57 Heparin SUB-Q 5,000 unit Q12HR MARLI Administration Hydralazine HCl 10 mg 08/04/18 23:10 08/08/18 20:41 Apresoline IV 10 mg Q3H PRN Administration Blood Pressure Insulin Human Isoph/Insulin Regular 8 unit 08/08/18 17:00 08/10/18 16:27 Humulin 70/30 SUB-Q Not Given BIDDIAB MARLI Insulin Human Lispro 0 unit 08/05/18 07:30 08/10/18 21:58 Humalog SUB-Q 3 unit ACHS MARLI Administration Protocol Losartan Potassium 100 mg 08/04/18 23:12 08/10/18 10:33 Cozaar PO 100 mg QDAY MARLI Administration Morphine Sulfate 2 mg 08/04/18 23:08 08/11/18 05:21 Morphine IV 2 mg Q4H PRN Administration Pain, Moderate (4-6) Ondansetron HCl 4 mg 08/04/18 23:08 Zofran IV Q8H PRN Nausea And Vomiting Sodium Chloride 10 ml 08/05/18 10:00 08/10/18 21:58 Sodium Chloride Flush Syringe 10 Ml IV 10 ml BID MARLI Administration Sodium Chloride 10 ml 08/04/18 23:08 08/06/18 06:11 Sodium Chloride Flush Syringe 10 Ml IV 10 ml PRN PRN Administration LINE FLUSH
[2018-08-11] MEDS ORDERED: NACL 0.9% 500 ML 500 ML IV NR (08:30)
[2018-08-11] MEDS: HumaLOG SUB-Q SCH ×4 (09:04→22:36)
[2018-08-11] MEDS: PEPCID PO SCH ×2 (09:18→22:35)
[2018-08-11] MEDS: NORVASC PO SCH (09:18)
[2018-08-11] MEDS: MAG-OX PO SCH ×2 (09:18→22:35)
--- NOTE | 2018-08-11 09:18 | Progress Note ---
Assessment and Plan Fluid overload Heart failure with a preserved ejection fraction 60-65% by echo 04/2018 at [facility] Bilateral pleural effusion s/p thoracentesis Acute renal failure Diabetes Hypertension Hx of Right Breast mass Anemia Noncompliant with medications and follow up Normal LVEF 60-65% by echocardiogram this admission. Conservative cardiac management. Subjective Date of service: 08/11/18 Principal diagnosis: anemia and breast mass Interval history: No reported cardiac events overnight. Objective Vital Signs Temp Pulse Pulse Pulse Resp Resp Resp 08/11/18 07:41 98.0 F 88 20 08/11/18 05:21 22 08/11/18 04:11 97.9 F 08/11/18 04:10 90 20 08/11/18 00:15 97 H 21 08/10/18 23:51 97.8 F 08/10/18 23:45 98 H 20 08/10/18 22:00 105 H 20 08/10/18 21:44 08/10/18 21:43 110 H 20 08/10/18 21:33 104 H 20 08/10/18 20:14 20 08/10/18 19:21 98.3 F 08/10/18 19:20 106 H 22 08/10/18 18:06 99 H 08/10/18 16:30 107 H 19 08/10/18 16:25 98.3 F 100 H 20 08/10/18 16:17 103 H 20 08/10/18 12:38 98.5 F 100 H 20 08/10/18 10:00 85 98 H 90 14 17 08/10/18 09:59 08/10/18 09:37 98 H 20 BP Pulse Ox 08/11/18 07:41 167/78 98 08/11/18 05:21 08/11/18 04:11 08/11/18 04:10 134/67 96 08/11/18 00:15 98 08/10/18 23:51 08/10/18 23:45 139/66 94 08/10/18 22:00 96 08/10/18 21:44 94 08/10/18 21:43 08/10/18 21:33 08/10/18 20:14 08/10/18 19:21 08/10/18 19:20 167/83 91 08/10/18 18:06 08/10/18 16:30 08/10/18 16:25 142/75 98 08/10/18 16:17 08/10/18 12:38 134/61 92 08/10/18 10:00 98 08/10/18 09:59 100 08/10/18 09:37 - Physical Examination General: No Apparent Distress HEENT: Positive: PERRL Neck: Positive: trachea midline Neuro: Positive: Grossly Intact Abdomen: Positive: Soft Skin: Positive: Clear Extremities: Present: +3 Edema - Labs and Meds CBC 08/11/18 Range/Units 05:04 Hgb 7.0 L (10.1-14.3) gm/dl Hct 21.8 L (30.3-42.9) % Comprehensive Metabolic Panel 08/06/18 08/11/18 Range/Units 05:39 05:04 Sodium 145 (137-145) mmol/L Potassium 4.7 (3.6-5.0) mmol/L Chloride 110.1 H (98-107) mmol/L Carbon Dioxide 22 (22-30) mmol/L BUN 33 H (7-17) mg/dL Creatinine 1.6 H (0.7-1.2) mg/dL Glucose 114 H (65-100) mg/dL Calcium 8.6 (8.4-10.2) mg/dL Albumin 1.8 L (3.8-4.8) g/dL - Imaging and Cardiology EKG: report reviewed (sinus tachycardia probable left ventricular enlargement and left atrial enlargement)
[2018-08-11] MEDS: COZAAR PO SCH (09:19)
[2018-08-11] MEDS: SODIUM CHLORIDE FLUSH SYRINGE 10 ML IV SCH ×2 (09:22→22:36)
[2018-08-11] MEDS: HEPARIN SUB-Q SCH ×2 (09:44→22:36)
--- NOTE | 2018-08-11 09:54 | Progress Note ---
Assessment and Plan 1. Acute kidney injury: Likely the STEVIE is related to proeinuria / nephrotic syndrome. Renal US was negative for [place]. Creatinine level plateaued. Monitor renal function. Avoid nephrotoxic agents. Meds dosage based on GFR. 2. Suspected Nephrotic syndrome: Urine protein creatinine ratio 3.12 Suspect Diabetic nephropathy vs Minimal change vs FSGS. Unlikely Nephritis. ANCA, C3, C4 and SPEP are negative. NUBIA is pending. 3. FEN: Hyperkalemia, improved. Volume overload, IV Lasix. Monitor lytes. 4. HFpEF: Followed by Cards. 5. R breast mass: Seen by Heme-Onc. 6. Pleural effusion: S/p thoracentesis. 7. Anemia: POA. Subjective Date of service: 08/11/18 Principal diagnosis: anemia and breast mass Interval history: Patient was seen and examined at the bedside. Doing ok. Objective - Vital Signs Vital signs: Vital Signs - 12hr 08/10/18 08/10/18 08/10/18 22:00 23:45 23:51 Temperature 97.8 F Pulse Rate 105 H 98 H Respiratory 20 Rate Respiratory 20 Rate [Back] Blood Pressure 139/66 O2 Sat by Pulse 96 94 Oximetry 08/11/18 08/11/18 08/11/18 00:15 04:10 04:11 Temperature 97.9 F Pulse Rate 97 H 90 Respiratory 21 20 Rate Respiratory Rate [Back] Blood Pressure 134/67 O2 Sat by Pulse 98 96 Oximetry 08/11/18 08/11/18 08/11/18 05:21 07:41 09:18 Temperature 98.0 F Pulse Rate 88 88 Respiratory 22 20 Rate Respiratory Rate [Back] Blood Pressure 167/78 167/78 O2 Sat by Pulse 98 Oximetry 08/11/18 09:19 Temperature Pulse Rate 88 Respiratory Rate Respiratory Rate [Back] Blood Pressure 167/78 O2 Sat by Pulse Oximetry - General Appearance General appearance: well-developed, well-nourished, appears stated age, obese, other (not in distress) EENT: ATNC, PERRL, mucous membranes moist, hearing intact, vision intact Neck: supple Respiratory: Present: Clear to Ascultation Cardiology: regular, S1S2, no murmurs Gastrointestinal: normoactive bowel sounds, no tenderness, no distended, obese Integumentary: no rash Neurologic: no focal deficit, alert and oriented x3 Musculoskeletal: other (1 to 2+ edema of both LEs noted) - Lab 08/11/18 05:04 08/11/18 05:04 Most recent lab results Calcium 8.6 mg/dL (8.4-10.2) 08/11/18 05:04 Phosphorus 3.90 mg/dL (2.5-4.5) 08/06/18 05:39 Magnesium 1.60 mg/dL (1.7-2.3) L 08/11/18 05:04 100.4 mg/dL (0.1-20.0) H 08/06/18 13:25 75 mmol/L 08/06/18 13:25 313 mg/dL (5-11.8) H 08/06/18 13:25 Medications & Allergies - Medications Allergies/Adverse Reactions: Allergies No Known Allergies Allergy (Unverified 08/04/18 12:53) Home Medications: Home Medications Medication Instructions Recorded Confirmed Last Taken Type No Known Home Medications [No 08/04/18 08/04/18 Unknown History Reported Home Medications] Active Medications: Generic Name Dose Route Start Last Admin Trade Name Freq PRN Reason Stop Dose Admin Acetaminophen 650 mg 08/04/18 23:08 Tylenol PO Q4H PRN Pain MILD(1-3)/Fever >100.5/GANT Albuterol/Ipratropium 1 ampul 08/05/18 14:00 08/10/18 21:36 Duoneb *Not For Prn Use* IH 1 ampul TIDRT MARLI Administration Amlodipine Besylate 10 mg 08/05/18 10:00 08/11/18 09:18 Norvasc PO 10 mg QDAY MARLI Administration Arformoterol Tartrate 15 mcg 08/08/18 20:00 08/10/18 21:36 Brovana Nebu IH 15 mcg Q12HRT MARLI Administration Budesonide 0.5 mg 08/08/18 20:00 08/10/18 21:36 Pulmicort IH 0.5 mg Q12HRT MARLI Administration Famotidine 20 mg 08/05/18 10:00 08/11/18 09:18 Pepcid PO 20 mg BID MARLI Administration Furosemide 40 mg 08/05/18 06:00 08/11/18 05:21 Lasix IV 40 mg 0600,1800 MARLI Administration Heparin Sodium (Porcine) 5,000 unit 08/10/18 10:00 08/11/18 09:44 Heparin SUB-Q 5,000 unit Q12HR MARLI Administration Hydralazine HCl 10 mg 08/04/18 23:10 08/08/18 20:41 Apresoline IV 10 mg Q3H PRN Administration Blood Pressure Sodium Chloride 500 mls @ 0 mls/hr 08/11/18 08:30 Nacl 0.9% 500 Ml IV 08/11/18 10:00 ONCE NR As Directed Insulin Human Isoph/Insulin Regular 8 unit 08/08/18 17:00 08/11/18 09:21 Humulin 70/30 SUB-Q 8 unit BIDDIAB MARLI Administration Insulin Human Lispro 0 unit 08/05/18 07:30 08/11/18 09:04 Humalog SUB-Q Not Given ACHS [facility] Protocol Losartan Potassium 100 mg 08/04/18 23:12 08/11/18 09:19 Cozaar PO 100 mg QDAY MARLI Administration Magnesium Oxide 400 mg 08/11/18 10:00 08/11/18 09:18 Mag-Ox PO 400 mg BID MARLI Administration Morphine Sulfate 2 mg 08/04/18 23:08 08/11/18 05:21 Morphine IV 2 mg Q4H PRN Administration Pain, Moderate (4-6) Ondansetron HCl 4 mg 08/04/18 23:08 Zofran IV Q8H PRN Nausea And Vomiting Sodium Chloride 10 ml 08/05/18 10:00 08/11/18 09:22 Sodium Chloride Flush Syringe 10 Ml IV 10 ml BID MARLI Administration Sodium Chloride 10 ml 08/04/18 23:08 08/06/18 06:11 Sodium Chloride Flush Syringe 10 Ml IV 10 ml PRN PRN Administration LINE FLUSH
[2018-08-11] MEDS: PULMICORT IH SCH ×2 (09:56→20:35)
[2018-08-11] MEDS: DUONEB *Not for PRN Use IH SCH ×3 (09:57→20:35)
[2018-08-11] MEDS: BROVANA NEBU IH SCH ×2 (09:57→20:35)
--- NOTE | 2018-08-11 14:13 | Progress Note ---
Assessment and Plan Acute hypoxic respiratory failure, present on admission - Due to acute exacerbation of CHF and bilateral pleural effusion - Continue supplemental O2 and Herman as tolerated - repeat CT pending - consulted pulmonary, will follow recommendation - Braething status much improved following thoracentesis - will need home O2 on discharge / Hypertensive emergency BP improving Patient given multiple doses of IV hydralazine to bring the blood pressure down Losartan Coreg and amlodipine added, IV hydralazine every 3 hours when necessary /Acute exacerbation of CHF (congestive heart failure) with preserved EF Patient initiated on IV Lasix and potassium Echocardiogram during this admission and previous echo at [facility] showed EF was 60-65% Cardiology following, cont lasix iv for now / Right breast mass, consulted oncology - CT scan showed a right breast mass involving skin - Planned for biopsy, breast surgeon consulted -likely will see the pt on Saturday /b/l Pleural effusion, - Moderate to severe pleural effusion bilaterally - Status post left-sided thoracentesis 08/07/18 drained 1.4 L of fluid - s/p right-sided thoracentesis on 08/08/18 drained 900cc - pleural fluid study - showed atypical cells only /Type 2 diabetes mellitus hemoglobin A1c 10.8 SSI and long acting Coverage for now /hyperkalemia, due to STEVIE, resolved / STEVIE (acute kidney injury) Patient on Lasix, Cr stable Nephrology consult requested because the Lasix can increase the creatinine /Anemia of chronic disease and Fe deficiency replaced iron, transfuse one unit prbc as Hb 7.0 / DVT prophylaxis On Lovenox and GI prophylaxis Brief History: 68-year-old woman with a history of Diabetes, Hypertension and a Right Breast Mass for several years who presents to the hospital with shortness of breath and bilateral lower extremity edema with huge breast mass. Chest x-ray reveals bilateral pleural effusion, with at least moderate severity effusion on the left. The lung crooks show mild interstitial edema. EKG is normal sinus rhythm with no acute changes, essentially normal ECG. Radiological data: EKG: report reviewed (sinus tachycardia probable left ventricular enlargement and left atrial enlargement) Chest x-ray: Mild CHF. CT chest: Marked generalized edema. Right retroareolar 6 cm masslike area and overlying skin thickening. Bilateral moderate to large pleural effusions with adjacent compressive/dependent atelectasis, left more than right. Diffuse interstitial thickening could be interstitial edema and/or chronic disease. Mild emphysema in the upper lobes. Hospitalist Physical exam: GENERAL: well-developed and well-nourished elderly AAF lying on bed appeared to be in no discomfort. HEENT: Normocephalic. Atraumatic. No conjunctival congestion or icterus. Patient has moist mucous membranes. NECK: Supple. Trachea midline. CHEST/LUNGS: Clear to auscultated bilaterally, breathing nonlabored. No wheezes crackles or rhonchi. right sided breast mass HEART/CARDIOVASCULAR: Regular in rate and rhythm. S1 and S2 positive. ABDOMEN: Abdomen is soft, nontender. Patient has normal bowel sounds. SKIN: There is no rash. Warm and dry. NEURO: No focal motor deficit. Follows command. MUSCULOSKELETAL: No joint effusion or tenderness. EXTRIMITY: No edema, no cyanosis or clubbing. PSYCH: Cooperative. Subjective Date of service: 08/11/18 Principal diagnosis: anemia and breast mass Interval history: Patient seen and examined. Medical records and medication list reviewed. No acute event overnight noted by the RN. Patient states her breathing much improved. Patient is tolerating diet. Patient is still on N/C oxygen, Hb 7.0 today Objective - Constitutional Vitals: Vital Signs - 12hr 08/11/18 08/11/18 08/11/18 04:10 04:11 05:21 Temperature 97.9 F Pulse Rate 90 Pulse Rate [ Anterior Bilateral Throughout] Respiratory 20 22 Rate Respiratory Rate [Anterior Bilateral Throughout] Blood Pressure 134/67 O2 Sat by Pulse 96 Oximetry 08/11/18 08/11/18 08/11/18 07:41 09:18 09:19 Temperature 98.0 F Pulse Rate 88 88 88 Pulse Rate [ Anterior Bilateral Throughout] Respiratory 20 Rate Respiratory Rate [Anterior Bilateral Throughout] Blood Pressure 167/78 167/78 167/78 O2 Sat by Pulse 98 Oximetry 08/11/18 08/11/18 08/11/18 09:56 10:00 10:06 Temperature Pulse Rate 90 Pulse Rate [ 95 H 94 H Anterior Bilateral Throughout] Respiratory Rate Respiratory 20 20 Rate [Anterior Bilateral Throughout] Blood Pressure O2 Sat by Pulse 94 96 Oximetry 08/11/18 08/11/18 08/11/18 11:46 12:33 12:47 Temperature 97.9 F 98.4 F 98.4 F Pulse Rate 93 H 92 H 92 H Pulse Rate [ Anterior Bilateral Throughout] Respiratory 18 18 18 Rate Respiratory Rate [Anterior Bilateral Throughout] Blood Pressure 144/66 134/71 140/64 O2 Sat by Pulse 95 93 93 Oximetry 08/11/18 08/11/18 12:48 13:57 Temperature 98.3 F Pulse Rate 82 Pulse Rate [ 95 H Anterior Bilateral Throughout] Respiratory 18 Rate Respiratory 20 Rate [Anterior Bilateral Throughout] Blood Pressure 135/64 O2 Sat by Pulse 95 Oximetry - Labs CBC & Chem 7: 08/11/18 05:04 08/11/18 05:04 Labs: Abnormal lab results 08/06/18 08/10/18 08/10/18 Range/Units 05:39 16:29 21:22 Hgb (10.1-14.3) gm/dl Hct (30.3-42.9) % Chloride (98-107) mmol/L BUN (7-17) mg/dL Creatinine (0.7-1.2) mg/dL Glucose (65-100) mg/dL POC Glucose 164 H 201 H (70-105) Magnesium (1.7-2.3) mg/dL Serum Total Protein 5.7 L (6.1-8.1) g/dL Albumin 1.8 L (3.8-4.8) g/dL Xxiwg-0-Bdwjuoqtx 0.4 H (0.2-0.3) g/dL Gamma Globulins 1.8 H (0.8-1.7) g/dL PEP Interpretation see below H Crossmatch 08/11/18 08/11/18 08/11/18 Range/Units 05:04 05:04 07:16 Hgb 7.0 L (10.1-14.3) gm/dl Hct 21.8 L (30.3-42.9) % Chloride 110.1 H (98-107) mmol/L BUN 33 H (7-17) mg/dL Creatinine 1.6 H (0.7-1.2) mg/dL Glucose 114 H (65-100) mg/dL POC Glucose 117 H (70-105) Magnesium 1.60 L (1.7-2.3) mg/dL Serum Total Protein (6.1-8.1) g/dL Albumin (3.8-4.8) g/dL Emscp-5-Yjixgyaxs (0.2-0.3) g/dL Gamma Globulins (0.8-1.7) g/dL PEP Interpretation Crossmatch 08/11/18 08/11/18 Range/Units 09:36 11:23 Hgb (10.1-14.3) gm/dl Hct (30.3-42.9) % Chloride (98-107) mmol/L BUN (7-17) mg/dL Creatinine (0.7-1.2) mg/dL Glucose (65-100) mg/dL POC Glucose 395 H (70-105) Magnesium (1.7-2.3) mg/dL Serum Total Protein (6.1-8.1) g/dL Albumin (3.8-4.8) g/dL Nwvvv-3-Iyuxkktve (0.2-0.3) g/dL Gamma Globulins (0.8-1.7) g/dL PEP Interpretation Crossmatch See Detail
--- NOTE | 2018-08-11 15:03 | XRay Report ---
AP CHEST: HISTORY: Pleural effusion A moderate left pleural effusion is identified which has increased by 1 or 2 rib levels since 08/08/18. Mild cardiomegaly and pulmonary venous congestion are stable. No right pleural effusion or obvious infiltrate. Compressive atelectasis at the left lung base. IMPRESSION: Mild volume overload/CHF as described.
--- NOTE | 2018-08-11 16:49 | Progress Note ---
Assessment and Plan Patient awake. Resting on 5 litres O2 ,O2 saturation 95%. Patient says breathing better. Recommend consult surgery for right breast lesion. - Patient Problems (1) Acute and chronic respiratory failure Current Visit: Yes Status: Acute Plan to address problem: On 5 litres O2. Albuterol/atrovent aerosol treatments q 6 hours prn for shortness of breath. Brovanna/Budesonide aerosol treatments q 12 hours. Continue S/C Heparin. Continue famotidine. (2) Acute exacerbation of CHF (congestive heart failure) Current Visit: Yes Status: Acute Qualifiers: Heart failure type: combined systolic and diastolic Qualified Code(s): I50.43 - Acute on chronic combined systolic (congestive) and diastolic (congestive) heart failure Plan to address problem: Management as per primary care and cardiology. (3) STEVIE (acute kidney injury) Current Visit: Yes Status: Acute Plan to address problem: Managent as per Neohrology. (4) Breast mass in female Current Visit: Yes Status: Acute Plan to address problem: Management as per primary care and surgery and oncology. (5) Hypertensive emergency Current Visit: Yes Status: Acute Plan to address problem: Management as per primary care. (6) Anemia Current Visit: Yes Status: Chronic Qualifiers: Anemia type: unspecified type Qualified Code(s): D64.9 - Anemia, unspecified Plan to address problem: Management as per primary care and hematology. (7) Type 2 diabetes mellitus Current Visit: Yes Status: Chronic Qualifiers: Diabetes mellitus long-term insulin use: without long-term use Plan to address problem: Management as per primary care. (8) Pleural effusion, left Current Visit: Yes Status: Acute Plan to address problem: Recommend ultrasound of left chest. Subjective Date of service: 08/11/18 Principal diagnosis: anemia and breast mass Interval history: Patient awake. Resting on 5 litres O2 ,O2 saturation 95%. Patient says breathing better. Recommend consult surgery for right breast lesion. Objective Vital Signs - 12hr 08/11/18 08/11/18 08/11/18 05:21 07:41 09:18 Temperature 98.0 F Pulse Rate 88 88 Pulse Rate [ Anterior Bilateral Throughout] Respiratory 22 20 Rate Respiratory Rate [Anterior Bilateral Throughout] Blood Pressure 167/78 167/78 O2 Sat by Pulse 98 Oximetry 08/11/18 08/11/18 08/11/18 09:19 09:56 10:00 Temperature Pulse Rate 88 90 Pulse Rate [ 95 H Anterior Bilateral Throughout] Respiratory Rate Respiratory 20 Rate [Anterior Bilateral Throughout] Blood Pressure 167/78 O2 Sat by Pulse 94 96 Oximetry 08/11/18 08/11/18 08/11/18 10:06 11:46 12:33 Temperature 97.9 F 98.4 F Pulse Rate 93 H 92 H Pulse Rate [ 94 H Anterior Bilateral Throughout] Respiratory 18 18 Rate Respiratory 20 Rate [Anterior Bilateral Throughout] Blood Pressure 144/66 134/71 O2 Sat by Pulse 95 93 Oximetry 08/11/18 08/11/18 08/11/18 12:47 12:48 13:57 Temperature 98.4 F 98.3 F Pulse Rate 92 H 82 Pulse Rate [ 95 H Anterior Bilateral Throughout] Respiratory 18 18 Rate Respiratory 20 Rate [Anterior Bilateral Throughout] Blood Pressure 140/64 135/64 O2 Sat by Pulse 93 95 Oximetry 08/11/18 14:07 Temperature Pulse Rate Pulse Rate [ 96 H Anterior Bilateral Throughout] Respiratory Rate Respiratory 20 Rate [Anterior Bilateral Throughout] Blood Pressure O2 Sat by Pulse Oximetry Constitutional: no acute distress, alert Eyes: non-icteric ENT: oropharynx moist Neck: supple, no lymphadenopathy Ascultation: Left: diminished breath sounds Cardiovascular: regular rate and rhythm Gastrointestinal: normoactive bowel sounds, soft Integumentary: normal Extremities: no cyanosis, no edema Neurologic: normal mental status, non-focal exam, pupils equal and round, CN II- XII normal Psychiatric: mood appropriate CBC and BMP: 08/11/18 05:04 08/11/18 05:04 ABG, PT/INR, D-dimer: ABG POC ABG pH 7.349 (7.35-7.45) L 08/08/18 18:27 POC ABG pCO2 42.3 (35-45) 08/08/18 18:27 POC ABG pO2 60 (80-105) L 08/08/18 18:27 POC ABG HCO3 23.3 (22-26 mml/L) 08/08/18 18:27 POC ABG Total CO2 25 (23-27mmol/L) 08/08/18 18:27 POC ABG O2 Sat 89 08/08/18 18:27 PT/INR, D-dimer PT 13.7 Sec. (12.2-14.9) 08/04/18 13:30 INR 0.99 (0.87-1.13) 08/04/18 13:30 3043.96 ng/mlDDU (0-234) H 08/08/18 16:02 Abnormal lab findings: Abnormal Labs 08/04/18 08/04/18 08/04/18 13:30 13:30 23:15 WBC 11.4 H RBC 3.55 L Hgb 9.0 L Hct 27.8 L MCV 78 L MCH 25 L RDW 15.6 H Sum[place] % (Auto) [place] # Baso # 0.2 H Seg Neutrophils % 72.9 H Seg Neutrophils # 8.3 H D-Dimer POC ABG pH POC ABG pO2 Potassium Chloride 107.9 H Carbon Dioxide BUN 23 H Creatinine 1.4 H Glucose 183 H POC Glucose Hemoglobin A1c 10.9 H Calcium Magnesium Iron TIBC Transferrin Alkaline Phosphatase 132 H Lactate Dehydrogenase Total Creatine Kinase 164 H CK-MB (CK-2) 4.3 H NT-Pro-B Natriuret Pep 4330 H Serum Total Protein Albumin 2.3 L Iaubs-0-Iwmyltlwo Gamma Globulins PEP Interpretation Vitamin B12 Urine Creatinine Urine Total Protein Crossmatch 08/05/18 08/05/18 08/05/18 00:35 00:35 05:15 WBC RBC 3.30 L Hgb 8.4 L Hct 26.0 L MCV MCH 25 L RDW 15.7 H [place] % (Auto) 9.4 H [place] # 0.9 H Baso # Seg Neutrophils % Seg Neutrophils # D-Dimer POC ABG pH POC ABG pO2 Potassium Chloride Carbon Dioxide BUN Creatinine Glucose POC Glucose Hemoglobin A1c Calcium Magnesium Iron 17 L TIBC 159 L Transferrin 145 L Alkaline Phosphatase Lactate Dehydrogenase Total Creatine Kinase CK-MB (CK-2) NT-Pro-B Natriuret Pep Serum Total Protein Albumin Aypay-7-Wbwatvgwp Gamma Globulins PEP Interpretation Vitamin B12 > 2000 H Urine Creatinine Urine Total Protein Crossmatch 08/05/18 08/05/18 08/05/18 05:15 12:15 21:30 WBC RBC Hgb Hct MCV MCH RDW [place] % (Auto) [place] # Baso # Seg Neutrophils % Seg Neutrophils # D-Dimer POC ABG pH POC ABG pO2 Potassium Chloride 111.1 H Carbon Dioxide 20 L BUN 23 H Creatinine 1.4 H Glucose 136 H POC Glucose 180 H 205 H Hemoglobin A1c Calcium Magnesium Iron TIBC Transferrin Alkaline Phosphatase Lactate Dehydrogenase Total Creatine Kinase CK-MB (CK-2) NT-Pro-B Natriuret Pep Serum Total Protein Albumin 2.0 L Izczp-1-Tepibopnd Gamma Globulins PEP Interpretation Vitamin B12 Urine Creatinine Urine Total Protein Crossmatch 08/06/18 08/06/18 08/06/18 05:39 05:39 07:20 WBC RBC Hgb Hct MCV MCH RDW [place] % (Auto) [place] # Baso # Seg Neutrophils % Seg Neutrophils # D-Dimer POC ABG pH POC ABG pO2 Potassium Chloride 110.6 H Carbon Dioxide BUN 29 H Creatinine 1.5 H Glucose 140 H POC Glucose 133 H Hemoglobin A1c Calcium Magnesium 1.60 L Iron TIBC Transferrin Alkaline Phosphatase Lactate Dehydrogenase Total Creatine Kinase CK-MB (CK-2) NT-Pro-B Natriuret Pep Serum Total Protein 5.7 L Albumin 1.8 L Sawoa-3-Lpjfmseum 0.4 H Gamma Globulins 1.8 H PEP Interpretation see below H Vitamin B12 Urine Creatinine Urine Total Protein Crossmatch 08/06/18 08/06/18 08/06/18 12:25 13:25 16:22 WBC RBC Hgb Hct MCV MCH RDW [place] % (Auto) [place] # Baso # Seg Neutrophils % Seg Neutrophils # D-Dimer POC ABG pH POC ABG pO2 Potassium Chloride Carbon Dioxide BUN Creatinine Glucose POC Glucose 286 H 261 H Hemoglobin A1c Calcium Magnesium Iron TIBC Transferrin Alkaline Phosphatase Lactate Dehydrogenase Total Creatine Kinase CK-MB (CK-2) NT-Pro-B Natriuret Pep Serum Total Protein Albumin Nlcly-2-Kuhexmmju Gamma Globulins PEP Interpretation Vitamin B12 Urine Creatinine 100.4 H Urine Total Protein 313 H Crossmatch 08/06/18 08/07/18 08/07/18 22:03 07:21 08:30 WBC RBC Hgb Hct MCV MCH RDW [place] % (Auto) [place] # Baso # Seg Neutrophils % Seg Neutrophils # D-Dimer POC ABG pH POC ABG pO2 Potassium 5.2 H Chloride 109.7 H Carbon Dioxide BUN 30 H Creatinine 1.6 H Glucose 162 H POC Glucose 293 H 180 H Hemoglobin A1c Calcium Magnesium Iron TIBC Transferrin Alkaline Phosphatase Lactate Dehydrogenase Total Creatine Kinase CK-MB (CK-2) NT-Pro-B Natriuret Pep Serum Total Protein Albumin Zseeh-1-Ytcywpvyo Gamma Globulins PEP Interpretation Vitamin B12 Urine Creatinine Urine Total Protein Crossmatch 08/07/18 08/07/18 08/07/18 10:59 15:49 20:31 WBC RBC Hgb Hct MCV MCH RDW [place] % (Auto) [place] # Baso # Seg Neutrophils % Seg Neutrophils # D-Dimer POC ABG pH POC ABG pO2 Potassium Chloride Carbon Dioxide BUN Creatinine Glucose POC Glucose 191 H 267 H 238 H Hemoglobin A1c Calcium Magnesium Iron TIBC Transferrin Alkaline Phosphatase Lactate Dehydrogenase Total Creatine Kinase CK-MB (CK-2) NT-Pro-B Natriuret Pep Serum Total Protein Albumin Cprqz-0-Fhsmlfzme Gamma Globulins PEP Interpretation Vitamin B12 Urine Creatinine Urine Total Protein Crossmatch 08/08/18 08/08/18 08/08/18 05:18 05:18 07:10 WBC RBC 2.89 L Hgb 7.3 L Hct 22.8 L MCV MCH 25 L RDW 16.0 H [place] % (Auto) 9.1 H [place] # Baso # Seg Neutrophils % Seg Neutrophils # D-Dimer POC ABG pH POC ABG pO2 Potassium Chloride 110.4 H Carbon Dioxide BUN 31 H Creatinine 1.6 H Glucose 164 H POC Glucose 168 H Hemoglobin A1c Calcium 8.1 L Magnesium Iron TIBC Transferrin Alkaline Phosphatase Lactate Dehydrogenase Total Creatine Kinase CK-MB (CK-2) NT-Pro-B Natriuret Pep Serum Total Protein Albumin Ragcg-7-Ghqbkjofq Gamma Globulins PEP Interpretation Vitamin B12 Urine Creatinine Urine Total Protein Crossmatch 08/08/18 08/08/18 08/08/18 11:17 15:28 16:02 WBC RBC Hgb Hct MCV MCH RDW [place] % (Auto) [place] # Baso # Seg Neutrophils % Seg Neutrophils # D-Dimer 3043.96 H POC ABG pH POC ABG pO2 Potassium Chloride Carbon Dioxide BUN Creatinine Glucose POC Glucose 131 H 237 H Hemoglobin A1c Calcium Magnesium Iron TIBC Transferrin Alkaline Phosphatase Lactate Dehydrogenase Total Creatine Kinase CK-MB (CK-2) NT-Pro-B Natriuret Pep Serum Total Protein Albumin Bsjjk-8-Hhyrznkqe Gamma Globulins PEP Interpretation Vitamin B12 Urine Creatinine Urine Total Protein Crossmatch 08/08/18 08/08/18 08/08/18 16:02 18:27 20:52 WBC RBC Hgb Hct MCV MCH RDW [place] % (Auto) [place] # Baso # Seg Neutrophils % Seg Neutrophils # D-Dimer POC ABG pH 7.349 L POC ABG pO2 60 L Potassium Chloride Carbon Dioxide BUN Creatinine Glucose POC Glucose 221 H Hemoglobin A1c Calcium Magnesium Iron TIBC Transferrin Alkaline Phosphatase Lactate Dehydrogenase 327 H Total Creatine Kinase CK-MB (CK-2) NT-Pro-B Natriuret Pep Serum Total Protein Albumin Klxww-2-Ipyrsslla Gamma Globulins PEP Interpretation Vitamin B12 Urine Creatinine Urine Total Protein Crossmatch 08/09/18 08/09/18 08/09/18 04:24 08:00 11:32 WBC RBC Hgb Hct MCV MCH RDW [place] % (Auto) [place] # Baso # Seg Neutrophils % Seg Neutrophils # D-Dimer POC ABG pH POC ABG pO2 Potassium Chloride 110.3 H Carbon Dioxide BUN 34 H Creatinine 1.5 H Glucose 152 H POC Glucose 123 H 246 H Hemoglobin A1c Calcium Magnesium Iron TIBC Transferrin Alkaline Phosphatase Lactate Dehydrogenase Total Creatine Kinase CK-MB (CK-2) NT-Pro-B Natriuret Pep Serum Total Protein Albumin Ukpfd-4-Eraidhhdl Gamma Globulins PEP Interpretation Vitamin B12 Urine Creatinine Urine Total Protein Crossmatch 08/09/18 08/09/18 08/10/18 15:37 20:54 08:30 WBC RBC 2.78 L Hgb 7.1 L Hct 22.5 L MCV MCH 26 L RDW 16.1 H [place] % (Auto) 9.9 H [place] # 1.0 H Baso # Seg Neutrophils % Seg Neutrophils # D-Dimer POC ABG pH POC ABG pO2 Potassium Chloride Carbon Dioxide BUN Creatinine Glucose POC Glucose 243 H 158 H Hemoglobin A1c Calcium Magnesium Iron TIBC Transferrin Alkaline Phosphatase Lactate Dehydrogenase Total Creatine Kinase CK-MB (CK-2) NT-Pro-B Natriuret Pep Serum Total Protein Albumin Paloh-6-Ctxerhccl Gamma Globulins PEP Interpretation Vitamin B12 Urine Creatinine Urine Total Protein Crossmatch 08/10/18 08/10/18 08/10/18 08:30 12:12 16:29 WBC RBC Hgb Hct MCV MCH RDW [place] % (Auto) [place] # Baso # Seg Neutrophils % Seg Neutrophils # D-Dimer POC ABG pH POC ABG pO2 Potassium Chloride 108.7 H Carbon Dioxide BUN 34 H Creatinine 1.5 H Glucose POC Glucose 191 H 164 H Hemoglobin A1c Calcium 8.2 L Magnesium Iron TIBC Transferrin Alkaline Phosphatase Lactate Dehydrogenase Total Creatine Kinase CK-MB (CK-2) NT-Pro-B Natriuret Pep Serum Total Protein Albumin Odqgn-2-Fpkkwtzby Gamma Globulins PEP Interpretation Vitamin B12 Urine Creatinine Urine Total Protein Crossmatch 08/10/18 08/11/18 08/11/18 21:22 05:04 05:04 WBC RBC Hgb 7.0 L Hct 21.8 L MCV MCH RDW [place] % (Auto) [place] # Baso # Seg Neutrophils % Seg Neutrophils # D-Dimer POC ABG pH POC ABG pO2 Potassium Chloride 110.1 H Carbon Dioxide BUN 33 H Creatinine 1.6 H Glucose 114 H POC Glucose 201 H Hemoglobin A1c Calcium Magnesium 1.60 L Iron TIBC Transferrin Alkaline Phosphatase Lactate Dehydrogenase Total Creatine Kinase CK-MB (CK-2) NT-Pro-B Natriuret Pep Serum Total Protein Albumin Prbio-0-Oschhneoi Gamma Globulins PEP Interpretation Vitamin B12 Urine Creatinine Urine Total Protein Crossmatch 08/11/18 08/11/18 08/11/18 07:16 09:36 11:23 WBC RBC Hgb Hct MCV MCH RDW [place] % (Auto) [place] # Baso # Seg Neutrophils % Seg Neutrophils # D-Dimer POC ABG pH POC ABG pO2 Potassium Chloride Carbon Dioxide BUN Creatinine Glucose POC Glucose 117 H 395 H Hemoglobin A1c Calcium Magnesium Iron TIBC Transferrin Alkaline Phosphatase Lactate Dehydrogenase Total Creatine Kinase CK-MB (CK-2) NT-Pro-B Natriuret Pep Serum Total Protein Albumin Wyakh-3-Qbnocbqeh Gamma Globulins PEP Interpretation Vitamin B12 Urine Creatinine Urine Total Protein Crossmatch See Detail Chest x-ray: report reviewed, image reviewed Additional Studies: CXR done today 08/11/18 AP CHEST: HISTORY: Pleural effusion A moderate left pleural effusion is identified which has increased by 1 or 2 rib levels since 08/08/18. Mild cardiomegaly and pulmonary venous congestion are stable. No right pleural effusion or obvious infiltrate. Compressive atelectasis at the left lung base. IMPRESSION: Mild volume overload/CHF as described.
--- NOTE | 2018-08-11 22:13 | Cat Scan Report ---
PROCEDURE: CT CHEST WO CON TECHNIQUE: Computerized axial tomography of the chest was performed without contrast material. This study is performed without intravenous contrast and the sensitivity for pathology, including neoplasm s, adenopathy, abscess, pulmonary embolism and aortic dissection, is reduced. CT DOSE LENGTH PRODUCT: 1047.1 mGycm HISTORY: breast cancer and SOB; ? metastatic disease COMPARISONS: 08/06/2018. FINDINGS: Moderate degree bilateral pleural effusions are identified which however appear to be smaller compare d to the prior study Large area of consolidation is noted involving left lower lobe. Left lingula als o demonstrates mild degree of consolidation. Smaller areas of consolidation are noted right upper lob e and right lower lobe. There is evidence of diffuse interstitial prominence involving bilateral lung s. Mild degree mediastinal lymphadenopathy is noted. Aorta is of normal caliber. Coronary arterial ca lcification is noted. Skin thickening is noted involving bilateral breasts. There is mild degree bila teral axillary lymphadenopathy. Diffuse cutaneous fat induration is identified. Vertebral height is n ormal. IMPRESSION:. Mild interval improvement in bilateral pleural effusions Areas of consolidation involving bilateral lungs left more than right Suspicious for pneumonia. Mild degree mediastinal and bilateral axillary lymphadenopathy. Generalized edema Bilateral breast skin thickening is noted. This document is electronically signed by Pardeep Colmenares MD., Aug 11 2018 10:11:46 PM ET
[2018-08-12 01:05] LABS: Hematocrit 25.2 % (30.3-42.9); Hemoglobin 8.1 gm/dl (10.1-14.3)
[2018-08-12] MEDS: LASIX IV SCH ×2 (05:29→17:28)
[2018-08-12 06:54] LABS: Calcium 8.4 mg/dL (8.4-10.2)
[2018-08-12] MEDS: HumaLOG SUB-Q SCH ×4 (07:59→23:29)
--- NOTE | 2018-08-12 08:24 | Consultation ---
History of Present Illness Consult date: 08/12/18 Reason for consult: other (Right breast mass) Chief complaint: Right breast mass - History of present illness History of present illness: This is a 68-year-old -[place] lady recently admitted for bilateral pleural effusions and congestive heart exacerbation. Patient with a reported greater than 6 year history a right breast mass and she declined initial workup and treatment of obvious breast cancer. Patient is currently not followed by breast surgery or by medical oncologist. She does report a family history of breast cancer in 2 sisters diagnosed in their 50s with one recently last year. Past History Past Medical History: diabetes, heart failure, hypertension Family history: cancer (breast cancer in 2 sisters) Medications and Allergies Allergies Allergy/AdvReac Type Severity Reaction Status Date / Time No Known Allergies Allergy Unverified 08/04/18 12:53 Home Medications Medication Instructions Recorded Confirmed Last Taken Type No Known Home Medications [No 08/04/18 08/04/18 Unknown History Reported Home Medications] Active Meds: Active Medications Acetaminophen (Tylenol) 650 mg PO Q4H PRN PRN Reason: Pain MILD(1-3)/Fever >100.5/GANT Albuterol/Ipratropium (Duoneb *Not For Prn Use*) 1 ampul IH TIDRT [facility] Last Admin: 08/11/18 20:35 Dose: Not Given Documented by: Amlodipine Besylate (Norvasc) 10 mg PO QDAY [facility] Last Admin: 08/11/18 09:18 Dose: 10 mg Documented by: Arformoterol Tartrate (Brovana Nebu) 15 mcg IH Q12HRT [facility] Last Admin: 08/11/18 20:35 Dose: 15 mcg Documented by: Budesonide (Pulmicort) 0.5 mg IH Q12HRT [facility] Last Admin: 08/11/18 20:35 Dose: 0.5 mg Documented by: Famotidine (Pepcid) 20 mg PO BID [facility] Last Admin: 08/11/18 22:35 Dose: 20 mg Documented by: Furosemide (Lasix) 40 mg IV 0600,1800 [facility] Last Admin: 08/12/18 05:29 Dose: 40 mg Documented by: Heparin Sodium (Porcine) (Heparin) 5,000 unit SUB-Q Q12HR [facility] Last Admin: 08/11/18 22:36 Dose: 5,000 unit Documented by: Hydralazine HCl (Apresoline) 10 mg IV Q3H PRN PRN Reason: Blood Pressure Last Admin: 08/08/18 20:41 Dose: 10 mg Documented by: Insulin Human Isoph/Insulin Regular (Humulin 70/30) 12 unit SUB-Q BIDDIAB [facility] Last Admin: 08/12/18 08:00 Dose: Not Given Documented by: Insulin Human Lispro (Humalog) 0 unit SUB-Q ACHS [facility]; Protocol Last Admin: 08/12/18 07:59 Dose: Not Given Documented by: Losartan Potassium (Cozaar) 100 mg PO QDAY [facility] Last Admin: 08/11/18 09:19 Dose: 100 mg Documented by: Magnesium Oxide (Mag-Ox) 400 mg PO BID [facility] Last Admin: 08/11/18 22:35 Dose: 400 mg Documented by: Morphine Sulfate (Morphine) 2 mg IV Q4H PRN PRN Reason: Pain, Moderate (4-6) Last Admin: 08/11/18 05:21 Dose: 2 mg Documented by: Ondansetron HCl (Zofran) 4 mg IV Q8H PRN PRN Reason: Nausea And Vomiting Sodium Chloride (Sodium Chloride Flush Syringe 10 Ml) 10 ml IV BID [facility] Last Admin: 08/11/18 22:36 Dose: 10 ml Documented by: Sodium Chloride (Sodium Chloride Flush Syringe 10 Ml) 10 ml IV PRN PRN PRN Reason: LINE FLUSH Last Admin: 08/06/18 06:11 Dose: 10 ml Documented by: Review of Systems All systems: negative - Breasts right: change in shape, swelling, masses, skin changes mass (right breast necrotic mass) - Respiratory shortness of breath Exam Vital Signs Temp Pulse Resp BP Pulse Ox 98.7 F 102 H 18 157/88 84 08/04/18 12:53 08/04/18 12:53 08/04/18 12:53 08/04/18 12:53 08/04/18 12:53 - General physical appearance Positive: well developed, well nourished - Eyes Positive: PERRL, normal occular movement - ENT Positive: normal pinna, no congestion - Neck Positive: no masses, no bruits, trachea midline - Respiratory Positive: other (on continuous oxygen) - Cardiovascular Rhythm: regular - Extremities Extremities: no ischemia - Breasts Breasts: other (right breast necrotic mass of at least 7 cm with palpable axillary lymphadenopathy-neglected breast cancer) - Abdomen Abdomen: Present: soft - Genitourinary Female Genitourinary: deferred - Integumentary no rash, no growths, no abnormal pigmentation - Neurologic Neurologic: alert and oriented to time, place and person, motor strength and sensation are grossly intact, CN II-XII intact - Musculoskeletal normal posture - Psychiatric Psychiatric: appropriate mood/affect, intact judgment & insight, memory intact, cooperative Results - Labs 08/12/18 00:52 08/12/18 05:36 Abnormal lab results 08/11/18 08/11/18 08/11/18 Range/Units 09:36 11:23 16:12 Hgb (10.1-14.3) gm/dl Hct (30.3-42.9) % Chloride (98-107) mmol/L BUN (7-17) mg/dL Creatinine (0.7-1.2) mg/dL Glucose (65-100) mg/dL POC Glucose 395 H 254 H (70-105) Crossmatch See Detail 08/12/18 08/12/18 Range/Units 00:52 05:36 Hgb 8.1 L (10.1-14.3) gm/dl Hct 25.2 L (30.3-42.9) % Chloride 109.4 H (98-107) mmol/L BUN 40 H (7-17) mg/dL Creatinine 1.5 H (0.7-1.2) mg/dL Glucose 55 L (65-100) mg/dL POC Glucose (70-105) Crossmatch Diabetes panel 08/12/18 Range/Units 05:36 Sodium 142 (137-145) mmol/L Potassium 4.6 (3.6-5.0) mmol/L Chloride 109.4 H (98-107) mmol/L Carbon Dioxide 25 (22-30) mmol/L BUN 40 H (7-17) mg/dL Creatinine 1.5 H (0.7-1.2) mg/dL Glucose 55 L (65-100) mg/dL Calcium 8.4 (8.4-10.2) mg/dL Calcium panel 08/12/18 Range/Units 05:36 Calcium 8.4 (8.4-10.2) mg/dL Pituitary panel 08/12/18 Range/Units 05:36 Sodium 142 (137-145) mmol/L Potassium 4.6 (3.6-5.0) mmol/L Chloride 109.4 H (98-107) mmol/L Carbon Dioxide 25 (22-30) mmol/L BUN 40 H (7-17) mg/dL Creatinine 1.5 H (0.7-1.2) mg/dL Glucose 55 L (65-100) mg/dL Calcium 8.4 (8.4-10.2) mg/dL Adrenal panel 08/12/18 Range/Units 05:36 Sodium 142 (137-145) mmol/L Potassium 4.6 (3.6-5.0) mmol/L Chloride 109.4 H (98-107) mmol/L Carbon Dioxide 25 (22-30) mmol/L BUN 40 H (7-17) mg/dL Creatinine 1.5 H (0.7-1.2) mg/dL Glucose 55 L (65-100) mg/dL Calcium 8.4 (8.4-10.2) mg/dL Assessment and Plan This is a 68-year-old lady recently admitted for congestive heart failure exacerbation. Physical exam with obvious neglected right breast cancer, exam probable for stage IV right breast cancer with right breast mass involving 80% of the breast with NAC involved with necrotic mass and palpable right axillary lymphadenopathy. Physical exam findings concerning for stage IV right breast cancer. Patient will need workup as an outpatient, bilateral diagnostic mammogram, breast ultrasound as well as biopsy. As I had a long discussion with patient I asked her why her breast cancer has not been treated and she voiced she declined treatment in the past. Patient is now wanting to proceed with treatment. She may be a candidate for hormonal therapy pending receptor status, medical oncology input needed. She's not a surgical candidate at this time. I'll see patient in follow-up. - Patient Problems (1) STEVIE (acute kidney injury) Current Visit: Yes Status: Acute (2) Acute and chronic respiratory failure Current Visit: Yes Status: Acute (3) Acute exacerbation of CHF (congestive heart failure) Current Visit: Yes Status: Acute Qualifiers: Heart failure type: combined systolic and diastolic Qualified Code(s): I50.43 - Acute on chronic combined systolic (congestive) and diastolic (congestive) heart failure (4) Breast mass in female Current Visit: Yes Status: Acute (5) DVT prophylaxis Current Visit: Yes Status: Acute (6) Edema Current Visit: Yes Status: Acute (7) Hypertensive emergency Current Visit: Yes Status: Acute (8) Pleural effusion, left Current Visit: Yes Status: Acute (9) Anemia Current Visit: Yes Status: Chronic Qualifiers: Anemia type: unspecified type Qualified Code(s): D64.9 - Anemia, unspecified (10) Type 2 diabetes mellitus Current Visit: Yes Status: Chronic Qualifiers: Diabetes mellitus halfway insulin use: without halfway use
--- NOTE | 2018-08-12 08:47 | Progress Note ---
Assessment and Plan 1. Acute kidney injury: Likely the STEVIE is related to proeinuria / nephrotic syndrome. Renal US was negative for [place]. Creatinine level plateaued. Monitor renal function. Avoid nephrotoxic agents. Meds dosage based on GFR. 2. Suspected Nephrotic syndrome: Urine protein creatinine ratio 3.12 Suspect Diabetic nephropathy vs Minimal change vs FSGS. Unlikely Nephritis. NUBIA, ANCA, C3, C4 and SPEP are negative. 3. FEN: Hyperkalemia, improved. Volume overload, IV Lasix. Monitor lytes. 4. HFpEF: Followed by Cards. 5. R breast mass: Seen by Heme-Onc. 6. Pleural effusion: S/p thoracentesis. 7. Anemia: POA. Subjective Date of service: 08/12/18 Principal diagnosis: anemia and breast mass Interval history: Patient was seen and examined at the bedside. Doing ok. Objective - Vital Signs Vital signs: Vital Signs - 12hr 08/11/18 08/11/18 08/11/18 20:50 22:00 22:45 Temperature Pulse Rate 107 H 95 H Pulse Rate [ 101 H Anterior Bilateral Throughout] Pulse Rate [ 100 H From Monitor] Respiratory 25 H 23 Rate Respiratory 20 Rate [Anterior Bilateral Throughout] Blood Pressure O2 Sat by Pulse 97 96 Oximetry 08/11/18 08/12/18 08/12/18 23:45 03:37 07:42 Temperature 98.2 F 97.5 F L 98.2 F Pulse Rate 96 H 83 85 Pulse Rate [ Anterior Bilateral Throughout] Pulse Rate [ From Monitor] Respiratory 22 21 18 Rate Respiratory Rate [Anterior Bilateral Throughout] Blood Pressure 151/73 131/63 172/83 O2 Sat by Pulse 96 100 95 Oximetry - General Appearance General appearance: well-developed, well-nourished, appears stated age, obese, other (not in distress) EENT: ATNC, PERRL Neck: supple Respiratory: Present: Clear to Ascultation Cardiology: regular, S1S2, no murmurs Gastrointestinal: normoactive bowel sounds Integumentary: no rash, warm and dry Neurologic: no focal deficit, no asterixis, alert and oriented x3 Musculoskeletal: other (1 to 2+ LE edema noted) Psychiatric: cooperative - Lab 08/12/18 00:52 08/13/18 06:29 Most recent lab results Calcium 8.4 mg/dL (8.4-10.2) 08/12/18 05:36 Phosphorus 3.90 mg/dL (2.5-4.5) 08/06/18 05:39 Magnesium 1.60 mg/dL (1.7-2.3) L 08/11/18 05:04 100.4 mg/dL (0.1-20.0) H 08/06/18 13:25 75 mmol/L 08/06/18 13:25 313 mg/dL (5-11.8) H 08/06/18 13:25 Medications & Allergies - Medications Allergies/Adverse Reactions: Allergies No Known Allergies Allergy (Unverified 08/04/18 12:53) Home Medications: Home Medications Medication Instructions Recorded Confirmed Last Taken Type ALBUTEROL Inhaler (OR & NICU) 2 puff IH QID PRN 30 Days #1 vial 08/13/18 Unknown Rx [Proair] Aspirin [Aspirin BABY CHEW TAB] 81 mg PO QDAY #30 tab.chew 08/13/18 Unknown Rx Budesonide/Formoterol Fumarate 10.2 gm IH BID 30 Days #1 08/13/18 Unknown Rx [Symbicort 160-4.5 Mcg Inhaler] hfa.aer.ad Furosemide [Lasix TAB] 40 mg PO QDAY #30 tablet 08/13/18 Unknown Rx Insulin NPH/Regular [NovoLIN 70/30] 12 unit SUB-Q BIDDIAB 30 Days #10 08/13/18 Unknown Rx ml Losartan [Cozaar] 100 mg PO QDAY #30 tablet 08/13/18 Unknown Rx amLODIPine [Norvasc] 10 mg PO QDAY #30 tablet 08/13/18 Unknown Rx Active Medications: Generic Name Dose Route Start Last Admin Trade Name Freq PRN Reason Stop Dose Admin Acetaminophen 650 mg 08/04/18 23:08 Tylenol PO Q4H PRN Pain MILD(1-3)/Fever >100.5/GANT Albuterol/Ipratropium 1 ampul 08/05/18 14:00 08/11/18 20:35 Duoneb *Not For Prn Use* IH Not Given TIDRT MARLI Amlodipine Besylate 10 mg 08/05/18 10:00 08/11/18 09:18 Norvasc PO 10 mg QDAY MARLI Administration Arformoterol Tartrate 15 mcg 08/08/18 20:00 08/11/18 20:35 Brovana Nebu IH 15 mcg Q12HRT MARLI Administration Budesonide 0.5 mg 08/08/18 20:00 08/11/18 20:35 Pulmicort IH 0.5 mg Q12HRT MARLI Administration Famotidine 20 mg 08/05/18 10:00 08/11/18 22:35 Pepcid PO 20 mg BID MARLI Administration Furosemide 40 mg 08/05/18 06:00 08/12/18 05:29 Lasix IV 40 mg 0600,1800 MARLI Administration Heparin Sodium (Porcine) 5,000 unit 08/10/18 10:00 08/11/18 22:36 Heparin SUB-Q 5,000 unit Q12HR MARLI Administration Hydralazine HCl 10 mg 08/04/18 23:10 08/08/18 20:41 Apresoline IV 10 mg Q3H PRN Administration Blood Pressure Insulin Human Isoph/Insulin Regular 12 unit 08/11/18 16:36 08/12/18 08:00 Humulin 70/30 SUB-Q Not Given BIDDIAB [facility] Insulin Human Lispro 0 unit 08/05/18 07:30 08/12/18 07:59 Humalog SUB-Q Not Given ACHS [facility] Protocol Losartan Potassium 100 mg 08/04/18 23:12 08/11/18 09:19 Cozaar PO 100 mg QDAY MARLI Administration Magnesium Oxide 400 mg 08/11/18 10:00 08/11/18 22:35 Mag-Ox PO 400 mg BID MARIL Administration Morphine Sulfate 2 mg 08/04/18 23:08 08/11/18 05:21 Morphine IV 2 mg Q4H PRN Administration Pain, Moderate (4-6) Ondansetron HCl 4 mg 08/04/18 23:08 Zofran IV Q8H PRN Nausea And Vomiting Sodium Chloride 10 ml 08/05/18 10:00 08/11/18 22:36 Sodium Chloride Flush Syringe 10 Ml IV 10 ml BID MARLI Administration Sodium Chloride 10 ml 08/04/18 23:08 08/06/18 06:11 Sodium Chloride Flush Syringe 10 Ml IV 10 ml PRN PRN Administration LINE FLUSH
[2018-08-12] MEDS: MAG-OX PO SCH ×2 (09:20→23:29)
[2018-08-12] MEDS: NORVASC PO SCH (09:20)
[2018-08-12] MEDS: PEPCID PO SCH ×2 (09:20→23:29)
[2018-08-12] MEDS: COZAAR PO SCH (09:20)
[2018-08-12] MEDS: HEPARIN SUB-Q SCH ×2 (09:24→23:29)
[2018-08-12] MEDS: BROVANA NEBU IH SCH ×2 (09:40→19:36)
[2018-08-12] MEDS: PULMICORT IH SCH ×2 (09:40→19:36)
[2018-08-12] MEDS: DUONEB *Not for PRN Use IH SCH ×3 (09:40→19:36)
--- NOTE | 2018-08-12 10:08 | Progress Note ---
Assessment and Plan Fluid overload Heart failure with a preserved ejection fraction 60-65% by echo 04/2018 at [facility] Bilateral pleural effusion s/p thoracentesis Acute renal failure Anemia s/p blood transfusion Diabetes Hypertension Hx of Right Breast mass oncology following Anemia Noncompliant with medications and follow up Normal LVEF 60-65% by echocardiogram this admission. Conservative cardiac management. Subjective Date of service: 08/12/18 Principal diagnosis: anemia and breast mass Interval history: Patient has no complaints. No distress noted. Objective Vital Signs Temp Pulse Pulse Pulse Resp Resp BP 08/12/18 09:45 89 18 08/12/18 09:42 08/12/18 09:37 88 16 08/12/18 09:20 85 172/83 08/12/18 07:42 98.2 F 85 18 172/83 08/12/18 03:37 97.5 F L 83 21 131/63 08/11/18 23:45 98.2 F 96 H 22 151/73 08/11/18 22:45 95 H 23 08/11/18 22:00 107 H 100 H 25 H 08/11/18 20:50 101 H 20 08/11/18 20:37 103 H 20 08/11/18 20:11 100 H 169/88 08/11/18 16:19 92 H 131/83 08/11/18 14:56 96 H 08/11/18 14:07 96 H 20 08/11/18 13:57 95 H 20 08/11/18 12:48 98.3 F 82 18 135/64 08/11/18 12:47 98.4 F 92 H 18 140/64 08/11/18 12:33 98.4 F 92 H 18 134/71 08/11/18 11:46 97.9 F 93 H 18 144/66 Pulse Ox 08/12/18 09:45 08/12/18 09:42 100 08/12/18 09:37 08/12/18 09:20 08/12/18 07:42 95 08/12/18 03:37 100 08/11/18 23:45 96 08/11/18 22:45 96 08/11/18 22:00 97 08/11/18 20:50 08/11/18 20:37 97 08/11/18 20:11 98 08/11/18 16:19 100 08/11/18 14:56 100 08/11/18 14:07 08/11/18 13:57 08/11/18 12:48 95 08/11/18 12:47 93 08/11/18 12:33 93 08/11/18 11:46 95 - Physical Examination General: No Apparent Distress HEENT: Positive: PERRL Neck: Positive: trachea midline Cardiac: Positive: Reg Rate and Rhythm Lungs: Positive: Decreased Breath Sounds Neuro: Positive: Grossly Intact Extremities: Present: +3 Edema - Labs and Meds CBC 08/12/18 Range/Units 00:52 Hgb 8.1 L (10.1-14.3) gm/dl Hct 25.2 L (30.3-42.9) % Comprehensive Metabolic Panel 08/12/18 Range/Units 05:36 Sodium 142 (137-145) mmol/L Potassium 4.6 (3.6-5.0) mmol/L Chloride 109.4 H (98-107) mmol/L Carbon Dioxide 25 (22-30) mmol/L BUN 40 H (7-17) mg/dL Creatinine 1.5 H (0.7-1.2) mg/dL Glucose 55 L (65-100) mg/dL Calcium 8.4 (8.4-10.2) mg/dL
--- NOTE | 2018-08-12 11:33 | Hem/Onc Progress Note ---
Assessment and Plan 1. Right breast mass, likely neoplastic. 2. Short of breath. 3. Low albumin. 4. Anemia. Serum iron is low. B12 is normal. We will follow. 5. Diabetes. 6. Hypertension. 7. I will follow the patient during inpatient stay and then in the clinic. radiology of the chest, 8. renal impairement - nephrology following CT chest - non contrast - breast mass at [facility] in Mar 2018 - CA 27-29 was high low albumin thoracentesis done iv iron trial pl fluid -d/w dr vyas - path - report neg 08/12 - d/w dr Vidal - IR - general surgeon and plastic surgeon consulted - ? OP follow up an option for the breast lesion - Patient Problems (1) Breast mass in female Current Visit: Yes Status: Acute Subjective Date of service: 08/12/18 Principal diagnosis: rt breast mass Interval history: on o2 - path report neg for malignancy Objective - Constitutional Vitals: Last Vital Signs Temp 98.2 F 08/12/18 07:42 Pulse 89 08/12/18 09:45 Resp 18 08/12/18 09:45 BP 172/83 08/12/18 09:20 Pulse Ox 100 08/12/18 09:42 Pain Intensity (0-10): denies any pain General appearance: no acute distress Performance status: 3-limited selfcare - EENT Eyes: EOM intact ENT: hearing intact Lymph node exam: negative cervical - Neck Neck: normal ROM - Respiratory Respiratory effort: Positive: other (o2 ) Respiratory: bilateral: diminished - Cardiovascular Heart Sounds: Present: S1 & S2 Extremity abnormal: edema - Gastrointestinal General gastrointestinal: Present: soft, non-tender Rectal Exam: deferred - Genitourinary Female genitourinary: Present: deferred - Integumentary Integumentary: warm - Musculoskeletal Musculoskeletal: generalized weakness - Neurologic Neurologic: moves all extremities - Labs Lab Results: Laboratory Results - last 24 hr 08/11/18 08/11/18 08/11/18 09:36 16:12 21:35 Hgb Hct Sodium Potassium Chloride Carbon Dioxide Anion Gap BUN Creatinine Estimated GFR BUN/Creatinine Ratio Glucose POC Glucose 254 H 97 Calcium Blood Type A POSITIVE Antibody Screen Negative Crossmatch See Detail 08/12/18 08/12/18 08/12/18 00:52 05:36 07:45 Hgb 8.1 L Hct 25.2 L Sodium 142 Potassium 4.6 Chloride 109.4 H Carbon Dioxide 25 Anion Gap 12 BUN 40 H Creatinine 1.5 H Estimated GFR 42 BUN/Creatinine Ratio 27 Glucose 55 L POC Glucose 74 Calcium 8.4 Blood Type Antibody Screen Crossmatch Medications & Allergies - Medications Allergies/Adverse Reactions: Allergies No Known Allergies Allergy (Unverified 08/04/18 12:53) Home Medications: Home Medications Medication Instructions Recorded Confirmed Last Taken Type No Known Home Medications [No 08/04/18 08/04/18 Unknown History Reported Home Medications] Active Medications: Generic Name Dose Route Start Last Admin Trade Name Freq PRN Reason Stop Dose Admin Acetaminophen 650 mg 08/04/18 23:08 Tylenol PO Q4H PRN Pain MILD(1-3)/Fever >100.5/GANT Albuterol/Ipratropium 1 ampul 08/05/18 14:00 08/12/18 09:40 Duoneb *Not For Prn Use* IH 1 ampul TIDRT MARLI Administration Amlodipine Besylate 10 mg 08/05/18 10:00 08/12/18 09:20 Norvasc PO 10 mg QDAY MARLI Administration Arformoterol Tartrate 15 mcg 08/08/18 20:00 08/12/18 09:40 Brovana Nebu IH 15 mcg Q12HRT MARLI Administration Budesonide 0.5 mg 08/08/18 20:00 08/12/18 09:40 Pulmicort IH 0.5 mg Q12HRT MARLI Administration Famotidine 20 mg 08/05/18 10:00 08/12/18 09:20 Pepcid PO 20 mg BID MARLI Administration Furosemide 40 mg 08/05/18 06:00 08/12/18 05:29 Lasix IV 40 mg 0600,1800 MARLI Administration Heparin Sodium (Porcine) 5,000 unit 08/10/18 10:00 08/12/18 09:24 Heparin SUB-Q 5,000 unit Q12HR MARLI Administration Hydralazine HCl 10 mg 08/04/18 23:10 08/08/18 20:41 Apresoline IV 10 mg Q3H PRN Administration Blood Pressure Insulin Human Isoph/Insulin Regular 12 unit 08/11/18 16:36 08/12/18 08:00 Humulin 70/30 SUB-Q Not Given BIDDIAB MARLI Insulin Human Lispro 0 unit 08/05/18 07:30 08/12/18 07:59 Humalog SUB-Q Not Given ACHS MARLI Protocol Losartan Potassium 100 mg 08/04/18 23:12 08/12/18 09:20 Cozaar PO 100 mg QDAY MARLI Administration Magnesium Oxide 400 mg 08/11/18 10:00 08/12/18 09:20 Mag-Ox PO 400 mg BID MARLI Administration Morphine Sulfate 2 mg 08/04/18 23:08 08/11/18 05:21 Morphine IV 2 mg Q4H PRN Administration Pain, Moderate (4-6) Ondansetron HCl 4 mg 08/04/18 23:08 Zofran IV Q8H PRN Nausea And Vomiting Sodium Chloride 10 ml 08/05/18 10:00 08/11/18 22:36 Sodium Chloride Flush Syringe 10 Ml IV 10 ml BID MARLI Administration Sodium Chloride 10 ml 08/04/18 23:08 08/06/18 06:11 Sodium Chloride Flush Syringe 10 Ml IV 10 ml PRN PRN Administration LINE FLUSH
--- NOTE | 2018-08-12 12:27 | Progress Note ---
Assessment and Plan Acute hypoxic respiratory failure, present on admission - Due to acute exacerbation of CHF and bilateral pleural effusion - Continue supplemental O2 and Herman as tolerated - repeat CT pending - consulted pulmonary, will follow recommendation - Braething status much improved following thoracentesis - will need home O2 on discharge / Hypertensive emergency BP improving Patient given multiple doses of IV hydralazine to bring the blood pressure down Losartan Coreg and amlodipine added, IV hydralazine every 3 hours when necessary /Acute exacerbation of CHF (congestive heart failure) with preserved EF Patient initiated on IV Lasix and potassium Echocardiogram during this admission and previous echo at [facility] showed EF was 60-65% Cardiology following, cont lasix iv for now / Right breast mass, consulted oncology - CT scan showed a right breast mass involving skin - Planned for biopsy, breast surgeon consulted -likely will see the pt on Saturday /b/l Pleural effusion, - Moderate to severe pleural effusion bilaterally - Status post left-sided thoracentesis 08/07/18 drained 1.4 L of fluid - s/p right-sided thoracentesis on 08/08/18 drained 900cc - pleural fluid study - showed atypical cells only /Type 2 diabetes mellitus hemoglobin A1c 10.8 SSI and long acting Coverage for now /hyperkalemia, due to STEVIE, resolved / STEVIE (acute kidney injury) Patient on Lasix, Cr stable Nephrology consult requested because the Lasix can increase the creatinine /Anemia of chronic disease and Fe deficiency replaced iron, transfuse one unit prbc as Hb 7.0 / DVT prophylaxis On Lovenox and GI prophylaxis Disposition: possible home with home O2, ordered PT eval Brief History: 68-year-old woman with a history of Diabetes, Hypertension and a Right Breast Mass for several years who presents to the hospital with shortness of breath and bilateral lower extremity edema with huge breast mass. Chest x-ray reveals bilateral pleural effusion, with at least moderate severity effusion on the left. The lung crooks show mild interstitial edema. EKG is normal sinus rhythm with no acute changes, essentially normal ECG. Radiological data: EKG: report reviewed (sinus tachycardia probable left ventricular enlargement and left atrial enlargement) Chest x-ray: Mild CHF. CT chest: Marked generalized edema. Right retroareolar 6 cm masslike area and overlying skin thickening. Bilateral moderate to large pleural effusions with adjacent compressive/dependent atelectasis, left more than right. Diffuse interstitial thickening could be interstitial edema and/or chronic disease. Mild emphysema in the upper lobes. Hospitalist Physical exam: GENERAL: well-developed and well-nourished elderly AAF lying on bed appeared to be in no discomfort. HEENT: Normocephalic. Atraumatic. No conjunctival congestion or icterus. Patient has moist mucous membranes. NECK: Supple. Trachea midline. CHEST/LUNGS: Clear to auscultated bilaterally, breathing nonlabored. No wheezes crackles or rhonchi. right sided breast mass HEART/CARDIOVASCULAR: Regular in rate and rhythm. S1 and S2 positive. ABDOMEN: Abdomen is soft, nontender. Patient has normal bowel sounds. SKIN: There is no rash. Warm and dry. NEURO: No focal motor deficit. Follows command. MUSCULOSKELETAL: No joint effusion or tenderness. EXTRIMITY: No edema, no cyanosis or clubbing. PSYCH: Cooperative. Subjective Date of service: 08/12/18 Principal diagnosis: anemia and breast mass Interval history: Patient seen and examined. Medical records and medication list reviewed. No acute event overnight noted by the RN. Patient states her breathing much improved. Patient is tolerating diet. Patient is still on N/C oxygen, pending PT eval and breast surgery evaluation Objective - Constitutional Vitals: Vital Signs - 12hr 08/12/18 08/12/18 08/12/18 03:37 07:42 09:20 Temperature 97.5 F L 98.2 F Pulse Rate 83 85 85 Pulse Rate [ Anterior Bilateral Throughout] Respiratory 21 18 Rate Respiratory Rate [Anterior Bilateral Throughout] Blood Pressure 131/63 172/83 172/83 O2 Sat by Pulse 100 95 Oximetry 08/12/18 08/12/18 08/12/18 09:37 09:42 09:45 Temperature Pulse Rate Pulse Rate [ 88 89 Anterior Bilateral Throughout] Respiratory Rate Respiratory 16 18 Rate [Anterior Bilateral Throughout] Blood Pressure O2 Sat by Pulse 100 Oximetry 08/12/18 08/12/18 10:00 11:12 Temperature 97.9 F Pulse Rate 85 96 H Pulse Rate [ Anterior Bilateral Throughout] Respiratory 20 Rate Respiratory Rate [Anterior Bilateral Throughout] Blood Pressure 158/69 O2 Sat by Pulse 91 Oximetry - Labs CBC & Chem 7: 08/12/18 00:52 08/13/18 06:29 Labs: Abnormal lab results 08/11/18 08/11/18 08/12/18 Range/Units 09:36 16:12 00:52 Hgb 8.1 L (10.1-14.3) gm/dl Hct 25.2 L (30.3-42.9) % Chloride (98-107) mmol/L BUN (7-17) mg/dL Creatinine (0.7-1.2) mg/dL Glucose (65-100) mg/dL POC Glucose 254 H (70-105) Crossmatch See Detail 08/12/18 08/12/18 Range/Units 05:36 11:14 Hgb (10.1-14.3) gm/dl Hct (30.3-42.9) % Chloride 109.4 H (98-107) mmol/L BUN 40 H (7-17) mg/dL Creatinine 1.5 H (0.7-1.2) mg/dL Glucose 55 L (65-100) mg/dL POC Glucose 141 H (70-105) Crossmatch
[2018-08-12 12:32] LABS: ANA Screen, IFA Negative (Negative)
[2018-08-12] MEDS: MORPHINE IV PRN (14:34)
[2018-08-12] MEDS: SODIUM CHLORIDE FLUSH SYRINGE 10 ML IV SCH ×2 (14:50→23:29)
[2018-08-13] MEDS: LASIX IV SCH (06:57)
--- NOTE | 2018-08-13 07:39 | Hem/Onc Progress Note ---
Assessment and Plan 1. Right breast mass, likely neoplastic. 2. Short of breath. 3. Low albumin. 4. Anemia. Serum iron is low. B12 is normal. We will follow. 5. Diabetes. 6. Hypertension. 7. I will follow the patient during inpatient stay and then in the clinic. radiology of the chest, 8. renal impairement - nephrology following CT chest - non contrast - breast mass at [facility] in Mar 2018 - CA 27-29 was high low albumin thoracentesis done iv iron trial pl fluid -d/w dr vyas - path - report neg 08/13 - ? OP follow up an option for the breast lesion - Patient Problems (1) Breast mass in female Status: Acute Subjective Date of service: 08/13/18 Principal diagnosis: breast mass Interval history: feeling better - on o2 Objective - Constitutional Vitals: Last Vital Signs Temp 98.4 F 08/13/18 04:13 Pulse 90 08/13/18 04:13 Resp 18 08/13/18 04:13 BP 139/75 08/13/18 04:13 Pulse Ox 98 08/13/18 04:13 Pain Intensity (0-10): denies any pain General appearance: no acute distress Performance status: 3-limited selfcare - EENT Eyes: EOM intact ENT: hearing intact Lymph node exam: negative cervical - Neck Neck: supple - Respiratory Respiratory effort: Positive: labored (on o2) Respiratory: bilateral: diminished - Cardiovascular Heart Sounds: Present: S1 & S2 Extremity abnormal: edema - Gastrointestinal General gastrointestinal: Present: soft, non-tender Rectal Exam: deferred - Genitourinary Female genitourinary: Present: deferred - Integumentary Integumentary: warm - Musculoskeletal Musculoskeletal: strength equal bilaterally, generalized weakness - Neurologic Neurologic: moves all extremities - Labs Lab Results: Laboratory Results - last 24 hr 08/06/18 08/12/18 08/12/18 05:39 07:45 11:14 POC Glucose 74 141 H NUBIA Screen Negative 08/12/18 08/12/18 16:05 22:56 POC Glucose 190 H 174 H NUBIA Screen Medications & Allergies - Medications Allergies/Adverse Reactions: Allergies No Known Allergies Allergy (Unverified 08/04/18 12:53) Home Medications: Home Medications Medication Instructions Recorded Confirmed Last Taken Type ALBUTEROL Inhaler (OR & NICU) 2 puff IH QID PRN 30 Days #1 vial 08/13/18 Unknown Rx [Proair] Aspirin [Aspirin BABY CHEW TAB] 81 mg PO QDAY #30 tab.chew 08/13/18 Unknown Rx Budesonide/Formoterol Fumarate 10.2 gm IH BID 30 Days #1 08/13/18 Unknown Rx [Symbicort 160-4.5 Mcg Inhaler] hfa.aer.ad Furosemide [Lasix TAB] 40 mg PO QDAY #30 tablet 08/13/18 Unknown Rx Insulin NPH/Regular [NovoLIN 70/30] 12 unit SUB-Q BIDDIAB 30 Days #10 08/13/18 Unknown Rx ml Losartan [Cozaar] 100 mg PO QDAY #30 tablet 08/13/18 Unknown Rx amLODIPine [Norvasc] 10 mg PO QDAY #30 tablet 08/13/18 Unknown Rx Active Medications: Generic Name Dose Route Start Last Admin Trade Name Freq PRN Reason Stop Dose Admin Acetaminophen 650 mg 08/04/18 23:08 Tylenol PO Q4H PRN Pain MILD(1-3)/Fever >100.5/GANT Albuterol/Ipratropium 1 ampul 08/05/18 14:00 08/12/18 19:36 Duoneb *Not For Prn Use* IH 1 ampul TIDRT MARLI Administration Amlodipine Besylate 10 mg 08/05/18 10:00 08/12/18 09:20 Norvasc PO 10 mg QDAY MARLI Administration Arformoterol Tartrate 15 mcg 08/08/18 20:00 08/12/18 19:36 Brovana Nebu IH Not Given Q12HRT MARLI Budesonide 0.5 mg 08/08/18 20:00 08/12/18 19:36 Pulmicort IH 0.5 mg Q12HRT MARLI Administration Famotidine 20 mg 08/05/18 10:00 08/12/18 23:29 Pepcid PO 20 mg BID MARLI Administration Furosemide 40 mg 08/05/18 06:00 08/13/18 06:57 Lasix IV 40 mg 0600,1800 MARLI Administration Heparin Sodium (Porcine) 5,000 unit 08/10/18 10:00 08/12/18 23:29 Heparin SUB-Q 5,000 unit Q12HR MARLI Administration Hydralazine HCl 10 mg 08/04/18 23:10 08/08/18 20:41 Apresoline IV 10 mg Q3H PRN Administration Blood Pressure Insulin Human Isoph/Insulin Regular 12 unit 08/11/18 16:36 08/12/18 17:28 Humulin 70/30 SUB-Q 12 unit BIDDIAB MARLI Administration Insulin Human Lispro 0 unit 08/05/18 07:30 08/12/18 23:29 Humalog SUB-Q 2 unit ACHS MARLI Administration Protocol Losartan Potassium 100 mg 08/04/18 23:12 08/12/18 09:20 Cozaar PO 100 mg QDAY MARLI Administration Magnesium Oxide 400 mg 08/11/18 10:00 08/12/18 23:29 Mag-Ox PO 400 mg BID MARLI Administration Morphine Sulfate 2 mg 08/04/18 23:08 08/12/18 14:34 Morphine IV 2 mg Q4H PRN Administration Pain, Moderate (4-6) Ondansetron HCl 4 mg 08/04/18 23:08 Zofran IV Q8H PRN Nausea And Vomiting Sodium Chloride 10 ml 08/05/18 10:00 08/12/18 23:29 Sodium Chloride Flush Syringe 10 Ml IV 10 ml BID MARLI Administration Sodium Chloride 10 ml 08/04/18 23:08 08/06/18 06:11 Sodium Chloride Flush Syringe 10 Ml IV 10 ml PRN PRN Administration LINE FLUSH
[2018-08-13 07:46] LABS: Calcium 8.3 mg/dL (8.4-10.2)
[2018-08-13] MEDS: BROVANA NEBU IH SCH (08:28)
[2018-08-13] MEDS: DUONEB *Not for PRN Use IH SCH ×2 (08:28→14:57)
[2018-08-13] MEDS: PULMICORT IH SCH (08:28)
--- NOTE | 2018-08-13 09:09 | Progress Note ---
Assessment and Plan 1. Acute kidney injury: Likely the STEVIE is related to proeinuria / nephrotic syndrome. Renal US was negative for [place]. Creatinine level plateaued. Monitor renal function. Avoid nephrotoxic agents. Meds dosage based on GFR. 2. Suspected Nephrotic syndrome: Urine protein creatinine ratio 3.12 Likley Diabetic nephropathy. Unlikely primary glomerulopathy or Nephritis. NUBIA, ANCA, C3, C4 and SPEP are negative. 3. FEN: Hyperkalemia, improved. Volume overload, IV Lasix. Monitor lytes. 4. HFpEF: Followed by Cards. 5. R breast mass: Seen by Heme-Onc. 6. Pleural effusion: S/p thoracentesis. 7. Anemia: POA. F/u with me in 2 weeks. Subjective Date of service: 08/13/18 Principal diagnosis: rt breast mass Interval history: Patient was seen and examined at the bedside. Doing ok. Objective - Vital Signs Vital signs: Vital Signs - 12hr 08/12/18 08/13/18 08/13/18 22:00 00:00 04:13 Temperature 98.3 F 98.4 F Pulse Rate 101 H 97 H 90 Pulse Rate [ Anterior Bilateral Throughout] Respiratory 18 18 Rate Respiratory Rate [Anterior Bilateral Throughout] Blood Pressure 139/75 Blood Pressure 166/78 [Left] O2 Sat by Pulse 93 98 Oximetry 08/13/18 08/13/18 08/13/18 07:48 08:31 08:49 Temperature 97.9 F Pulse Rate 91 H Pulse Rate [ 94 H 92 H Anterior Bilateral Throughout] Respiratory 20 Rate Respiratory 20 20 Rate [Anterior Bilateral Throughout] Blood Pressure 150/71 Blood Pressure [Left] O2 Sat by Pulse 96 98 Oximetry - General Appearance General appearance: well-developed, well-nourished, appears stated age, obese, other (not in distress) EENT: ATNC, PERRL, mucous membranes moist, hearing intact, vision intact Neck: supple Respiratory: Present: Clear to Ascultation Cardiology: regular, S1S2, no murmurs Gastrointestinal: normoactive bowel sounds, no tenderness, no distended Integumentary: no rash, warm and dry Neurologic: no focal deficit, no asterixis, alert and oriented x3 Musculoskeletal: other (1+ edema of both LEs noted) Psychiatric: cooperative - Lab 08/12/18 00:52 08/13/18 06:29 Most recent lab results Calcium 8.3 mg/dL (8.4-10.2) L 08/13/18 06:29 Phosphorus 3.90 mg/dL (2.5-4.5) 08/06/18 05:39 Magnesium 1.60 mg/dL (1.7-2.3) L 08/11/18 05:04 100.4 mg/dL (0.1-20.0) H 08/06/18 13:25 75 mmol/L 08/06/18 13:25 313 mg/dL (5-11.8) H 08/06/18 13:25 Medications & Allergies - Medications Allergies/Adverse Reactions: Allergies No Known Allergies Allergy (Unverified 08/04/18 12:53) Home Medications: Home Medications Medication Instructions Recorded Confirmed Last Taken Type ALBUTEROL Inhaler (OR & NICU) 2 puff IH QID PRN 30 Days #1 vial 08/13/18 Unknown Rx [Proair] Aspirin [Aspirin BABY CHEW TAB] 81 mg PO QDAY #30 tab.chew 08/13/18 Unknown Rx Budesonide/Formoterol Fumarate 10.2 gm IH BID 30 Days #1 08/13/18 Unknown Rx [Symbicort 160-4.5 Mcg Inhaler] hfa.aer.ad Furosemide [Lasix TAB] 40 mg PO QDAY #30 tablet 08/13/18 Unknown Rx Insulin NPH/Regular [NovoLIN 70/30] 12 unit SUB-Q BIDDIAB 30 Days #10 08/13/18 Unknown Rx ml Losartan [Cozaar] 100 mg PO QDAY #30 tablet 08/13/18 Unknown Rx amLODIPine [Norvasc] 10 mg PO QDAY #30 tablet 08/13/18 Unknown Rx Active Medications: Generic Name Dose Route Start Last Admin Trade Name Freq PRN Reason Stop Dose Admin Acetaminophen 650 mg 08/04/18 23:08 Tylenol PO Q4H PRN Pain MILD(1-3)/Fever >100.5/GANT Albuterol/Ipratropium 1 ampul 08/05/18 14:00 08/13/18 08:28 Duoneb *Not For Prn Use* IH 1 ampul TIDRT MARLI Administration Amlodipine Besylate 10 mg 08/05/18 10:00 08/12/18 09:20 Norvasc PO 10 mg QDAY MARLI Administration Arformoterol Tartrate 15 mcg 08/08/18 20:00 08/13/18 08:28 Brovana Nebu IH 15 mcg Q12HRT MARLI Administration Budesonide 0.5 mg 08/08/18 20:00 08/13/18 08:28 Pulmicort IH 0.5 mg Q12HRT MARLI Administration Famotidine 20 mg 08/05/18 10:00 08/12/18 23:29 Pepcid PO 20 mg BID MARLI Administration Furosemide 40 mg 08/05/18 06:00 08/13/18 06:57 Lasix IV 40 mg 0600,1800 MARLI Administration Heparin Sodium (Porcine) 5,000 unit 08/10/18 10:00 08/12/18 23:29 Heparin SUB-Q 5,000 unit Q12HR MARLI Administration Hydralazine HCl 10 mg 08/04/18 23:10 08/08/18 20:41 Apresoline IV 10 mg Q3H PRN Administration Blood Pressure Insulin Human Isoph/Insulin Regular 12 unit 08/11/18 16:36 08/12/18 17:28 Humulin 70/30 SUB-Q 12 unit BIDDIAB MARLI Administration Insulin Human Lispro 0 unit 08/05/18 07:30 08/12/18 23:29 Humalog SUB-Q 2 unit ACHS MARLI Administration Protocol Losartan Potassium 100 mg 08/04/18 23:12 08/12/18 09:20 Cozaar PO 100 mg QDAY MARLI Administration Magnesium Oxide 400 mg 08/11/18 10:00 08/12/18 23:29 Mag-Ox PO 400 mg BID MARLI Administration Morphine Sulfate 2 mg 08/04/18 23:08 08/12/18 14:34 Morphine IV 2 mg Q4H PRN Administration Pain, Moderate (4-6) Ondansetron HCl 4 mg 08/04/18 23:08 Zofran IV Q8H PRN Nausea And Vomiting Sodium Chloride 10 ml 08/05/18 10:00 08/12/18 23:29 Sodium Chloride Flush Syringe 10 Ml IV 10 ml BID MARLI Administration Sodium Chloride 10 ml 08/04/18 23:08 08/06/18 06:11 Sodium Chloride Flush Syringe 10 Ml IV 10 ml PRN PRN Administration LINE FLUSH
[2018-08-13] MEDS: HumaLOG SUB-Q SCH ×2 (09:42→13:00)
--- NOTE | 2018-08-13 10:06 | Progress Note ---
Assessment and Plan Fluid overload Heart failure with a preserved ejection fraction 60-65% by echo 04/[address] [facility] Bilateral pleural effusion s/p thoracentesis Acute renal failure Anemia s/p blood transfusion Diabetes Hypertension Hx of Right Breast mass oncology following Anemia Noncompliant with medications and follow ups Normal LVEF 60-65% by echocardiogram this admission. Conservative cardiac management. Subjective Date of service: 08/13/18 Principal diagnosis: rt breast mass Interval history: Patient has no complaints. No distress noted. Objective Vital Signs Temp Pulse Pulse Resp Resp BP BP 08/13/18 08:49 92 H 20 08/13/18 08:31 94 H 20 08/13/18 07:48 97.9 F 91 H 20 150/71 08/13/18 04:13 98.4 F 90 18 139/75 08/13/18 00:00 98.3 F 97 H 18 166/78 08/12/18 22:00 101 H 08/12/18 21:05 20 08/12/18 19:50 105 H 24 08/12/18 19:37 101 H 29 H 08/12/18 19:24 29 H 08/12/18 19:09 98.0 F 100 H 18 167/143 08/12/18 16:21 98.2 F 98 H 20 177/70 08/12/18 16:15 99 H 158/80 08/12/18 14:38 94 H 18 08/12/18 14:34 18 08/12/18 14:30 90 16 08/12/18 11:12 97.9 F 96 H 20 158/69 Pulse Ox 08/13/18 08:49 08/13/18 08:31 98 08/13/18 07:48 96 08/13/18 04:13 98 08/13/18 00:00 93 08/12/18 22:00 08/12/18 21:05 97 08/12/18 19:50 08/12/18 19:37 08/12/18 19:24 08/12/18 19:09 92 08/12/18 16:21 94 08/12/18 16:15 86 08/12/18 14:38 08/12/18 14:34 08/12/18 14:30 08/12/18 11:12 91 - Physical Examination General: No Apparent Distress HEENT: Positive: PERRL Neck: Positive: trachea midline Cardiac: Positive: Reg Rate and Rhythm Lungs: Positive: Decreased Breath Sounds Neuro: Positive: Grossly Intact Extremities: Present: +3 Edema - Labs and Meds Comprehensive Metabolic Panel 08/13/18 Range/Units 06:29 Sodium 145 (137-145) mmol/L Potassium 4.7 (3.6-5.0) mmol/L Chloride 110.1 H (98-107) mmol/L Carbon Dioxide 24 (22-30) mmol/L BUN 40 H (7-17) mg/dL Creatinine 1.5 H (0.7-1.2) mg/dL Glucose 83 (65-100) mg/dL Calcium 8.3 L (8.4-10.2) mg/dL
[2018-08-13] MEDS: COZAAR PO SCH (10:09)
[2018-08-13] MEDS: HEPARIN SUB-Q SCH (10:09)
[2018-08-13] MEDS: MAG-OX PO SCH (10:10)
[2018-08-13] MEDS: SODIUM CHLORIDE FLUSH SYRINGE 10 ML IV SCH (10:10)
[2018-08-13] MEDS: NORVASC PO SCH (10:10)
[2018-08-13] MEDS: PEPCID PO SCH (10:10)
[2018-08-13 15:16] VITALS: BP 141/75
--- NOTE | 2018-08-13 15:20 | Discharge Summary ---
Providers - Providers Date of Admission: 08/04/18 15:04 Date of discharge: 08/13/18 Attending physician: ANSHUL DUKE 08/04/18 23:08 Consult to Physician [CONS] Routine Comment: Consulting Provider: ANDREINA RESENDEZ Physician Instructions: Reason For Exam: CHF exacerbation 08/04/18 23:36 Consult to Physician [CONS] Routine Comment: Consulting Provider: PREETI YODER Physician Instructions: Reason For Exam: STEVIE 08/05/18 16:19 Consult to Physician [CONS] Routine Comment: Consulting Provider: SHERI GONZALEZ Physician Instructions: Reason For Exam: right breast mass 08/07/18 16:10 Consult to Physician [CONS] Routine Comment: Consulting Provider: YASMINE BOOTHE Physician Instructions: Reason For Exam: acute respiratory failure 08/11/18 14:11 Consult to Physician [CONS] Routine Comment: Consulting Provider: PIEDAD JONAS Physician Instructions: Reason For Exam: right breast biopsy 08/11/18 14:12 Consult to Case Management [CONS] Routine Services Needed at Discharge: Home O2 Notified:: binder caser Additional Physician Instructions: 4L-02 at 2lpm stationary concentrator and portable via nasal cannula continuous. npi#[id number] [id number] 08/11/18 14:41 Consult to Physician [CONS] Routine Comment: Consulting Provider: TRENT GOODWIN Physician Instructions: Reason For Exam: right breast mass 08/12/18 12:27 Physical Therapy Evaluation and Treat [CONS] Routine Comment: Reason For Exam: placement [facility] Condition: Stable Hospital course: 68-year-old woman with a history of Diabetes, Hypertension and a Right Breast Mass for several years who presents to the hospital with shortness of breath and bilateral lower extremity edema with huge breast mass. Chest x-ray reveals bilateral pleural effusion, with at least moderate severity effusion on the left. The lung crooks show mild interstitial edema. EKG is normal sinus rhythm with no acute changes, essentially normal ECG. Patient was admitted for further evaluation and management. Radiological data: EKG: report reviewed (sinus tachycardia probable left ventricular enlargement and left atrial enlargement) Chest x-ray: Mild CHF. CT chest: Marked generalized edema. Right retroareolar 6 cm masslike area and overlying skin thickening. Bilateral moderate to large pleural effusions with adjacent compressive/dependent atelectasis, left more than right. Diffuse interstitial thickening could be interstitial edema and/or chronic disease. Mild emphysema in the upper lobes. Discharge diagnosis and management Acute hypoxic respiratory failure, present on admission - Due to acute exacerbation of CHF and bilateral pleural effusion - placed on supplemental O2 and Teppered as tolerated, treated underlying etiolo gy - consulted pulmonary, Breathing status much improved following thoracentesis - Arranged home O2 on discharge / Hypertensive emergency BP improved Patient given multiple doses of IV hydralazine to bring the blood pressure down Losartan Coreg and amlodipine added, also given IV hydralazine every 3 hours when necessary /Acute exacerbation of CHF (congestive heart failure) with preserved EF Patient initiated on IV Lasix and potassium Echocardiogram during this admission and previous echo at [facility] showed EF was 60-65% Cardiology consulted and will follow outpt / Right breast mass, consulted oncology - CT scan showed a right breast mass involving skin - Planned for biopsy, breast surgeon consulted -will see the patient as outpt /b/l Pleural effusion, - Moderate to severe pleural effusion bilaterally - Status post left-sided thoracentesis 08/07/18 drained 1.4 L of fluid - s/p right-sided thoracentesis on 08/08/18 drained 900cc - pleural fluid study - showed atypical cells only and no malignancy /Type 2 diabetes mellitus hemoglobin A1c 10.8 managed with SSI and long acting insulin Coverage /hyperkalemia, due to STEVIE, resolved / STEVIE (acute kidney injury) Patient was on Lasix, Cr stable Nephrology consult requested because the Lasix can increase the creatinine /Anemia of chronic disease and Fe deficiency replaced iron, transfused one unit prbc as Hb was 7.0 / DVT prophylaxis On Lovenox and GI prophylaxis Disposition: home with home O2, Hospitalist Physical exam: GENERAL: well-developed and well-nourished elderly AAF lying on bed appeared to be in no discomfort. HEENT: Normocephalic. Atraumatic. No conjunctival congestion or icterus. Patient has moist mucous membranes. NECK: Supple. Trachea midline. CHEST/LUNGS: Clear to auscultated bilaterally, breathing nonlabored. No wheezes crackles or rhonchi. right sided breast mass HEART/CARDIOVASCULAR: Regular in rate and rhythm. S1 and S2 positive. ABDOMEN: Abdomen is soft, nontender. Patient has normal bowel sounds. SKIN: There is no rash. Warm and dry. NEURO: No focal motor deficit. Follows command. MUSCULOSKELETAL: No joint effusion or tenderness. EXTRIMITY: No edema, no cyanosis or clubbing. PSYCH: Cooperative. Disposition: [id number]/[place]-06 HOME UNDER HOME [facility] Time spent for discharge: 34 minutes Core Measure Documentation - Palliative Care Palliative Care/ Comfort Measures: Not Applicable - Core Measures Any of the following diagnoses?: none Exam - Constitutional Vitals: Temp Pulse Resp BP Pulse Ox 98.2 F 99 H 20 141/75 97 08/13/18 15:11 08/13/18 15:11 08/13/18 15:11 08/13/18 15:11 08/13/18 15:11 Plan Activity: advance as tolerated, fall precautions Weight Bearing Status: Weight Bear as Tolerated Diet: low fat, low salt Special Instructions: home oxygen via Durable Medical Equipment Needed Upon Discharge: Bedside Commode Follow up with: PIEDAD JONAS MD [Staff Physician] - 7 Days SHERI GONZALEZ MD [Staff Physician] - 7 Days DE WITT JUDYMONTE RIOLICO MD [Primary Care Provider] - 3-5 Days Prescriptions: Aspirin [Aspirin BABY CHEW TAB] 81 mg PO QDAY #30 tab.chew Losartan [Cozaar] 100 mg PO QDAY #30 tablet Furosemide [Lasix TAB] 40 mg PO QDAY #30 tablet amLODIPine [Norvasc] 10 mg PO QDAY #30 tablet Insulin NPH/Regular [NovoLIN 70/30] 12 unit SUB-Q BIDDIAB 30 Days #10 ml ALBUTEROL Inhaler (OR & NICU) [Proair] 2 puff IH QID PRN 30 Days #1 vial PRN Reason: Shortness Of Breath Budesonide/Formoterol Fumarate [Symbicort 160-4.5 Mcg Inhaler] 10.2 gm IH BID 30 Days #1 hfa.aer.ad
--- NOTE | 2018-08-13 20:31 | Progress Note ---
Assessment and Plan Patient awake. Resting on 5 litres O2 ,O2 saturation 97%. Patient says breathing better.No acute respiratory distress. - Patient Problems (1) Acute and chronic respiratory failure Current Visit: Yes Status: Acute Plan to address problem: On 5 litres O2. Albuterol/atrovent aerosol treatments q 6 hours prn for shortness of breath. Brovanna/Budesonide aerosol treatments q 12 hours. Continue S/C Heparin. Continue famotidine. (2) Acute exacerbation of CHF (congestive heart failure) Current Visit: Yes Status: Acute Qualifiers: Heart failure type: combined systolic and diastolic Qualified Code(s): I50 .43 - Acute on chronic combined systolic (congestive) and diastolic (congestive) heart failure Plan to address problem: Management as per primary care and cardiology. (3) STEVIE (acute kidney injury) Current Visit: Yes Status: Acute Plan to address problem: Managent as per Neohrology. (4) Breast mass in female Current Visit: Yes Status: Acute Plan to address problem: Management as per primary care and surgery and oncology. (5) Hypertensive emergency Current Visit: Yes Status: Acute Plan to address problem: Management as per primary care. (6) Anemia Current Visit: Yes Status: Chronic Qualifiers: Anemia type: unspecified type Qualified Code(s): D64.9 - Anemia, unspecified Plan to address problem: Management as per primary care and hematology. (7) Type 2 diabetes mellitus Current Visit: Yes Status: Chronic Qualifiers: Diabetes mellitus custodial insulin use: without custodial use Plan to address problem: Management as per primary care. (8) Pleural effusion, left Current Visit: Yes Status: Acute Plan to address problem: Recommend ultrasound of left chest. Subjective Date of service: 08/13/18 Principal diagnosis: anemia and breast mass Interval history: Patient awake. Resting on 5 litres O2 ,O2 saturation 97%. Patient says breathing better. No acute respiratory distress. Objective Vital Signs - 12hr 08/13/18 08/13/18 08/13/18 08:31 08:49 10:00 Temperature Pulse Rate 90 Pulse Rate [ 94 H 92 H Anterior Bilateral Throughout] Respiratory 20 Rate Respiratory 20 20 Rate [Anterior Bilateral Throughout] Blood Pressure O2 Sat by Pulse 98 98 Oximetry 08/13/18 08/13/18 08/13/18 11:42 14:58 14:59 Temperature 98.2 F Pulse Rate 97 H Pulse Rate [ 98 H Anterior Bilateral Throughout] Respiratory 20 Rate Respiratory 20 Rate [Anterior Bilateral Throughout] Blood Pressure 141/72 O2 Sat by Pulse 98 92 Oximetry 08/13/18 08/13/18 15:11 15:12 Temperature 98.2 F Pulse Rate 99 H Pulse Rate [ 98 H Anterior Bilateral Throughout] Respiratory 20 Rate Respiratory 20 Rate [Anterior Bilateral Throughout] Blood Pressure 141/75 O2 Sat by Pulse 97 Oximetry Constitutional: no acute distress, alert Eyes: non-icteric ENT: oropharynx moist Neck: supple, no lymphadenopathy Ascultation: Left: diminished breath sounds Cardiovascular: regular rate and rhythm Gastrointestinal: normoactive bowel sounds, soft Integumentary: normal Extremities: no cyanosis, no edema Neurologic: normal mental status, non-focal exam, pupils equal and round, CN II- XII normal Psychiatric: mood appropriate CBC and BMP: 08/12/18 00:52 08/13/18 06:29 ABG, PT/INR, D-dimer: ABG POC ABG pH 7.349 (7.35-7.45) L 08/08/18 18:27 POC ABG pCO2 42.3 (35-45) 08/08/18 18:27 POC ABG pO2 60 (80-105) L 08/08/18 18:27 POC ABG HCO3 23.3 (22-26 mml/L) 08/08/18 18:27 POC ABG Total CO2 25 (23-27mmol/L) 08/08/18 18:27 POC ABG O2 Sat 89 08/08/18 18:27 PT/INR, D-dimer PT 13.7 Sec. (12.2-14.9) 08/04/18 13:30 INR 0.99 (0.87-1.13) 08/04/18 13:30 3043.96 ng/mlDDU (0-234) H 08/08/18 16:02 Abnormal lab findings: Abnormal Labs 08/04/18 08/04/18 08/04/18 13:30 13:30 23:15 WBC 11.4 H RBC 3.55 L Hgb 9.0 L Hct 27.8 L MCV 78 L MCH 25 L RDW 15.6 H Pine % (Auto) Pine # Baso # 0.2 H Seg Neutrophils % 72.9 H Seg Neutrophils # 8.3 H D-Dimer POC ABG pH POC ABG pO2 Potassium Chloride 107.9 H Carbon Dioxide BUN 23 H Creatinine 1.4 H Glucose 183 H POC Glucose Hemoglobin A1c 10.9 H Calcium Magnesium Iron TIBC Transferrin Alkaline Phosphatase 132 H Lactate Dehydrogenase Total Creatine Kinase 164 H CK-MB (CK-2) 4.3 H NT-Pro-B Natriuret Pep 4330 H Serum Total Protein Albumin 2.3 L Mpyls-0-Upvcgosyt Gamma Globulins PEP Interpretation Vitamin B12 Urine Creatinine Urine Total Protein Crossmatch 08/05/18 08/05/18 08/05/18 00:35 00:35 05:15 WBC RBC 3.30 L Hgb 8.4 L Hct 26.0 L MCV MCH 25 L RDW 15.7 H Pine % (Auto) 9.4 H Pine # 0.9 H Baso # Seg Neutrophils % Seg Neutrophils # D-Dimer POC ABG pH POC ABG pO2 Potassium Chloride Carbon Dioxide BUN Creatinine Glucose POC Glucose Hemoglobin A1c Calcium Magnesium Iron 17 L TIBC 159 L Transferrin 145 L Alkaline Phosphatase Lactate Dehydrogenase Total Creatine Kinase CK-MB (CK-2) NT-Pro-B Natriuret Pep Serum Total Protein Albumin Mzohq-2-Xsmdlgvxp Gamma Globulins PEP Interpretation Vitamin B12 > 2000 H Urine Creatinine Urine Total Protein Crossmatch 08/05/18 08/05/18 08/05/18 05:15 12:15 21:30 WBC RBC Hgb Hct MCV MCH RDW Pine % (Auto) Pine # Baso # Seg Neutrophils % Seg Neutrophils # D-Dimer POC ABG pH POC ABG pO2 Potassium Chloride 111.1 H Carbon Dioxide 20 L BUN 23 H Creatinine 1.4 H Glucose 136 H POC Glucose 180 H 205 H Hemoglobin A1c Calcium Magnesium Iron TIBC Transferrin Alkaline Phosphatase Lactate Dehydrogenase Total Creatine Kinase CK-MB (CK-2) NT-Pro-B Natriuret Pep Serum Total Protein Albumin 2.0 L Cqpap-6-Rlindmrgo Gamma Globulins PEP Interpretation Vitamin B12 Urine Creatinine Urine Total Protein Crossmatch 08/06/18 08/06/18 08/06/18 05:39 05:39 07:20 WBC RBC Hgb Hct MCV MCH RDW Pine % (Auto) Pine # Baso # Seg Neutrophils % Seg Neutrophils # D-Dimer POC ABG pH POC ABG pO2 Potassium Chloride 110.6 H Carbon Dioxide BUN 29 H Creatinine 1.5 H Glucose 140 H POC Glucose 133 H Hemoglobin A1c Calcium Magnesium 1.60 L Iron TIBC Transferrin Alkaline Phosphatase Lactate Dehydrogenase Total Creatine Kinase CK-MB (CK-2) NT-Pro-B Natriuret Pep Serum Total Protein 5.7 L Albumin 1.8 L Lyzfb-2-Mplkwaofq 0.4 H Gamma Globulins 1.8 H PEP Interpretation see below H Vitamin B12 Urine Creatinine Urine Total Protein Crossmatch 08/06/18 08/06/18 08/06/18 12:25 13:25 16:22 WBC RBC Hgb Hct MCV MCH RDW Pine % (Auto) Pine # Baso # Seg Neutrophils % Seg Neutrophils # D-Dimer POC ABG pH POC ABG pO2 Potassium Chloride Carbon Dioxide BUN Creatinine Glucose POC Glucose 286 H 261 H Hemoglobin A1c Calcium Magnesium Iron TIBC Transferrin Alkaline Phosphatase Lactate Dehydrogenase Total Creatine Kinase CK-MB (CK-2) NT-Pro-B Natriuret Pep Serum Total Protein Albumin Yocwp-8-Zyywjkdjl Gamma Globulins PEP Interpretation Vitamin B12 Urine Creatinine 100.4 H Urine Total Protein 313 H Crossmatch 08/06/18 08/07/18 08/07/18 22:03 07:21 08:30 WBC RBC Hgb Hct MCV MCH RDW Pine % (Auto) Pine # Baso # Seg Neutrophils % Seg Neutrophils # D-Dimer POC ABG pH POC ABG pO2 Potassium 5.2 H Chloride 109.7 H Carbon Dioxide BUN 30 H Creatinine 1.6 H Glucose 162 H POC Glucose 293 H 180 H Hemoglobin A1c Calcium Magnesium Iron TIBC Transferrin Alkaline Phosphatase Lactate Dehydrogenase Total Creatine Kinase CK-MB (CK-2) NT-Pro-B Natriuret Pep Serum Total Protein Albumin Pxhzg-1-Vgayuueyl Gamma Globulins PEP Interpretation Vitamin B12 Urine Creatinine Urine Total Protein Crossmatch 08/07/18 08/07/18 08/07/18 10:59 15:49 20:31 WBC RBC Hgb Hct MCV MCH RDW Pine % (Auto) Pine # Baso # Seg Neutrophils % Seg Neutrophils # D-Dimer POC ABG pH POC ABG pO2 Potassium Chloride Carbon Dioxide BUN Creatinine Glucose POC Glucose 191 H 267 H 238 H Hemoglobin A1c Calcium Magnesium Iron TIBC Transferrin Alkaline Phosphatase Lactate Dehydrogenase Total Creatine Kinase CK-MB (CK-2) NT-Pro-B Natriuret Pep Serum Total Protein Albumin Mwyqz-5-Vgbtzyjki Gamma Globulins PEP Interpretation Vitamin B12 Urine Creatinine Urine Total Protein Crossmatch 08/08/18 08/08/18 08/08/18 05:18 05:18 07:10 WBC RBC 2.89 L Hgb 7.3 L Hct 22.8 L MCV MCH 25 L RDW 16.0 H Pine % (Auto) 9.1 H Pine # Baso # Seg Neutrophils % Seg Neutrophils # D-Dimer POC ABG pH POC ABG pO2 Potassium Chloride 110.4 H Carbon Dioxide BUN 31 H Creatinine 1.6 H Glucose 164 H POC Glucose 168 H Hemoglobin A1c Calcium 8.1 L Magnesium Iron TIBC Transferrin Alkaline Phosphatase Lactate Dehydrogenase Total Creatine Kinase CK-MB (CK-2) NT-Pro-B Natriuret Pep Serum Total Protein Albumin Tujsy-1-Rotpzgqfj Gamma Globulins PEP Interpretation Vitamin B12 Urine Creatinine Urine Total Protein Crossmatch 08/08/18 08/08/18 08/08/18 11:17 15:28 16:02 WBC RBC Hgb Hct MCV MCH RDW Pine % (Auto) Pine # Baso # Seg Neutrophils % Seg Neutrophils # D-Dimer 3043.96 H POC ABG pH POC ABG pO2 Potassium Chloride Carbon Dioxide BUN Creatinine Glucose POC Glucose 131 H 237 H Hemoglobin A1c Calcium Magnesium Iron TIBC Transferrin Alkaline Phosphatase Lactate Dehydrogenase Total Creatine Kinase CK-MB (CK-2) NT-Pro-B Natriuret Pep Serum Total Protein Albumin Ndjxn-9-Xilmwjdcd Gamma Globulins PEP Interpretation Vitamin B12 Urine Creatinine Urine Total Protein Crossmatch 08/08/18 08/08/18 08/08/18 16:02 18:27 20:52 WBC RBC Hgb Hct MCV MCH RDW Pine % (Auto) Pine # Baso # Seg Neutrophils % Seg Neutrophils # D-Dimer POC ABG pH 7.349 L POC ABG pO2 60 L Potassium Chloride Carbon Dioxide BUN Creatinine Glucose POC Glucose 221 H Hemoglobin A1c Calcium Magnesium Iron TIBC Transferrin Alkaline Phosphatase Lactate Dehydrogenase 327 H Total Creatine Kinase CK-MB (CK-2) NT-Pro-B Natriuret Pep Serum Total Protein Albumin Brgta-9-Nyvrefnlu Gamma Globulins PEP Interpretation Vitamin B12 Urine Creatinine Urine Total Protein Crossmatch 08/09/18 08/09/18 08/09/18 04:24 08:00 11:32 WBC RBC Hgb Hct MCV MCH RDW Pine % (Auto) Pine # Baso # Seg Neutrophils % Seg Neutrophils # D-Dimer POC ABG pH POC ABG pO2 Potassium Chloride 110.3 H Carbon Dioxide BUN 34 H Creatinine 1.5 H Glucose 152 H POC Glucose 123 H 246 H Hemoglobin A1c Calcium Magnesium Iron TIBC Transferrin Alkaline Phosphatase Lactate Dehydrogenase Total Creatine Kinase CK-MB (CK-2) NT-Pro-B Natriuret Pep Serum Total Protein Albumin Vrgor-3-Jemzqtdbq Gamma Globulins PEP Interpretation Vitamin B12 Urine Creatinine Urine Total Protein Crossmatch 08/09/18 08/09/18 08/10/18 15:37 20:54 08:30 WBC RBC 2.78 L Hgb 7.1 L Hct 22.5 L MCV MCH 26 L RDW 16.1 H Pine % (Auto) 9.9 H Pine # 1.0 H Baso # Seg Neutrophils % Seg Neutrophils # D-Dimer POC ABG pH POC ABG pO2 Potassium Chloride Carbon Dioxide BUN Creatinine Glucose POC Glucose 243 H 158 H Hemoglobin A1c Calcium Magnesium Iron TIBC Transferrin Alkaline Phosphatase Lactate Dehydrogenase Total Creatine Kinase CK-MB (CK-2) NT-Pro-B Natriuret Pep Serum Total Protein Albumin Khgnw-2-Rhjnnriti Gamma Globulins PEP Interpretation Vitamin B12 Urine Creatinine Urine Total Protein Crossmatch 08/10/18 08/10/18 08/10/18 08:30 12:12 16:29 WBC RBC Hgb Hct MCV MCH RDW Pine % (Auto) Pine # Baso # Seg Neutrophils % Seg Neutrophils # D-Dimer POC ABG pH POC ABG pO2 Potassium Chloride 108.7 H Carbon Dioxide BUN 34 H Creatinine 1.5 H Glucose POC Glucose 191 H 164 H Hemoglobin A1c Calcium 8.2 L Magnesium Iron TIBC Transferrin Alkaline Phosphatase Lactate Dehydrogenase Total Creatine Kinase CK-MB (CK-2) NT-Pro-B Natriuret Pep Serum Total Protein Albumin Zvpjw-0-Ivkyuaiuq Gamma Globulins PEP Interpretation Vitamin B12 Urine Creatinine Urine Total Protein Crossmatch 08/10/18 08/11/18 08/11/18 21:22 05:04 05:04 WBC RBC Hgb 7.0 L Hct 21.8 L MCV MCH RDW Pine % (Auto) Pine # Baso # Seg Neutrophils % Seg Neutrophils # D-Dimer POC ABG pH POC ABG pO2 Potassium Chloride 110.1 H Carbon Dioxide BUN 33 H Creatinine 1.6 H Glucose 114 H POC Glucose 201 H Hemoglobin A1c Calcium Magnesium 1.60 L Iron TIBC Transferrin Alkaline Phosphatase Lactate Dehydrogenase Total Creatine Kinase CK-MB (CK-2) NT-Pro-B Natriuret Pep Serum Total Protein Albumin Ebbjd-2-Vwgddjvce Gamma Globulins PEP Interpretation Vitamin B12 Urine Creatinine Urine Total Protein Crossmatch 08/11/18 08/11/18 08/11/18 07:16 09:36 11:23 WBC RBC Hgb Hct MCV MCH RDW Pine % (Auto) Pine # Baso # Seg Neutrophils % Seg Neutrophils # D-Dimer POC ABG pH POC ABG pO2 Potassium Chloride Carbon Dioxide BUN Creatinine Glucose POC Glucose 117 H 395 H Hemoglobin A1c Calcium Magnesium Iron TIBC Transferrin Alkaline Phosphatase Lactate Dehydrogenase Total Creatine Kinase CK-MB (CK-2) NT-Pro-B Natriuret Pep Serum Total Protein Albumin [place]uf[place]-1-Wttlnkpam Gamma Globulins PEP Interpretation Vitamin B12 Urine Creatinine Urine Total Protein Crossmatch See Detail 08/11/18 08/12/18 08/12/18 16:12 00:52 05:36 WBC RBC Hgb 8.1 L Hct 25.2 L MCV MCH RDW Pine % (Auto) Pine # Baso # Seg Neutrophils % Seg Neutrophils # D-Dimer POC ABG pH POC ABG pO2 Potassium Chloride 109.4 H Carbon Dioxide BUN 40 H Creatinine 1.5 H Glucose 55 L POC Glucose 254 H Hemoglobin A1c Calcium Magnesium Iron TIBC Transferrin Alkaline Phosphatase Lactate Dehydrogenase Total Creatine Kinase CK-MB (CK-2) NT-Pro-B Natriuret Pep Serum Total Protein Albumin Rwttr-1-Kfzcfttqo Gamma Globulins PEP Interpretation Vitamin B12 Urine Creatinine Urine Total Protein Crossmatch 08/12/18 08/12/18 08/12/18 11:14 16:05 22:56 WBC RBC Hgb Hct MCV MCH RDW Pine % (Auto) Pine # Baso # Seg Neutrophils % Seg Neutrophils # D-Dimer POC ABG pH POC ABG pO2 Potassium Chloride Carbon Dioxide BUN Creatinine Glucose POC Glucose 141 H 190 H 174 H Hemoglobin A1c Calcium Magnesium Iron TIBC Transferrin Alkaline Phosphatase Lactate Dehydrogenase Total Creatine Kinase CK-MB (CK-2) NT-Pro-B Natriuret Pep Serum Total Protein Albumin Iyvlb-2-Ylsttnnjo Gamma Globulins PEP Interpretation Vitamin B12 Urine Creatinine Urine Total Protein Crossmatch 08/13/18 08/13/18 06:29 12:52 WBC RBC Hgb Hct MCV MCH RDW Pine % (Auto) Pine # Baso # Seg Neutrophils % Seg Neutrophils # D-Dimer POC ABG pH POC ABG pO2 Potassium Chloride 110.1 H Carbon Dioxide BUN 40 H Creatinine 1.5 H Glucose POC Glucose 115 H Hemoglobin A1c Calcium 8.3 L Magnesium Iron TIBC Transferrin Alkaline Phosphatase Lactate Dehydrogenase Total Creatine Kinase CK-MB (CK-2) NT-Pro-B Natriuret Pep Serum Total Protein Albumin Mpspo-6-Dlqxsdjjq Gamma Globulins PEP Interpretation Vitamin B12 Urine Creatinine Urine Total Protein Crossmatch
[2018-08-14 07:57] LABS: LDH,Body Fluid 97
[2018-08-14 08:01] LABS: Triglycerides,Body Fluid < 10; pH, Body Fluid 7.8
== END 2018-08-13 20:00 | disposition home health service (06) | DRG 682 ==
LOC: ED 12:30 → 4A 15:04
PROVIDERS: ADMIT Internal Medicine; ATTEND Internal Medicine
PROC: 5A09357 Assistance with Respiratory Ventilation, Less than 24 Consecutive Hours, Continuous Positive Airway Pressure (ICD-10-PCS; 2018-08-04)
PROC: 5A09357 Assistance with Respiratory Ventilation, Less than 24 Consecutive Hours, Continuous Positive Airway Pressure (ICD-10-PCS; 2018-08-06)
PROC: 0W9B3ZZ Drainage of Left Pleural Cavity, Percutaneous Approach (ICD-10-PCS; 2018-08-07)
PROC: 0W993ZZ Drainage of Right Pleural Cavity, Percutaneous Approach (ICD-10-PCS; 2018-08-08)
PROC: 4A033R1 Measurement of Arterial Saturation, Peripheral, Percutaneous Approach (ICD-10-PCS; 2018-08-08)
PROC: 5A09457 Assistance with Respiratory Ventilation, 24-96 Consecutive Hours, Continuous Positive Airway Pressure (ICD-10-PCS; 2018-08-08)
PROC: 30233N1 Transfusion of Nonautologous Red Blood Cells into Peripheral Vein, Percutaneous Approach (ICD-10-PCS; principal; 2018-08-11)
PROC: 5A09457 Assistance with Respiratory Ventilation, 24-96 Consecutive Hours, Continuous Positive Airway Pressure (ICD-10-PCS; 2018-08-11)
DX: N17.9 Acute kidney failure, unspecified (principal); J96.21 Acute and chronic respiratory failure with hypoxia; I50.43 Acute on chronic combined systolic (congestive) and diastolic (congestive) heart failure; I16.1 Hypertensive emergency; J90 Pleural effusion, not elsewhere classified; Z68.42 Body mass index [BMI] 45.0-49.9, adult; N04.9 Nephrotic syndrome with unspecified morphologic changes; I11.0 Hypertensive heart disease with heart failure; N63.10 Unspecified lump in the right breast, unspecified quadrant; E11.9 Type 2 diabetes mellitus without complications; D63.8 Anemia in other chronic diseases classified elsewhere; E87.5 Hyperkalemia; E66.9 Obesity, unspecified; Z82.49 Family history of ischemic heart disease and other diseases of the circulatory system; Z91.14 Patient's other noncompliance with medication regimen
CPT/HCPCS: 32555; 36415; 36600; 71045; 71046; 71250; 76770; 80048; 80053; 82040; 82270; 82550; 82553; 82570; 82607; 82747; 82803; 82805; 82947; 82962; 83036; 83550; 83605; 83615; 83735; 83880; 84100; 84156; 84160; 84165; 84300; 84478; 84484; 85014; 85018; 85025; 85379; 85610; 85730; 86021; 86038; 86160; 86850; 86900; 86901; 86920; 87116; 88112; 88305; 88341; 88342; 89051; 93005; 93010; 93306; 93970; 94640; 94660; 94760; 96374; 96375; G0378; J0360; J1644; J1815; J1940; J2270; J2916; J3475; J7040; P9016